=== PATIENT | female | born 1995 | race Caucasian/White ===

== ENCOUNTER 2018-01-24 02:17 | Emergency (ER) | payer OTHER, MEDICAID, SELFPAY ==
[2018-01-24 02:25] VITALS: BP 126/84; PULSE 81; RESP 16; TEMP 37; O2SAT 100; BMI 18.8
[2018-01-24 02:28] VITALS: BP 126/84; PULSE 81; RESP 16; TEMP 37; O2SAT 100; BMI 18.8
[2018-01-24] MEDS: PANTOPRAZOLE 40 MG VIAL IV (02:49)
[2018-01-24] MEDS: SODIUM CHLORIDE 0.9% 1,000 ML 1000 ML IV (02:49)
[2018-01-24] MEDS: ONDANSETRON 4 MG/2 ML INJ IV (02:49)
[2018-01-24] MEDS: KETOROLAC 60 MG/2 ML VIAL 30 MG IV (02:50)
[2018-01-24 02:54] LABS: Add Manual Diff / Slide Review NO; Basophils Percent Auto 0.3 % (0-2); Eosinophils Percent Auto 0.6 % (2-4); Hematocrit 36.3 % (36-46); Hemoglobin 12.5 g/dL (12.0-16.0); Lymphocytes Percent Auto 6.5 % (25-40); Mean Corpuscular HGB Conc 34.3 % (30-36); Mean Corpuscular Hemoglobin 29.9 PG (26-34); Mean Corpuscular Volume 87.3 fL (80-100); Neutrophils Absolute Auto 8300 /uL (3000-5900); Neutrophils Percent Auto 86.6 % (50-75); Platelet Count 238 X10^3/uL (150-400); Red Blood Cell Count 4.16 X10^6/uL (4.0-5.2); White Blood Cell Count 9.5 X10^3/uL (4.5-11.0)
[2018-01-24 02:58] LABS: Alanine Aminotransferase 41 IU/L (9-52); Albumin 4.6 g/dL (3.5-5.0); Albumin Globulin Ratio 1.6 (1.0-2.8); Alkaline Phosphatase 49 U/L (38-126); Aspartate Aminotransferase 69 IU/L (14-36); BUN Creatinine Ratio 11.7 (6-22); Bilirubin Total 0.4 mg/dL (0.2-1.3); Blood Urea Nitrogen 7 mg/dL (7-17); Calcium 9.4 mg/dL (8.4-10.2); Carbon Dioxide 28 mmol/L (22-32); Chloride 104 mmol/L (98-107); Estimated Glomerular Filt Rate > 60.0 mL/min (>60); Globulin 2.8 g/dL (1.7-4.1); Glucose 126 mg/dL (70-100); HEMOLYSIS < 15 (0-50); Lipase 83 U/L (23-300); Potassium 3.3 mmol/L (3.4-5.1); Sodium 144 mmol/L (137-145); Total Protein 7.4 g/dL (6.3-8.2)
--- NOTE | 2018-01-24 03:19 | ED_ITS ---
HPI - Abdominal Pain General Chief Complaint: Abdominal Pain Stated Complaint: STOMACH AND BACK PAIN WITH VOMITING Time Seen by Provider: 01/24/18 02:32 Source: patient Mode of arrival: ambulatory Limitations: no limitations History of Present Illness HPI narrative: Patient is a 22-year-old female who presents with vomiting and diarrhea. She said she had some loose stools today but did not think much of it. However today she started having severe epigastric pain dry heaving and vomiting which woke her from her sleep. She denies any fever or other sick contacts no recent travel. MD complaint: abdominal pain Onset (ago): hour(s) Quality: stabbing Radiation: epigastric Related Data Previous Rx's Medication Instructions Recorded ondansetron 4 mg PO Q6-8H PRN #10 tab 01/24/18 Allergies Allergy/AdvReac Type Severity Reaction Status Date / Time No Known Drug Allergies Allergy Verified 01/24/18 02:48 Review of Systems Review of Systems GENERAL: Denies chills, fatigue, malaise, fever, sweats, travel HEENT: Denies sinus pain, ear pain, sore throat, difficulty swallowing, neck pain RESPIRATORY: Denies dyspnea, cough, wheezing, hemoptysis, sputum. CARDIOVASCULAR: Denies chest pain, palpitations, orthopnea, edema GASTROINTESTINAL: See HPI : Denies dysuria, frequency, incontinence, hematuria, urinary retention, flank pain. MUSCULOSKELETAL: Denies weakness, joint pain, or bony pain SKIN: No rash, no erythema, no pruritus NEUROLOGIC: Denies weakness, dizziness, headache, numbness, change in speech, confusion PSYCHIATRIC: No concerning psychosocial issues. 12 point review of systems is negative except for those stated above and HPI PFSH Medical History Irregular menstrual cycle (Chronic ~2011) Esophagitis (Resolved ~2006) Hx of wisdom tooth extraction (Resolved 2011) Surgical History Hx of toe surgery (Resolved 2006) Family History Father Age: 56 Hypertension Kidney disease Social History Smoking Status: Never smoker alcohol intake: never substance use type: does not use Exam Initial Vital Signs Initial Vital Signs: Vital Signs Temperature 98.6 F 01/24/18 02:25 Pulse Rate 81 01/24/18 02:25 Respiratory Rate 16 01/24/18 02:25 Blood Pressure 126/84 H 01/24/18 02:25 Pulse Oximetry 100 01/24/18 02:25 GENERAL: Alert thin young female appears in pain HEENT: Head atraumatic,EOMI, pupils reactive, , dry mucous membranes CARDIOVASCULAR: Regular rate and rhythm without murmurs, rubs or gallops. RESPIRATORY: Breath sounds equal bilaterally, no wheezes rales or rhonchi. ABDOMEN: Soft, epigastric pain without guarding or rebound : No CVA tenderness EXTREMITIES: Normal range of motion, no clubbing or edema. Neurovascularly intact NEUROLOGICAL: Alert and oriented x4.Normal gait and speech. Cranial nerves II through XII grossly intact. SKIN: Warm, dry, no laceration, no petechiae, no rashes or lesions. Course Orders Ordered: ED Orders 01/24/18 02:35 Complete Blood Count AUTO DIFF Stat Comprehensive Metabolic Panel Stat Lipase Stat 01/24/18 03:05 Urine Culture Stat Urine Microscopic Stat Sodium Chloride (Normal Saline 0.9%) 1,000 mls @ 1,000 mls/hr IV CONT PAULA Last Admin: 01/24/18 02:49 Dose: 1,000 mls/hr Discontinued Medications Ketorolac Tromethamine (Toradol) 30 mg IV NOW ONE Stop: 01/24/18 02:40 Last Admin: 01/24/18 02:50 Dose: 30 mg Ondansetron HCl (Zofran) 4 mg IV NOW ONE Stop: 01/24/18 02:40 Last Admin: 01/24/18 02:49 Dose: 4 mg Ondansetron HCl (Zofran Odt Prepack) 1 bottle MISC SEEINSTR ONE Stop: 01/24/18 03:33 Pantoprazole Sodium (Protonix) 40 mg IV NOW ONE Stop: 01/24/18 02:40 Last Admin: 01/24/18 02:49 Dose: 40 mg Vital Signs - 8 hr 01/24/18 02:25 01/24/18 02:28 Temperature 98.6 F 98.6 F Pulse Rate 81 81 Respiratory Rate 16 16 Blood Pressure 126/84 H 126/84 H Pulse Oximetry 100 100 MDM - Abdominal Pain Lab Data Result diagrams: 01/24/18 02:35 01/24/18 02:35 Lab Results 01/24/18 01/24/18 01/24/18 Range/Units 02:35 02:35 03:05 WBC 9.5 (4.5-11.0) X10^3/uL RBC 4.16 (4.0-5.2) X10^6/uL Hgb 12.5 (12.0-16.0) g/dL Hct 36.3 (36-46) % MCV 87.3 (80-100) fL MCH 29.9 (26-34) PG MCHC 34.3 (30-36) % RDW 13.0 (11.6-14.8) % Plt Count 238 (150-400) X10^3/uL Neut % (Auto) 86.6 H (50-75) % Lymph % (Auto) 6.5 L (25-40) % [place] % (Auto) 6.0 (3-14) % Eos % (Auto) 0.6 L (2-4) % Baso % (Auto) 0.3 (0-2) % Neut # (Auto) 8300 H (5145-3102) /uL Sodium 144 (137-145) mmol/L Potassium 3.3 L (3.4-5.1) mmol/L Chloride 104 (98-107) mmol/L Carbon Dioxide 28 (22-32) mmol/L BUN 7 (7-17) mg/dL Creatinine 0.60 (0.52-1.04) mg/dL Estimated GFR > 60.0 (>60) mL/min BUN/Creatinine Ratio 11.7 (6-22) Glucose 126 H (70-100) mg/dL Calcium 9.4 (8.4-10.2) mg/dL Total Bilirubin 0.4 (0.2-1.3) mg/dL AST 69 H (14-36) IU/L ALT 41 (9-52) IU/L Alkaline Phosphatase 49 (38-126) U/L Total Protein 7.4 (6.3-8.2) g/dL Albumin 4.6 (3.5-5.0) g/dL Globulin 2.8 (1.7-4.1) g/dL Albumin/Globulin Ratio 1.6 (1.0-2.8) Lipase 83 (23-300) U/L Urine RBC 1-5/hpf (0-5/HPF) Urine WBC 0-1/hpf (0-5/HPF) Ur Squamous Epith Cells 0-1 /hpf Urine Bacteria Few (2-10) H (None) Urine Mucus 1+ H (Negative) Ur Culture Indicated? Specimen cultured Micro UA Comment Not Reportable Point of care testing: Point of Care Testing Test Results Negative Urine Dip Bedside Urine Glucose Negative Bedside Urine Bilirubin - Negative Bedside Urine Ketone - Negative Urine Specific [place] 1.030 Bedside Urine Occult Blood +/- Bedside Urine pH 6.0 Bedside Urine Protein - Negative Bedside Urine Urobilinogen - Negative Bedside Urine Nitrite - Negative Bedside Urine Leukocytes +/- 15 Esterase MDM Narrative Medical decision making narrative: Patient is feeling better after medications. She is tolerating oral fluid. No sign severe dehydration. Abdomen is soft. Indication on oral rehydration techniques. All questions have been addressed. Discharge Plan Departure Patient Disposition: Home, Self-Care Clinical Impression: Gastroenteritis Instructions: DI for Viral Gastroenteritis -- Adult Activity Restrictions/Additional Instructions: 1) You have been diagnosed with gastroenteritis 2) What to do: Drink frequent but small amounts of fluids. I recommend Gatorade or a Gatorade-like product, as it has small amounts of sugar and salts that improve fluid retention. 3) Take medications as directed -Zofran 1 tablet every 6-8 hours if needed for nausea or vomiting 4) Follow up with your primary care provider in 2-3 days 5) Return to ER if you should have any new or worsening symptoms such as, unable to hold down fluids despite use of anti-nausea medications and the small volume oral rehydration strategy. Prescriptions: New ondansetron 4 mg tablet,disintegrating 4 mg PO Q6-8H PRN (Reason: nausea and vomiting) Qty: 10 RF: 0 Referrals: Sophia Sawyer PA-C [Primary Care Provider] -
[2018-01-24 03:34] LABS: Bacteria Urine Few (2-10); Culture Indicated Urine Specimen Cultured; Mucus Urine 1+ (Negative); RBC Urine 1-5/HPF (0-5/HPF); Squamous Epithelial Cell Urine 0-1 /HPF; WBC Urine 0-1/HPF (0-5/HPF)
[2018-01-24] MEDS: ONDANSETRON 4 MG ODT PREPACK 1 BOTTLE MISC (03:38)
[2018-01-24 03:43] VITALS: BP 131/87; PULSE 78; RESP 16; O2SAT 100
--- NOTE | 2018-01-24 03:44 | PC.NURSE ---
IV dc, placed by jenae spencer.
== END 2018-01-24 03:45 | disposition home or self-care (01) ==
PROVIDERS: Emergency Provider Emergency Medicine; Family Provider Physician Assistant; PCP Physician Assistant
DX: K52.9 Noninfective gastroenteritis and colitis, unspecified (principal)
CPT/HCPCS: 80053; 81003; 81015; 81025; 83690; 85025; 87086; 96361; 96374; 96375; 99283; 99284; C9113; J1885; J2405

== ENCOUNTER → 2018-05-07 07:42 | Outpatient (CLI) | payer OTHER, SELFPAY ==
--- NOTE | 2018-05-07 | DI.US.S_ITS ---
PROCEDURE: US OB >= 14 WEEKS FETUS INDICATIONS: OUTSIDE/PRIOR DATING DATA: Last menstrual period (LMP): 01/20/18. LMP-based estimated date of delivery (RAFAEL): 10/27/18. First dating scan (date and location): 05/07/18, [facility]. Estimated date of delivery (RAFAEL) from first dating scan: 10/30/18. TECHNIQUE: Real-time scanning was performed of the fetus, with image documentation and biometric measurements. Endovaginal scanning: Not done COMPARISON: None. FINDINGS: General: A single live intrauterine gestation is present. Presentation: Vertex. Placenta: Placental position is posterior/low, without suki placenta previa. The inferior placental edge views seen 1.2 cm from the internal cervical os. Amniotic fluid index: Not specifically measured, yet within normal limits by visual inspection heart rate: 153 beats per minute. Maternal cervical canal: 3.3 cm long. Normal lower limit is 2.5 cm. biometrics: Biparietal diameter: 2.7 cm equals 14 weeks 6 days Head circumference: 9.7 cm equals 14 weeks 3 days Abdominal circumference: 9.2 cm equals 13 weeks 3 days Femur length: 1.5 cm equals 13 weeks 3 days Estimated gestational age from initial scan: not applicable. Composite gestational age from present scan: 14 weeks 6 days Estimated weight and percentile: Not calculated Measurement variability for biometric dating: +/- 7 days from 14 weeks to 15 weeks 6 days gestation, +/- 10 days from 16 weeks to 21 weeks 6 days gestation, +/- 2 weeks from 22 weeks to 27 weeks 6 days gestation, +/- 3 weeks for 28 weeks gestation or later. weight reference: 4500 g or EFW >90/95% is considered macrosomia or large for gestational age. EFW <10% is small for gestational age. EFW 5% or less is considered intra-uterine growth restriction. Anatomic survey: Too early for detailed anatomic screening, although no gross abnormality is identified. IMPRESSION: A single live intrauterine is seen. No significant discrepancy is found between the estimated gestational age based on these images and the estimated gestational age based upon the given date of the last menstrual period. Low-lying placenta, yet without suki placenta previa. Dictated by: Greg Philip M.D. on 05/07/2018 at 8:34 Approved by: Greg Philip M.D. on 05/07/2018 at 8:38
== END ==
PROVIDERS: PCP Family Medicine; Visit Provider Family Medicine
DX: Z34.92 Encounter for supervision of normal pregnancy, unspecified, second trimester (principal); Z3A.14 14 weeks gestation of pregnancy
CPT/HCPCS: 76811

== ENCOUNTER → 2018-07-15 14:56 | Outpatient (CLI) | payer OTHER, SELFPAY ==
--- NOTE | 2018-07-15 | DI.US.S_ITS ---
PROCEDURE: US OB >= 14 WEEKS FETUS INDICATIONS: ANATOMY SCAN OUTSIDE/PRIOR DATING DATA: Last menstrual period (LMP): 01/20/18. LMP-based estimated date of delivery (RAFAEL): 10/27/18. First dating scan (date and location): 05/07/18, [facility]. Estimated date of delivery (RAFAEL) from first dating scan: 10/30/18. TECHNIQUE: Real-time scanning was performed of the fetus, with image documentation and biometric measurements. Endovaginal scanning: No COMPARISON: [facility], , OB >= 14 WEEKS FETUS, 05/07/2018, 8:19. FINDINGS: General: A single living intrauterine gestation is present. Presentation: Vertex Placenta: Placental position is posterior, without previa. Amniotic fluid index: 10.4 cm, normal range is 5-24 cm. heart rate: 143 beats per minute. Maternal cervical canal: 3.2 cm long. Normal lower limit is 2.5 cm biometrics: Biparietal diameter: 23 weeks 4 days Head circumference: 23 weeks 5 days Abdominal circumference: 23 weeks 1 day Femur length: 22 weeks 6 days Estimated gestational age from initial scan: 24 weeks 5 days Composite gestational age from present scan: 23 weeks 3 days Estimated weight and percentile: 567 g; 3rd percentile Measurement variability for biometric dating: +/- 7 days from 14 weeks to 15 weeks 6 days gestation, +/- 10 days from 16 weeks to 21 weeks 6 days gestation, +/- 2 weeks from 22 weeks to 27 weeks 6 days gestation, +/- 3 weeks for 28 weeks gestation or later. weight reference: 4500 g or EFW >90/95% is considered macrosomia or large for gestational age. EFW <10% is small for gestational age. EFW 5% or less is considered intra-uterine growth restriction. Anatomic survey: Neuro: Ventricles are non-dilated at less than 10 mm. Cisterna magna is normal at 3-11 mm. Cerebellum is normal in size and morphology. Nuchal skin fold: Normal at less than 6 mm between 14-21 weeks gestational age. Face: Not well-seen. Spine: No evidence for spina bifida. Heart: Normal four-chamber heart and RVOT. LVOT not well-seen. Diaphragm: Diaphragm is intact. Stomach: Left-sided stomach is present. Kidneys: No hydronephrosis. Normal is less than 5 mm in 2nd trimester, less than 7 mm in 3rd trimester. Cord: 3-vessel cord has orthotopic insertion. Bladder: Normal in size. Extremities: All 4 extremities identified. IMPRESSION: 1. Single living IUP redemonstrated and interval growth is less than expected with estimated weight at the 3rd percentile. Recommend close clinical correlation to exclude early developing intrauterine growth restriction. 2. Left ventricular low outflow track as well as the facial features are not well seen. Followup recommended. Dictated by: Jas Bingham [facility] Interpreted: Patricia Baxter MD on 07/15/2018 at 16:42 Approved by: Patricia Baxter MD, PhD on 07/15/2018 at 17:51
== END ==
PROVIDERS: PCP Family Medicine; Visit Provider Family Medicine
DX: Z36.89 Encounter for other specified antenatal screening (principal); Z3A.23 23 weeks gestation of pregnancy
CPT/HCPCS: 76811

== ENCOUNTER → 2018-08-10 15:59 | Outpatient (REF) | payer OTHER, SELFPAY ==
[2018-08-10 16:12] LABS: Hematocrit 32.4 % (36-46); Hemoglobin 11.4 g/dL (12.0-16.0)
[2018-08-10 16:38] LABS: GTT (PREG) 1 Hour PP 50gm Dose 107 mg/dL (76-139)
== END ==
LOC: LAB 15:59
PROVIDERS: PCP Family Medicine; Visit Provider Family Medicine
DX: Z34.00 Encounter for supervision of normal first pregnancy, unspecified trimester (principal)
CPT/HCPCS: 82950; 85014; 85018

== ENCOUNTER → 2018-08-12 13:27 | Outpatient (CLI) | payer OTHER, MEDICAID, SELFPAY ==
--- NOTE | 2018-08-12 | DI.US.S_ITS ---
PROCEDURE: US OB FOLLOW UP INDICATIONS: FOLLOW UP OUTSIDE/PRIOR DATING DATA: Last menstrual period (LMP): 01/20/18. LMP-based estimated date of delivery (RAFAEL): 10/27/18. First dating scan (date and location): 05/07/18. Estimated date of delivery (RAFAEL) from first dating scan: 10/30/18. TECHNIQUE: Real-time scanning was performed of the fetus, with image documentation and biometric measurements. Endovaginal scanning: Not performed COMPARISON: None. FINDINGS: General: A single living intrauterine gestation is present. Presentation: Vertex. Placenta: Placental position is posterior/fundal, without previa. Lower placental edge 2 cm or less from internal cervical os qualifies as low lying placenta. Amniotic fluid index: 13.1 cm, normal range is 5-24 cm. heart rate: 122 beats per minute. Maternal cervical canal: Not visualized biometrics: Biparietal diameter: 7.1 cm, 20 weeks, 4 days Head circumference: 26.7 cm, 29 weeks one day Abdominal circumference: 23.7 cm, 20 weeks zero days Femur length: 4.6 cm, 25 weeks 3 days Estimated gestational age from initial scan: 28 weeks, 5 days Composite gestational age from present scan: 27 weeks, 6 days Estimated weight and percentile: 1045 g, 5th percentile Measurement variability for biometric dating: +/- 7 days from 14 weeks to 15 weeks 6 days gestation, +/- 10 days from 16 weeks to 21 weeks 6 days gestation, +/- 2 weeks from 22 weeks to 27 weeks 6 days gestation, +/- 3 weeks for 28 weeks gestation or later. weight reference: 4500 g or EFW >90/95% is considered macrosomia or large for gestational age. EFW <10% is small for gestational age. EFW 5% or less is considered intra-uterine growth restriction. Other: The nose, lips, 4 chamber heart, and ventricular outflow tracts have a normal appearance. IMPRESSION: 1. Single live intrauterine gestation with a composite gestational age of 27 weeks, 6 days which is concordant with the dates by initial scan. 2. Gestational weight in the 5th percentile. Developing microsomia cannot be excluded. Dictated by: Gaby Connelly M.D. on 08/12/2018 at 14:46 Approved by: Gaby Connelly M.D. on 08/12/2018 at 14:50
== END ==
PROVIDERS: PCP Family Medicine; Visit Provider Family Medicine
DX: Z34.92 Encounter for supervision of normal pregnancy, unspecified, second trimester (principal); Z3A.27 27 weeks gestation of pregnancy
CPT/HCPCS: 76816

== ENCOUNTER 2018-08-28 19:50 | Inpatient (IN) | payer OTHER, MEDICAID, SELFPAY ==
--- NOTE | 2018-08-28 20:26 | PM.OBPRVD ---
Events: Labor < 37 Weeks Delivery date: 08/28/18 Intrapartal events: Precipitous Labor < 3 hours Delivery monitor: external FHT Route of delivery: L&D Laceration Description: None Estimated blood loss (mL): 100 Anesthesia type: None Narrative: Patient arrived on Labor and delivery and was found to be completely dilated with spontaneous rupture membranes when she arrived. heart tones were reassuring. The patient delivered spontaneously over an intact perineum. The cord was clamped after 1 min and the baby transferred from the maternal abdomen to the warmer. the placenta delivered spontaneously, intact, with 3 vessels. There were no cervical, vaginal, or perineal tears. Mother is doing well. The infant is stable. Baby 1: Infant gender: Female Presentation: vertex position: Right Occiput Anterior Placenta delivery description: Spontaneous cord vessel description: 3 Vessels score (1 min): 7 score (5 min): 9
[2018-08-28 22:32] VITALS: BP 130/78
--- NOTE | 2018-08-28 23:01 | P.HPOB_ITS ---
OB HPI Date/Time Date of admission: 08/28/18 Date Patient Seen: 08/28/18 Time Patient Seen: 20:23 History of Present Condition Chief complaint: : 1 Estimated Date of Delivery: 10/31/18 Estimated Gestational Age (weeks): Thirty Narrative: Jaclyn Najera is a 23 year old female is 30 weeks gestational age who presents with is increasing abdominal pain. Patient called me a she was sent to the hospital. Apparently she was having contractions after intercourse at 3 in the morning. She is having maybe hourly contractions through the day no leaking fluid. Patient was increasing painful over the last hour prior to presentation. Patient came to the hospital. While she was taking a urine sample when her bag of water ruptured. 5 min later she delivered. Clear fluid. His no other significant changes. Doctor Foist was here for delivery. Mom denies any leaking fluid. Any pain. Any nausea or vomiting. No fevers or chills. Is denies drug or alcohol use. Does smoke. History of Present care: good care Dating criteria: LMP confirmed by 1st trimester US Ultrasounds: normal mid trimester US Abnormal ultrasound findings: The child was 2% and 5% was being followed for SGA Obstetrical complications: none Medical complications: none Preadmission Labs Blood type: A (+) positive -: Antibody screen: negative, Cystic fibrosis screen: negative, GBS status: negative, HBsAG: negative, HIV: negative, HSV 1: positive, HSV 2: negative and RPR/VDLR: negative -: Chlamydia screen: not detected and Gonorrhea screen: not detected -: Rubella: immune and Varicella: immune HCT: 32.2 HCAB: negative PAP: Normal Sequential screen: Normal Quad screen: Normal Prior (ies) History: None Evaluation Evaluation Comments: Mom presented and basically delivered as heart monitor was not followed long enough to get an adequate strep PFSH Medical History Irregular menstrual cycle (Chronic ~2011) Esophagitis (Resolved ~2006) Hx of wisdom tooth extraction (Resolved 2011) Surgical History Hx of toe surgery (Resolved 2006) Family History Father Age: 56 Hypertension Kidney disease Social History Smoking Status: Current every day smoker alcohol intake: never substance use type: does not use Social History Smoking Status: Current every day smoker alcohol intake: never substance use type: does not use Meds Home Medications Medication Instructions Recorded Confirmed Type No Known Home Medications 08/28/18 08/28/18 History Allergies Allergy/AdvReac Type Severity Reaction Status Date / Time No Known Drug Allergies Allergy Verified 01/24/18 02:48 Review of Systems Review of Systems All systems reviewed & are unremarkable except as noted in HPI and below Exam Vital Signs (past 8 hours): - 08/28/18 22:32 Blood Pressure 130/78 Narrative Exam Narrative: Alert female no acute distress HEENT exam is unremarkable neck supple without adenopathy lungs are clear heart regular rate and rhythm abdomen is soft uterus is firm extremities without cyanosis clubbing edema. Objective Labs Labs: Assessment and plan. Thirty week gestational age delivered. Mom when doing extremely well. No other changes. Would like to go to [facility] to follow her baby. We will go through usual and then discharge. Usual education discussed with patient. She understands. Follow-up is with me in 2 weeks
[2018-08-28 23:25] VITALS: BP 115/71; PULSE 68; RESP 14; TEMP 37
[2018-08-28 23:56] LABS: Add Manual Diff / Slide Review NO; Basophils Absolute Auto 0 /uL (0-100); Basophils Percent Auto 0.2 % (0-2); Eosinophils Absolute Auto 0 /uL (0-450); Hemoglobin 11.3 g/dL (12.0-16.0); Lymphocytes Absolute Auto 800 /uL (1100-4500); Lymphocytes Percent Auto 3.8 % (25-40); Mean Corpuscular HGB Conc 34.3 % (30-36); Mean Corpuscular Hemoglobin 29.6 PG (26-34); Mean Corpuscular Volume 86.2 fL (80-100); Monocytes Absolute Auto 900 /uL (0-900); Monocytes Percent Auto 4.2 % (3-14); Neutrophils Absolute Auto 19000 /uL (1500-7000); Neutrophils Percent Auto 91.8 % (50-75); Platelet Count 253 X10^3/uL (150-400); Red Blood Cell Count 3.83 X10^6/uL (4.0-5.2); Red Cell Distribution Width 12.9 % (11.6-14.8); White Blood Cell Count 20.7 X10^3/uL (4.5-11.0)
== END 2018-08-29 01:30 | disposition home or self-care (01) | DRG 807 ==
PROVIDERS: Admitting Provider Family Medicine; PCP Family Medicine; Visit Provider Family Medicine
DX: O60.14X0 Preterm labor third trimester with preterm delivery third trimester, not applicable or unspecified (principal); Z37.0 Single live birth; Z3A.30 30 weeks gestation of pregnancy; O62.3 Precipitate labor; O99.334 Smoking (tobacco) complicating childbirth
CPT/HCPCS: 36415; 59050; 59409; 84112; 85025; G0378; G0379

== ENCOUNTER → 2022-01-07 18:48 | Outpatient (CLI) | payer OTHER, MEDICAID, SELFPAY | PROVIDERS: PCP Family Medicine; Visit Provider Nurse Practitioner Family | DX: R30.0 Dysuria (principal) | CPT/HCPCS: 81002; 87077; 87086; 87186 ==

== ENCOUNTER → 2023-12-29 10:16 | Outpatient (CLI) | payer OTHER, MEDICAID, SELFPAY ==
--- NOTE | 2023-12-29 10:19 | DI.RAD.S_ITS ---
PROCEDURE: XR FOOT RT MIN 3V INDICATIONS: Plantar fascial fibromatosis TECHNIQUE: 3 views of the foot were acquired. COMPARISON: None. FINDINGS: Bones: No fractures or dislocations. No suspicious bony lesions. Soft tissues: No tibiotalar joint effusion. Achilles tendon appears normal. IMPRESSION: No significant osseous abnormality. Dictated by: Ross Darden M.D. on 12/29/2023 at 13:45 Approved by: Ross Darden M.D. on 12/29/2023 at 13:49
== END ==
LOC: RAD 10:18
PROVIDERS: PCP Family Medicine; Referring Provider Physician Assistant; Visit Provider Physician Assistant
DX: M72.2 Plantar fascial fibromatosis (principal)
CPT/HCPCS: 73630

== ENCOUNTER 2024-05-16 11:15 | Inpatient (IN) | payer OTHER, MEDICAID, SELFPAY ==
[2024-05-16] VITALS (21 sets, daily range): BP systolic 120–147; BP diastolic 84–101; PULSE 62–109; RESP 16–18; TEMP 36.2–37.3; O2SAT 94–100; BMI 18.8
--- NOTE | 2024-05-16 11:35 | ED_ITS ---
HPI - Nausea/Vomiting/Diarrhea <Vidya Delacruz PA-C - Last Filed: 05/16/24 18:41> General Chief complaint: Nausea/Vomiting/Diarrhea Stated complaint: vomiting, nausea, stomach cramping Time Seen by Provider: 05/16/24 11:21 Source: patient and family Mode of arrival: Ambulatory History of Present Illness HPI Narrative: This is a 29-year-old patient who presents with concern for about 10 episodes of vomiting this morning with inability to keep food or fluids down and 6/10 upper abdominal pain. Patient states she was feeling unwell yesterday with severe headache and photosensitivity and today her headache is gone but she has been nauseous with upper abdominal pain. She states she had her last bowel movement on which is pretty typical for her to go 3 or so days between bowel movements. She describes her abdominal pain as a constant ache that feels like someone is squeezing she says nothing seems to make it worse or better. Her primary concern today is her abdominal pain and nausea and vomiting. She does state that she does not typically get headaches like she had yesterday she says she felt like it was a sinus headache as it was pressure behind her eyes. She has been dealing with some congestion and she thinks possibly a cough over the past week though these symptoms have been quite mild. She has not had any fevers although states that last night she felt warmer than usual. She notes that lately when she pees she does feel like she has not completely emptied her bladder although she has not having any pain with urination and has not noted frequency or urgency. Her states that she seems like she has been having more health issues for the past 3 months and has been feeling unwell a lot. They advised that she does smoke marijuana daily usually in the evenings. She does not smoke cigarettes or use edibles and denies any other recreational drug use except she does drink alcohol-about 2 Jordan's hard lemonades daily in the evenings she and her state that this is slightly less than she used to drink a month or more ago she drank about 3 of these a day and sometimes they drank ?more heavily? previously. She has not been able to keep any food or fluids down today. She also did not eat anything yesterday as she was feeling unwell. On Friday she states she had a yogurt cup only. She says in general she has not been eating much for awhile as she does not have much appetite. She says that she has been under a lot of extra stress recently, that she has seeing a counselor which she is finding somewhat helpful. She declines meeting with social work today. Patient states she has regular periods for the most part they are not completely regular but around every 28 days. Her last was 2 weeks ago, she says she is sexually active and is not on control. She denies fevers, chills, headache, neck pain, flank pain, dysuria, diarrhea, constipation, vision change, chest pain, dizziness, lightheadedness or any other symptoms. Related Data Previous Rx's Medication Instructions Recorded acetaminophen 325 mg tablet 650 mg (2 x 325 mg) PO Q6H 30 days 05/24/24 #240 tabs enoxaparin 40 mg/0.4 mL 40 mg (0.4 mL) SUBCUT DAILY 90 05/24/24 subcutaneous syringe (Lovenox) days #36 mL ibuprofen 400 mg tablet 400 mg PO Q4H 5 days #30 tabs 05/24/24 methocarbamol 500 mg tablet 500 mg PO QID PRN Muscle Spasm 14 05/24/24 days #56 tabs Allergies Allergy/AdvReac Type Severity Reaction Status Date / Time No Known Drug Allergies Allergy Verified 05/16/24 11:26 Review of Systems <Vidya Delacruz PA-C - Last Filed: 05/16/24 18:41> Review of Systems Narrative: See HPI Patient History <Vidya Delacrzu PA-C - Last Filed: 05/16/24 18:41> Medical History Irregular menstrual cycle (~2011) Esophagitis (~2006) Surgical History Hx of toe surgery (2006) Hx of wisdom tooth extraction (2011) Family History Father Age: 62 Hypertension Kidney disease Social History household members: spouse and children Smoking Status: Current every day smoker alcohol intake: current substance use type: does not use Smoking Status: Current every day smoker alcohol intake frequency: 0-2 drinks per day Substance Use Type: marijuana Exam <Vidya Delacruz PA-C - Last Filed: 05/16/24 18:41> Narrative Exam Narrative: GENERAL: [29] year old patient appears stated age. Very slim patient, in moderate distress acute on chronically ill-appearing. HEAD: Atraumatic. Normocephalic. EYES: Pupils equal round and reactive. Extraocular motions intact. No scleral icterus. No injection or drainage. ENT: Nose without bleeding, purulent drainage. Throat without erythema, tonsillar hypertrophy or exudate. Airway patent. NECK: Trachea midline. Non tender CARDIOVASCULAR: Regular rate and rhythm without murmurs, gallops, or rubs. RESPIRATORY: Clear to auscultation. Breath sounds equal bilaterally. No wheezes, rales, or rhonchi. GASTROINTESTINAL: Abdomen soft, there is upper abdominal tenderness in the right and left upper quadrants with no significant increase in pain with palpation, nondistended; negative McBurney's point tenderness, negative Rovsing, negative Nesbitt's sign; no CVA tenderness. EXTREMITIES: Moving all extremities without difficulty BACK: No flank tenderness. NEURO: AOx3. SKIN: No rash or erythema of visible areas Initial Vital Signs Initial Vital Signs: Vital Signs Pulse Rate 83 05/16/24 11:22 Respiratory Rate 16 05/16/24 11:22 Blood Pressure 140/91 H 05/16/24 11:22 Pulse Oximetry 99 05/16/24 11:22 <Cosmo Olmstead DO - Last Filed: 05/26/24 17:55> Initial Vital Signs Initial Vital Signs: Vital Signs Pulse Rate 83 05/16/24 11:22 Respiratory Rate 16 05/16/24 11:22 Blood Pressure 140/91 H 05/16/24 11:22 Pulse Oximetry 99 05/16/24 11:22 Course <Vidya Delacruz PA-C - Last Filed: 05/16/24 18:41> Course Course Narrative: Labs came back showing elevated sodium to 161 as well as elevated lipase 1300. CT scan abdomen pelvis is ordered and NS bolus is held. Anticipate admission for pancreatitis given inability to tolerate fluids p.o. and critical sodium level. 1220 Updated the patient and her regarding concern for pancreatitis the high sodium levels and likely admission today as well as plan for CT. 1229 Did also discuss this patient with ED attending physician Dr. Olmstead and initiate D5 in water at 70ml/hr IV. 1245 Decision to Admit Date: 05/16/24 Decision to Admit time: 12:20 Orders Ordered: Discontinued Medications Acetaminophen (Acetaminophen 325 Mg Tablet) 650 mg PO Q6H [facility] Last Admin: 05/24/24 13:26 Dose: 650 mg Documented By: Admin: 05/24/24 06:15 Dose: 650 mg Documented By: Admin: 05/24/24 01:39 Dose: 650 mg Documented By: Admin: 05/23/24 21:06 Dose: 650 mg Documented By: Admin: 05/23/24 14:52 Dose: Not Given Documented By: SAMANTHA Apixaban (Apixaban 5 Mg Tablet) 5 mg PO BID [facility] Bisacodyl (Bisacodyl 10 Mg Supp) 10 mg AR DAILY PRN PRN Reason: Constipation Bupivacaine HCl/Epinephrine Bitart (Bupivacaine 0.5% W/ Epi (Pf) 30 Ml Vial) 30 ml INJ NOW ONE Stop: 05/23/24 12:23 Last Admin: 05/23/24 12:23 Dose: 30 ml Documented By: PH Bupivacaine HCl/Epinephrine Bitart (Bupivacaine 0.5% W/ Epi (Pf) 10 Ml Vial) 10 ml INJ NOW ONE Stop: 05/23/24 12:25 Last Admin: 05/23/24 12:25 Dose: 10 ml Documented By: PH Diphenhydramine HCl (Diphenhydramine 50 Mg/Ml Vial) 25 mg IV Q6HR PRN PRN Reason: Itching Docusate Sodium (Docusate 100 Mg Capsule) 100 mg PO BID PRN PRN Reason: Constipation Enoxaparin Sodium (Enoxaparin 40 Mg/0.4 Ml Syringe) 40 mg SUBCUT DAILY [facility] Last Admin: 05/23/24 09:02 Dose: Not Given Documented By: Admin: 05/22/24 08:34 Dose: Not Given Documented By: Admin: 05/21/24 09:43 Dose: Not Given Documented By: Admin: 05/20/24 10:13 Dose: Not Given Documented By: Admin: 05/19/24 08:06 Dose: 40 mg Documented By: Admin: 05/18/24 09:06 Dose: Not Given Documented By: Admin: 05/17/24 08:17 Dose: 40 mg Documented By: SANDRA Enoxaparin Sodium (Enoxaparin 40 Mg/0.4 Ml Syringe) 40 mg SUBCUT DAILY [facility] Last Admin: 05/24/24 09:09 Dose: Not Given Documented By: JESSENIA Famotidine (Famotidine 20 Mg/2 Ml Vial) 20 mg IV NOW [facility] Last Admin: 05/16/24 11:44 Dose: 20 mg Documented By: AUTUMN Fentanyl (Fentanyl 100 Mcg/2 Ml Inj) 0 mcg IV Q5M PRN PRN Reason: Pain, Moderate (4-6) Hydromorphone HCl (Hydromorphone 0.5 Mg Inj) 0.2 mg IV NOW ONE Stop: 05/16/24 12:27 Last Admin: 05/16/24 13:04 Dose: 0.2 mg Documented By: AUTUMN Hydromorphone HCl (Hydromorphone 0.5 Mg Inj) 0.2 mg IV Q1HR PRN PRN Reason: Pain, Moderate (4-6) Last Admin: 05/16/24 16:53 Dose: 0.2 mg Documented By: Admin: 05/16/24 15:48 Dose: 0.2 mg Documented By: AUTUMN Hydromorphone HCl (Hydromorphone 0.5 Mg Inj) 0.5 mg IV Q2H PRN PRN Reason: Pain, Moderate (4-6) Hydromorphone HCl (Hydromorphone 1 Mg Inj) 1 mg IV Q2H PRN PRN Reason: Pain, Severe (7-10) Last Admin: 05/19/24 06:32 Dose: 1 mg Documented By: Admin: 05/19/24 02:50 Dose: 1 mg Documented By: Admin: 05/18/24 23:31 Dose: 1 mg Documented By: Admin: 05/18/24 20:49 Dose: 1 mg Documented By: [place] Admin: 05/18/24 16:51 Dose: 1 mg Documented By: Admin: 05/18/24 14:43 Dose: 1 mg Documented By: Admin: 05/18/24 11:19 Dose: 1 mg Documented By: Admin: 05/18/24 08:18 Dose: 1 mg Documented By: Admin: 05/18/24 06:13 Dose: 1 mg Documented By: Admin: 05/18/24 04:23 Dose: 1 mg Documented By: Admin: 05/18/24 02:15 Dose: 1 mg Documented By: Admin: 05/17/24 23:18 Dose: 1 mg Documented By: Admin: 05/17/24 19:56 Dose: 1 mg Documented By: Admin: 05/17/24 16:12 Dose: 1 mg Documented By: Admin: 05/17/24 14:35 Dose: 1 mg Documented By: Admin: 05/17/24 11:54 Dose: 1 mg Documented By: Admin: 05/17/24 08:17 Dose: 1 mg Documented By: Admin: 05/17/24 06:38 Dose: 1 mg Documented By: Admin: 05/17/24 04:28 Dose: 1 mg Documented By: Admin: 05/17/24 02:41 Dose: 1 mg Documented By: Admin: 05/17/24 00:35 Dose: 1 mg Documented By: Admin: 05/16/24 21:06 Dose: 1 mg Documented By: Admin: 05/16/24 18:31 Dose: 1 mg Documented By: NEELIMA Hydromorphone HCl (Hydromorphone 0.5 Mg Inj) 0.2 mg IV Q1HR PRN PRN Reason: Pain, Moderate (4-6) Last Admin: 05/19/24 17:10 Dose: 0.2 mg Documented By: Admin: 05/19/24 15:19 Dose: 0.2 mg Documented By: Admin: 05/19/24 12:27 Dose: 0.2 mg Documented By: SHANNAN Hydromorphone HCl (Hydromorphone 0.5 Mg Inj) 0.5 mg IV Q2H PRN PRN Reason: Pain, Severe (7-10) Last Admin: 05/19/24 20:59 Dose: 0.5 mg Documented By: SIERRA Hydromorphone HCl (Hydromorphone 1 Mg Inj) 1 mg IV Q2H PRN PRN Reason: Pain, Moderate (4-6) Last Admin: 05/20/24 03:40 Dose: 1 mg Documented By: Admin: 05/20/24 00:43 Dose: 1 mg Documented By: RUSS Hydromorphone HCl (Hydromorphone 2 Mg Tablet) 2 mg PO Q6HR PRN PRN Reason: Pain, Severe (7-10) Last Admin: 05/23/24 03:25 Dose: 2 mg Documented By: Admin: 05/22/24 21:30 Dose: 2 mg Documented By: Admin: 05/22/24 02:32 Dose: 2 mg Documented By: Admin: 05/21/24 04:43 Dose: 2 mg Documented By: LEI Hydromorphone HCl (Hydromorphone 2 Mg Tablet) 1 mg PO Q3H PRN PRN Reason: Pain, Moderate (4-6) Last Admin: 05/22/24 08:32 Dose: 1 mg Documented By: Admin: 05/21/24 21:34 Dose: 1 mg Documented By: Hydromorphone HCl (Hydromorphone 1 Mg Inj) 0 mg IV Q5MIN PRN PRN Reason: Pain, Moderate (4-6) Hydroxyzine HCl (Hydroxyzine 50 Mg/Ml Inj) 25 mg IM NOW PRN PRN Reason: Pain, Mild (1-3) Sodium Chloride (Normal Saline 0.9%) 1,000 mls @ 1,000 mls/hr IV BOLUS ONE Stop: 05/16/24 12:32 Last Infusion: 05/16/24 12:15 Dose: Infused Documented By: Admin: 05/16/24 11:44 Dose: 1,000 mls/hr Documented By: AUTUMN Dextrose (Dextrose 5% Water) 1,000 mls @ 70 mls/hr IV CONT PAULA Last Infusion: 05/16/24 20:19 Dose: 0 mls/hr Documented By: Infusion: 05/16/24 17:52 Dose: 70 mls/hr Documented By: Infusion: 05/16/24 17:40 Dose: 0 mls/hr Documented By: Admin: 05/16/24 13:10 Dose: 70 mls/hr Documented By: AUTUMN Sodium Chloride (Normal Saline 0.9%) 1,000 mls @ 125 mls/hr IV CONT PAULA Last Admin: 05/19/24 02:51 Dose: 150 mls/hr Documented By: Infusion: 05/19/24 01:40 Dose: Infused Documented By: Admin: 05/18/24 18:59 Dose: 150 mls/hr Documented By: Infusion: 05/18/24 17:56 Dose: Infused Documented By: Admin: 05/18/24 11:15 Dose: 150 mls/hr Documented By: Infusion: 05/18/24 10:32 Dose: Infused Documented By: Admin: 05/18/24 03:51 Dose: 150 mls/hr Documented By: Infusion: 05/18/24 03:51 Dose: Infused Documented By: Admin: 05/17/24 21:20 Dose: 150 mls/hr Documented By: Infusion: 05/17/24 21:18 Dose: Infused Documented By: Infusion: 05/17/24 16:12 Dose: 150 mls/hr Documented By: Admin: 05/17/24 14:38 Dose: 150 mls/hr Documented By: Infusion: 05/17/24 14:38 Dose: Infused Documented By: Admin: 05/17/24 06:21 Dose: 100 mls/hr Documented By: Infusion: 05/17/24 06:21 Dose: Infused Documented By: Admin: 05/16/24 20:15 Dose: 75 mls/hr Documented By: ELENA Ceftriaxone Sodium 2,000 mg/ (Sodium Chloride) 100 mls @ 200 mls/hr IV Q24H [facility] Last Admin: 05/19/24 08:06 Dose: 200 mls/hr Documented By: Infusion: 05/18/24 09:40 Dose: Infused Documented By: Admin: 05/18/24 09:06 Dose: 200 mls/hr Documented By: Infusion: 05/17/24 09:10 Dose: Infused Documented By: Admin: 05/17/24 08:38 Dose: 200 mls/hr Documented By: SANDRA POTASSIUM CHLORIDE IN WATER (Potassium Cl 10 Meq/100 Ml Michaela) 10 meq in 100 mls @ 100 mls/hr IV Q1H [facility] Stop: 05/17/24 11:44 Last Admin: 05/17/24 13:17 Dose: 100 mls/hr Documented By: Infusion: 05/17/24 13:04 Dose: Infused Documented By: Admin: 05/17/24 12:04 Dose: 100 mls/hr Documented By: SANDRA Ceftriaxone Sodium 2,000 mg/ (Sodium Chloride) 100 mls @ 200 mls/hr IV Q24H [facility] Last Admin: 05/21/24 12:15 Dose: 200 mls/hr Documented By: Infusion: 05/20/24 15:58 Dose: Infused Documented By: Admin: 05/20/24 14:17 Dose: 200 mls/hr Documented By: Infusion: 05/19/24 15:18 Dose: Infused Documented By: Admin: 05/19/24 12:27 Dose: 200 mls/hr Documented By: SHANNAN Sodium Chloride (Normal Saline 0.9%) 1,000 mls @ 125 mls/hr IV CONT PAULA Last Infusion: 05/23/24 12:17 Dose: Infused Documented By: Admin: 05/23/24 07:21 Dose: 125 mls/hr Documented By: Infusion: 05/23/24 06:51 Dose: Infused Documented By: Admin: 05/22/24 22:51 Dose: 125 mls/hr Documented By: Infusion: 05/22/24 22:51 Dose: Infused Documented By: Admin: 05/22/24 14:53 Dose: 125 mls/hr Documented By: Infusion: 05/22/24 10:50 Dose: Infused Documented By: Admin: 05/22/24 02:50 Dose: 125 mls/hr Documented By: Infusion: 05/22/24 02:12 Dose: Infused Documented By: Admin: 05/21/24 18:12 Dose: 125 mls/hr Documented By: Infusion: 05/21/24 17:44 Dose: Infused Documented By: Admin: 05/21/24 09:44 Dose: 125 mls/hr Documented By: Infusion: 05/20/24 15:58 Dose: Infused Documented By: Admin: 05/19/24 21:35 Dose: 125 mls/hr Documented By: SIERRA Sodium Chloride (Normal Saline 0.9%) 1,000 mls @ 125 mls/hr IV CONT PAULA POTASSIUM CHLORIDE IN WATER (Potassium Cl 10 Meq/100 Ml Michaela) 10 meq in 100 mls @ 100 mls/hr IV Q1H [facility] Stop: 05/21/24 15:14 Last Admin: 05/21/24 15:38 Dose: 100 mls/hr Documented By: Infusion: 05/21/24 15:37 Dose: Infused Documented By: Admin: 05/21/24 14:37 Dose: 100 mls/hr Documented By: Infusion: 05/21/24 14:23 Dose: Infused Documented By: Admin: 05/21/24 13:23 Dose: 100 mls/hr Documented By: Infusion: 05/21/24 13:14 Dose: Infused Documented By: Admin: 05/21/24 12:14 Dose: 100 mls/hr Documented By: Infusion: 05/21/24 12:01 Dose: Infused Documented By: Admin: 05/21/24 11:01 Dose: 100 mls/hr Documented By: Infusion: 05/21/24 10:43 Dose: Infused Documented By: Admin: 05/21/24 09:43 Dose: 100 mls/hr Documented By: MAKEDA POTASSIUM CHLORIDE IN WATER (Potassium Cl 10 Meq/100 Ml Michaela) 10 meq in 100 mls @ 100 mls/hr IV Q1H [facility] Stop: 05/22/24 10:14 Last Admin: 05/22/24 09:52 Dose: 100 mls/hr Documented By: Infusion: 05/22/24 09:35 Dose: Infused Documented By: Admin: 05/22/24 08:35 Dose: 100 mls/hr Documented By: SAMANTHA Cefotetan Disodium 2 gm/ (Sodium Chloride) 100 mls @ 200 mls/hr IV NOW ONE Stop: 05/23/24 11:38 Last Admin: 05/23/24 14:54 Dose: Not Given Documented By: SAMANTHA Lactated Ringer's (Lactated Ringers) 1,000 mls @ 42 mls/hr IV CONT PAULA Last Admin: 05/23/24 12:16 Dose: 42 mls/hr Documented By: OJ Acetaminophen (Ofirmev) 1,000 mg in 100 mls @ 400 mls/hr IV NOW ONE Stop: 05/23/24 12:39 Last Infusion: 05/23/24 11:59 Dose: Infused Documented By: Admin: 05/23/24 11:57 Dose: 400 mls/hr Documented By: OJ Cefazolin Sodium/Dextrose (Ancef) 100 mls @ 200 mls/hr IV NOW ONE Stop: 05/23/24 12:56 Last Infusion: 05/23/24 12:01 Dose: Infused Documented By: Admin: 05/23/24 11:53 Dose: 200 mls/hr Documented By: OJ Ibuprofen (Ibuprofen 400 Mg Tablet) 400 mg PO Q4H [facility] Last Admin: 05/24/24 13:45 Dose: 400 mg Documented By: Admin: 05/24/24 09:12 Dose: 400 mg Documented By: Admin: 05/24/24 06:15 Dose: 400 mg Documented By: Admin: 05/24/24 01:39 Dose: 400 mg Documented By: Admin: 05/23/24 21:06 Dose: 400 mg Documented By: Admin: 05/23/24 17:36 Dose: 400 mg Documented By: Admin: 05/23/24 14:52 Dose: Not Given Documented By: SAMANTHA Iopamidol (Iopamidol 30 Ml Vial) 30 ml INJ NOW ONE Stop: 05/23/24 12:22 Last Admin: 05/23/24 12:22 Dose: 10 ml Documented By: NINOSKA Lidocaine (Lidocaine 5% Patch) 1 each TOP DAILY [facility] Last Admin: 05/24/24 09:10 Dose: 1 each Documented By: Admin: 05/23/24 21:05 Dose: 1 each Documented By: EVELIA Lidocaine (Remove Lidocaine Patch) 1 each TOP BEDTIME [facility] Lorazepam (Lorazepam 0.5 Mg Tablet) 0.5 mg PO Q4HR PRN PRN Reason: Anxiety Last Admin: 05/23/24 03:25 Dose: 0.5 mg Documented By: Admin: 05/22/24 21:30 Dose: 0.5 mg Documented By: Admin: 05/22/24 08:33 Dose: 0.5 mg Documented By: Admin: 05/22/24 02:32 Dose: 0.5 mg Documented By: Admin: 05/21/24 21:33 Dose: 0.5 mg Documented By: Meperidine HCl (Meperidine 50 Mg/Ml Inj) 12.5 mg IV PACUNOW PRN PRN Reason: Mild pain or shivering Methocarbamol (Methocarbamol 500 Mg Tablet) 500 mg PO QID PRN PRN Reason: Muscle Spasm Metoclopramide HCl (Metoclopramide 10 Mg/2 Ml Inj) 5 mg IV NOW ONE Stop: 05/16/24 12:38 Last Admin: 05/16/24 13:05 Dose: 5 mg Documented By: AUTUMN Metoclopramide HCl (Metoclopramide 10 Mg/2 Ml Inj) 5 mg IV NOW ONE Stop: 05/16/24 16:56 Last Admin: 05/16/24 16:59 Dose: 5 mg Documented By: AUTUMN Metoclopramide HCl (Metoclopramide 10 Mg/2 Ml Inj) 5 mg IV Q6HR PRN PRN Reason: Nausea And Vomiting Last Admin: 05/19/24 06:33 Dose: 5 mg Documented By: Admin: 05/18/24 17:18 Dose: 5 mg Documented By: Admin: 05/18/24 11:15 Dose: 5 mg Documented By: Admin: 05/18/24 05:27 Dose: 5 mg Documented By: Admin: 05/17/24 23:18 Dose: 5 mg Documented By: Admin: 05/17/24 17:39 Dose: 5 mg Documented By: Admin: 05/17/24 11:54 Dose: 5 mg Documented By: Admin: 05/17/24 05:10 Dose: 5 mg Documented By: ELENA Metoclopramide HCl (Metoclopramide 10 Mg/2 Ml Inj) 5 mg IV Q6HR PRN PRN Reason: Nausea And Vomiting Morphine Sulfate (Morphine 4 Mg/Ml Inj) 3 mg IV Q2HR [facility] Naloxone HCl (Naloxone 0.4 Mg/Ml Vial) 0.2 mg IV Q2MIN PRN PRN Reason: Opiate Reversal Naloxone HCl (Naloxone 0.4 Mg/Ml Vial) 0.2 mg IV Q2MIN PRN PRN Reason: Opiate Reversal Ondansetron HCl (Ondansetron 4 Mg/2 Ml Inj) 4 mg IV NOW ONE Stop: 05/16/24 11:34 Last Admin: 05/16/24 11:44 Dose: 4 mg Documented By: AUTUMN Ondansetron HCl (Ondansetron 4 Mg/2 Ml Inj) 6 mg IV Q6HR [facility] Last Admin: 05/17/24 04:27 Dose: 6 mg Documented By: Admin: 05/16/24 23:42 Dose: 6 mg Documented By: Admin: 05/16/24 18:31 Dose: 6 mg Documented By: NEELIMA Ondansetron HCl (Ondansetron 4 Mg/2 Ml Inj) 6 mg IV Q6HR PRN PRN Reason: Nausea And Vomiting Last Admin: 05/19/24 08:16 Dose: 6 mg Documented By: Admin: 05/19/24 02:51 Dose: 6 mg Documented By: Admin: 05/18/24 14:43 Dose: 6 mg Documented By: Admin: 05/18/24 08:17 Dose: 6 mg Documented By: Admin: 05/18/24 02:15 Dose: 6 mg Documented By: Admin: 05/17/24 20:37 Dose: 6 mg Documented By: Admin: 05/17/24 14:35 Dose: 6 mg Documented By: Admin: 05/17/24 08:39 Dose: 6 mg Documented By: SANDRA Ondansetron HCl (Ondansetron 4 Mg Odt) 4 mg SL Q4HR PRN PRN Reason: Nausea Last Admin: 05/21/24 04:43 Dose: 4 mg Documented By: Admin: 05/20/24 20:46 Dose: 4 mg Documented By: (2) Ondansetron HCl (Ondansetron 4 Mg/2 Ml Inj) 4 mg IV Q6HR PRN PRN Reason: Nausea And Vomiting Last Admin: 05/19/24 17:10 Dose: 4 mg Documented By: Admin: 05/19/24 12:29 Dose: 4 mg Documented By: SHANNAN Ondansetron HCl (Ondansetron 4 Mg/2 Ml Inj) 4 mg IV Q4HR PRN PRN Reason: Nausea And Vomiting Ondansetron HCl (Ondansetron 4 Mg/2 Ml Inj) 4 mg IV NOW PRN PRN Reason: Nausea And Vomiting Ondansetron HCl (Ondansetron 4 Mg Odt) 4 mg PO Q4HR PRN PRN Reason: Nausea And Vomiting Oxycodone HCl (Oxycodone Ir 5 Mg Tablet) 5 mg PO PACUNOW PRN PRN Reason: Mild or moderate pain Oxycodone HCl (Oxycodone Ir 5 Mg Tablet) 5 mg PO Q3H PRN PRN Reason: Pain, Moderate (4-6) Oxycodone HCl (Oxycodone Ir 10 Mg Tablet) 10 mg PO Q3H PRN PRN Reason: Pain, Severe (7-10) Oxycodone/Acetaminophen (Oxycodone/Acetaminophen 5/325 Tablet) 1 tab PO Q4HR PRN PRN Reason: Pain, Moderate (4-6) Last Admin: 05/19/24 09:15 Dose: 1 tab Documented By: TRINIDAD Pantoprazole Sodium (Pantoprazole 40 Mg Vial) 40 mg IV NOW ONE Stop: 05/16/24 17:51 Last Admin: 05/16/24 18:31 Dose: 40 mg Documented By: NEELIMA Pantoprazole Sodium (Pantoprazole 40 Mg Vial) 40 mg IV DAILY [facility] Last Admin: 05/19/24 08:06 Dose: 40 mg Documented By: Admin: 05/18/24 09:05 Dose: 40 mg Documented By: Admin: 05/17/24 08:17 Dose: 40 mg Documented By: SANDRA Pantoprazole Sodium (Pantoprazole 40 Mg Vial) 40 mg IV BID [facility] Last Admin: 05/24/24 09:10 Dose: 40 mg Documented By: Admin: 05/23/24 21:05 Dose: 40 mg Documented By: Admin: 05/23/24 09:03 Dose: 40 mg Documented By: Admin: 05/22/24 21:30 Dose: 40 mg Documented By: Admin: 05/22/24 08:36 Dose: 40 mg Documented By: Admin: 05/21/24 21:33 Dose: 40 mg Documented By: Admin: 05/21/24 09:43 Dose: 40 mg Documented By: MAKEDA Polyethylene Glycol (Polyethylene Glycol 3350 17 Gm Powd.Pack) 17 gm PO DAILY PRN PRN Reason: constipation Last Admin: 05/21/24 06:50 Dose: 17 gm Documented By: LEI Potassium Chloride (Potassium Chloride 20 Meq Tab) 40 meq PO Q6H [facility] Stop: 05/19/24 15:31 Last Admin: 05/19/24 15:21 Dose: Not Given Documented By: Admin: 05/19/24 10:23 Dose: 40 meq Documented By: SHANNAN Potassium Chloride (Potassium Chloride 20 Meq Tab) 20 meq PO BIDWM [facility] Potassium Chloride (Potassium Chloride 20 Meq Tab) 40 meq PO BIDWM [facility] Last Admin: 05/21/24 09:40 Dose: Not Given Documented By: Admin: 05/20/24 18:00 Dose: Not Given Documented By: LDV Scopolamine (Scopolamine 1 Patch) 1 patch TOP NOW ONE Stop: 05/23/24 10:00 Last Admin: 05/23/24 10:53 Dose: 1 patch Documented By: SHIVA Sennosides (Sennosides 8.6 Mg Tablet) 17.2 mg PO BID PRN PRN Reason: constipation Last Admin: 05/21/24 06:50 Dose: 17.2 mg Documented By: LEI Sertraline HCl (Sertraline 50 Mg Tablet) 50 mg PO BEDTIME [facility] Last Admin: 05/23/24 21:06 Dose: 50 mg Documented By: Admin: 05/22/24 21:30 Dose: 50 mg Documented By: Admin: 05/21/24 21:33 Dose: 50 mg Documented By: Admin: 05/20/24 20:48 Dose: Not Given Documented By: MS(2) Trimethoprim/Sulfamethoxazole (Trimeth/Sulfa 160/800 (Ds) Tablet) 1 tab PO BID [facility] Last Admin: 05/19/24 21:35 Dose: Not Given Documented By: Admin: 05/19/24 11:00 Dose: Not Given Documented By: CJW Consultations Consultation #1: Spoke with Dr. Emery admitting hospitalist for patient's physician group who accepts the patient for inpatient admission. [id number] Vital Signs Vital signs: Vital Signs - 8 hr 05/16/24 11:22 05/16/24 11:22 05/16/24 11:26 Temperature 97.1 F L Pulse Rate 83 83 Respiratory Rate 16 17 Blood Pressure 140/91 H 140/91 H Pulse Oximetry 99 99 Oxygen Delivery Method Room Air 05/16/24 11:30 05/16/24 11:35 05/16/24 11:35 Temperature Pulse Rate 83 64 Respiratory Rate 16 Blood Pressure 130/86 Pulse Oximetry 100 100 Oxygen Delivery Method 05/16/24 12:00 05/16/24 12:01 05/16/24 12:01 Temperature Pulse Rate 98 H 109 H Respiratory Rate 18 Blood Pressure 147/96 H Pulse Oximetry 100 100 Oxygen Delivery Method 05/16/24 12:30 05/16/24 12:30 05/16/24 13:00 Temperature Pulse Rate 73 Respiratory Rate 18 Blood Pressure 132/92 H 130/93 H Pulse Oximetry 98 Oxygen Delivery Method 05/16/24 13:00 05/16/24 13:30 05/16/24 13:31 Temperature Pulse Rate 71 74 Respiratory Rate 18 18 Blood Pressure 129/90 Pulse Oximetry 97 94 Oxygen Delivery Method 05/16/24 13:31 05/16/24 14:00 05/16/24 14:00 Temperature Pulse Rate 73 64 Respiratory Rate 18 Blood Pressure 135/93 H Pulse Oximetry 99 99 Oxygen Delivery Method 05/16/24 14:30 05/16/24 14:30 05/16/24 15:00 Temperature Pulse Rate 71 Respiratory Rate Blood Pressure 136/86 140/96 H Pulse Oximetry 99 Oxygen Delivery Method 05/16/24 15:00 05/16/24 15:30 05/16/24 15:30 Temperature Pulse Rate 70 74 Respiratory Rate Blood Pressure 129/86 Pulse Oximetry 97 99 Oxygen Delivery Method <Cosmo Olmstead, DO - Last Filed: 05/26/24 17:55> Orders Ordered: Discontinued Medications Acetaminophen (Acetaminophen 325 Mg Tablet) 650 mg PO Q6H [facility] Last Admin: 05/24/24 13:26 Dose: 650 mg Documented By: Admin: 05/24/24 06:15 Dose: 650 mg Documented By: Admin: 05/24/24 01:39 Dose: 650 mg Documented By: Admin: 05/23/24 21:06 Dose: 650 mg Documented By: Admin: 05/23/24 14:52 Dose: Not Given Documented By: SAMANTHA Apixaban (Apixaban 5 Mg Tablet) 5 mg PO BID PAULA Bisacodyl (Bisacodyl 10 Mg Supp) 10 mg AR DAILY PRN PRN Reason: Constipation Bupivacaine HCl/Epinephrine Bitart (Bupivacaine 0.5% W/ Epi (Pf) 30 Ml Vial) 30 ml INJ NOW ONE Stop: 05/23/24 12:23 Last Admin: 05/23/24 12:23 Dose: 30 ml Documented By: PH Bupivacaine HCl/Epinephrine Bitart (Bupivacaine 0.5% W/ Epi (Pf) 10 Ml Vial) 10 ml INJ NOW ONE Stop: 05/23/24 12:25 Last Admin: 05/23/24 12:25 Dose: 10 ml Documented By: PH Diphenhydramine HCl (Diphenhydramine 50 Mg/Ml Vial) 25 mg IV Q6HR PRN PRN Reason: Itching Docusate Sodium (Docusate 100 Mg Capsule) 100 mg PO BID PRN PRN Reason: Constipation Enoxaparin Sodium (Enoxaparin 40 Mg/0.4 Ml Syringe) 40 mg SUBCUT DAILY [facility] Last Admin: 05/23/24 09:02 Dose: Not Given Documented By: Admin: 05/22/24 08:34 Dose: Not Given Documented By: Admin: 05/21/24 09:43 Dose: Not Given Documented By: Admin: 05/20/24 10:13 Dose: Not Given Documented By: Admin: 05/19/24 08:06 Dose: 40 mg Documented By: Admin: 05/18/24 09:06 Dose: Not Given Documented By: Admin: 05/17/24 08:17 Dose: 40 mg Documented By: SANDRA Enoxaparin Sodium (Enoxaparin 40 Mg/0.4 Ml Syringe) 40 mg SUBCUT DAILY [facility] Last Admin: 05/24/24 09:09 Dose: Not Given Documented By: JESSENIA Famotidine (Famotidine 20 Mg/2 Ml Vial) 20 mg IV NOW [facility] Last Admin: 05/16/24 11:44 Dose: 20 mg Documented By: AUTUMN Fentanyl (Fentanyl 100 Mcg/2 Ml Inj) 0 mcg IV Q5M PRN PRN Reason: Pain, Moderate (4-6) Hydromorphone HCl (Hydromorphone 0.5 Mg Inj) 0.2 mg IV NOW ONE Stop: 05/16/24 12:27 Last Admin: 05/16/24 13:04 Dose: 0.2 mg Documented By: AUTUMN Hydromorphone HCl (Hydromorphone 0.5 Mg Inj) 0.2 mg IV Q1HR PRN PRN Reason: Pain, Moderate (4-6) Last Admin: 05/16/24 16:53 Dose: 0.2 mg Documented By: Admin: 05/16/24 15:48 Dose: 0.2 mg Documented By: AUTUMN Hydromorphone HCl (Hydromorphone 0.5 Mg Inj) 0.5 mg IV Q2H PRN PRN Reason: Pain, Moderate (4-6) Hydromorphone HCl (Hydromorphone 1 Mg Inj) 1 mg IV Q2H PRN PRN Reason: Pain, Severe (7-10) Last Admin: 05/19/24 06:32 Dose: 1 mg Documented By: Admin: 05/19/24 02:50 Dose: 1 mg Documented By: Admin: 05/18/24 23:31 Dose: 1 mg Documented By: Admin: 05/18/24 20:49 Dose: 1 mg Documented By: Admin: 05/18/24 16:51 Dose: 1 mg Documented By: Admin: 05/18/24 14:43 Dose: 1 mg Documented By: Admin: 05/18/24 11:19 Dose: 1 mg Documented By: Admin: 05/18/24 08:18 Dose: 1 mg Documented By: Admin: 05/18/24 06:13 Dose: 1 mg Documented By: Admin: 05/18/24 04:23 Dose: 1 mg Documented By: Admin: 05/18/24 02:15 Dose: 1 mg Documented By: Admin: 05/17/24 23:18 Dose: 1 mg Documented By: Admin: 05/17/24 19:56 Dose: 1 mg Documented By: Admin: 05/17/24 16:12 Dose: 1 mg Documented By: Admin: 05/17/24 14:35 Dose: 1 mg Documented By: Admin: 05/17/24 11:54 Dose: 1 mg Documented By: Admin: 05/17/24 08:17 Dose: 1 mg Documented By: Admin: 05/17/24 06:38 Dose: 1 mg Documented By: Admin: 05/17/24 04:28 Dose: 1 mg Documented By: Admin: 05/17/24 02:41 Dose: 1 mg Documented By: Admin: 05/17/24 00:35 Dose: 1 mg Documented By: Admin: 05/16/24 21:06 Dose: 1 mg Documented By: Admin: 05/16/24 18:31 Dose: 1 mg Documented By: TLS Hydromorphone HCl (Hydromorphone 0.5 Mg Inj) 0.2 mg IV Q1HR PRN PRN Reason: Pain, Moderate (4-6) Last Admin: 05/19/24 17:10 Dose: 0.2 mg Documented By: Admin: 05/19/24 15:19 Dose: 0.2 mg Documented By: Admin: 05/19/24 12:27 Dose: 0.2 mg Documented By: SHANNAN Hydromorphone HCl (Hydromorphone 0.5 Mg Inj) 0.5 mg IV Q2H PRN PRN Reason: Pain, Severe (7-10) Last Admin: 05/19/24 20:59 Dose: 0.5 mg Documented By: SIERRA Hydromorphone HCl (Hydromorphone 1 Mg Inj) 1 mg IV Q2H PRN PRN Reason: Pain, Moderate (4-6) Last Admin: 05/20/24 03:40 Dose: 1 mg Documented By: Admin: 05/20/24 00:43 Dose: 1 mg Documented By: RUSS Hydromorphone HCl (Hydromorphone 2 Mg Tablet) 2 mg PO Q6HR PRN PRN Reason: Pain, Severe (7-10) Last Admin: 05/23/24 03:25 Dose: 2 mg Documented By: Admin: 05/22/24 21:30 Dose: 2 mg Documented By: Admin: 05/22/24 02:32 Dose: 2 mg Documented By: Admin: 05/21/24 04:43 Dose: 2 mg Documented By: LEI Hydromorphone HCl (Hydromorphone 2 Mg Tablet) 1 mg PO Q3H PRN PRN Reason: Pain, Moderate (4-6) Last Admin: 05/22/24 08:32 Dose: 1 mg Documented By: Admin: 05/21/24 21:34 Dose: 1 mg Documented By: Hydromorphone HCl (Hydromorphone 1 Mg Inj) 0 mg IV Q5MIN PRN PRN Reason: Pain, Moderate (4-6) Hydroxyzine HCl (Hydroxyzine 50 Mg/Ml Inj) 25 mg IM NOW PRN PRN Reason: Pain, Mild (1-3) Sodium Chloride (Normal Saline 0.9%) 1,000 mls @ 1,000 mls/hr IV BOLUS ONE Stop: 05/16/24 12:32 Last Infusion: 05/16/24 12:15 Dose: Infused Documented By: Admin: 05/16/24 11:44 Dose: 1,000 mls/hr Documented By: AUTUMN Dextrose (Dextrose 5% Water) 1,000 mls @ 70 mls/hr IV CONT PAULA Last Infusion: 05/16/24 20:19 Dose: 0 mls/hr Documented By: Infusion: 05/16/24 17:52 Dose: 70 mls/hr Documented By: Infusion: 05/16/24 17:40 Dose: 0 mls/hr Documented By: Admin: 05/16/24 13:10 Dose: 70 mls/hr Documented By: AUTUMN Sodium Chloride (Normal Saline 0.9%) 1,000 mls @ 125 mls/hr IV CONT PAULA Last Admin: 05/19/24 02:51 Dose: 150 mls/hr Documented By: Infusion: 05/19/24 01:40 Dose: Infused Documented By: Admin: 05/18/24 18:59 Dose: 150 mls/hr Documented By: Infusion: 05/18/24 17:56 Dose: Infused Documented By: Admin: 05/18/24 11:15 Dose: 150 mls/hr Documented By: Infusion: 05/18/24 10:32 Dose: Infused Documented By: Admin: 05/18/24 03:51 Dose: 150 mls/hr Documented By: Infusion: 05/18/24 03:51 Dose: Infused Documented By: Admin: 05/17/24 21:20 Dose: 150 mls/hr Documented By: Infusion: 05/17/24 21:18 Dose: Infused Documented By: Infusion: 05/17/24 16:12 Dose: 150 mls/hr Documented By: Admin: 05/17/24 14:38 Dose: 150 mls/hr Documented By: Infusion: 05/17/24 14:38 Dose: Infused Documented By: Admin: 05/17/24 06:21 Dose: 100 mls/hr Documented By: Infusion: 05/17/24 06:21 Dose: Infused Documented By: Admin: 05/16/24 20:15 Dose: 75 mls/hr Documented By: MM Ceftriaxone Sodium 2,000 mg/ (Sodium Chloride) 100 mls @ 200 mls/hr IV Q24H [facility] Last Admin: 05/19/24 08:06 Dose: 200 mls/hr Documented By: Infusion: 05/18/24 09:40 Dose: Infused Documented By: Admin: 05/18/24 09:06 Dose: 200 mls/hr Documented By: Infusion: 05/17/24 09:10 Dose: Infused Documented By: Admin: 05/17/24 08:38 Dose: 200 mls/hr Documented By: SANDRA POTASSIUM CHLORIDE IN WATER (Potassium Cl 10 Meq/100 Ml Michaela) 10 meq in 100 mls @ 100 mls/hr IV Q1H PAULA Stop: 05/17/24 11:44 Last Admin: 05/17/24 13:17 Dose: 100 mls/hr Documented By: Infusion: 05/17/24 13:04 Dose: Infused Documented By: Admin: 05/17/24 12:04 Dose: 100 mls/hr Documented By: SANDRA Ceftriaxone Sodium 2,000 mg/ (Sodium Chloride) 100 mls @ 200 mls/hr IV Q24H [facility] Last Admin: 05/21/24 12:15 Dose: 200 mls/hr Documented By: Infusion: 05/20/24 15:58 Dose: Infused Documented By: Admin: 05/20/24 14:17 Dose: 200 mls/hr Documented By: Infusion: 05/19/24 15:18 Dose: Infused Documented By: Admin: 05/19/24 12:27 Dose: 200 mls/hr Documented By: SHANNAN Sodium Chloride (Normal Saline 0.9%) 1,000 mls @ 125 mls/hr IV CONT PAULA Last Infusion: 05/23/24 12:17 Dose: Infused Documented By: Admin: 05/23/24 07:21 Dose: 125 mls/hr Documented By: Infusion: 05/23/24 06:51 Dose: Infused Documented By: Admin: 05/22/24 22:51 Dose: 125 mls/hr Documented By: Infusion: 05/22/24 22:51 Dose: Infused Documented By: Admin: 05/22/24 14:53 Dose: 125 mls/hr Documented By: Infusion: 05/22/24 10:50 Dose: Infused Documented By: Admin: 05/22/24 02:50 Dose: 125 mls/hr Documented By: Infusion: 05/22/24 02:12 Dose: Infused Documented By: Admin: 05/21/24 18:12 Dose: 125 mls/hr Documented By: Infusion: 05/21/24 17:44 Dose: Infused Documented By: Admin: 05/21/24 09:44 Dose: 125 mls/hr Documented By: Infusion: 05/20/24 15:58 Dose: Infused Documented By: Admin: 05/19/24 21:35 Dose: 125 mls/hr Documented By: SIERRA Sodium Chloride (Normal Saline 0.9%) 1,000 mls @ 125 mls/hr IV CONT PAULA POTASSIUM CHLORIDE IN WATER (Potassium Cl 10 Meq/100 Ml Michaela) 10 meq in 100 mls @ 100 mls/hr IV Q1H [facility] Stop: 05/21/24 15:14 Last Admin: 05/21/24 15:38 Dose: 100 mls/hr Documented By: Infusion: 05/21/24 15:37 Dose: Infused Documented By: Admin: 05/21/24 14:37 Dose: 100 mls/hr Documented By: Infusion: 05/21/24 14:23 Dose: Infused Documented By: Admin: 05/21/24 13:23 Dose: 100 mls/hr Documented By: Infusion: 05/21/24 13:14 Dose: Infused Documented By: Admin: 05/21/24 12:14 Dose: 100 mls/hr Documented By: Infusion: 05/21/24 12:01 Dose: Infused Documented By: Admin: 05/21/24 11:01 Dose: 100 mls/hr Documented By: Infusion: 05/21/24 10:43 Dose: Infused Documented By: Admin: 05/21/24 09:43 Dose: 100 mls/hr Documented By: MAKEDA POTASSIUM CHLORIDE IN WATER (Potassium Cl 10 Meq/100 Ml Michaela) 10 meq in 100 mls @ 100 mls/hr IV Q1H PAULA Stop: 05/22/24 10:14 Last Admin: 05/22/24 09:52 Dose: 100 mls/hr Documented By: Infusion: 05/22/24 09:35 Dose: Infused Documented By: Admin: 05/22/24 08:35 Dose: 100 mls/hr Documented By: SAMANTHA Cefotetan Disodium 2 gm/ (Sodium Chloride) 100 mls @ 200 mls/hr IV NOW ONE Stop: 05/23/24 11:38 Last Admin: 05/23/24 14:54 Dose: Not Given Documented By: SAMANTHA Lactated Ringer's (Lactated Ringers) 1,000 mls @ 42 mls/hr IV CONT PAULA Last Admin: 05/23/24 12:16 Dose: 42 mls/hr Documented By: OJ Acetaminophen (Ofirmev) 1,000 mg in 100 mls @ 400 mls/hr IV NOW ONE Stop: 05/23/24 12:39 Last Infusion: 05/23/24 11:59 Dose: Infused Documented By: Admin: 05/23/24 11:57 Dose: 400 mls/hr Documented By: OJ Cefazolin Sodium/Dextrose (Ancef) 100 mls @ 200 mls/hr IV NOW ONE Stop: 05/23/24 12:56 Last Infusion: 05/23/24 12:01 Dose: Infused Documented By: Admin: 05/23/24 11:53 Dose: 200 mls/hr Documented By: OJ Ibuprofen (Ibuprofen 400 Mg Tablet) 400 mg PO Q4H PAULA Last Admin: 05/24/24 13:45 Dose: 400 mg Documented By: Admin: 05/24/24 09:12 Dose: 400 mg Documented By: Admin: 05/24/24 06:15 Dose: 400 mg Documented By: Admin: 05/24/24 01:39 Dose: 400 mg Documented By: Admin: 05/23/24 21:06 Dose: 400 mg Documented By: Admin: 05/23/24 17:36 Dose: 400 mg Documented By: Admin: 05/23/24 14:52 Dose: Not Given Documented By: SAMANTHA Iopamidol (Iopamidol 30 Ml Vial) 30 ml INJ NOW ONE Stop: 05/23/24 12:22 Last Admin: 05/23/24 12:22 Dose: 10 ml Documented By: NINOSKA Lidocaine (Lidocaine 5% Patch) 1 each TOP DAILY [facility]ULA Last Admin: 05/24/24 09:10 Dose: 1 each Documented By: Admin: 05/23/24 21:05 Dose: 1 each Documented By: EVELIA Lidocaine (Remove Lidocaine Patch) 1 each TOP BEDTIME PAULA Lorazepam (Lorazepam 0.5 Mg Tablet) 0.5 mg PO Q4HR PRN PRN Reason: Anxiety Last Admin: 05/23/24 03:25 Dose: 0.5 mg Documented By: Admin: 05/22/24 21:30 Dose: 0.5 mg Documented By: Admin: 05/22/24 08:33 Dose: 0.5 mg Documented By: Admin: 05/22/24 02:32 Dose: 0.5 mg Documented By: Admin: 05/21/24 21:33 Dose: 0.5 mg Documented By: Meperidine HCl (Meperidine 50 Mg/Ml Inj) 12.5 mg IV PACUNOW PRN PRN Reason: Mild pain or shivering Methocarbamol (Methocarbamol 500 Mg Tablet) 500 mg PO QID PRN PRN Reason: Muscle Spasm Metoclopramide HCl (Metoclopramide 10 Mg/2 Ml Inj) 5 mg IV NOW ONE Stop: 05/16/24 12:38 Last Admin: 05/16/24 13:05 Dose: 5 mg Documented By: AUTUMN Metoclopramide HCl (Metoclopramide 10 Mg/2 Ml Inj) 5 mg IV NOW ONE Stop: 05/16/24 16:56 Last Admin: 05/16/24 16:59 Dose: 5 mg Documented By: AUTUMN Metoclopramide HCl (Metoclopramide 10 Mg/2 Ml Inj) 5 mg IV Q6HR PRN PRN Reason: Nausea And Vomiting Last Admin: 05/19/24 06:33 Dose: 5 mg Documented By: Admin: 05/18/24 17:18 Dose: 5 mg Documented By: Admin: 05/18/24 11:15 Dose: 5 mg Documented By: Admin: 05/18/24 05:27 Dose: 5 mg Documented By: Admin: 05/17/24 23:18 Dose: 5 mg Documented By: Admin: 05/17/24 17:39 Dose: 5 mg Documented By: Admin: 05/17/24 11:54 Dose: 5 mg Documented By: Admin: 05/17/24 05:10 Dose: 5 mg Documented By: ELENA Metoclopramide HCl (Metoclopramide 10 Mg/2 Ml Inj) 5 mg IV Q6HR PRN PRN Reason: Nausea And Vomiting Morphine Sulfate (Morphine 4 Mg/Ml Inj) 3 mg IV Q2HR PAULA Naloxone HCl (Naloxone 0.4 Mg/Ml Vial) 0.2 mg IV Q2MIN PRN PRN Reason: Opiate Reversal Naloxone HCl (Naloxone 0.4 Mg/Ml Vial) 0.2 mg IV Q2MIN PRN PRN Reason: Opiate Reversal Ondansetron HCl (Ondansetron 4 Mg/2 Ml Inj) 4 mg IV NOW ONE Stop: 05/16/24 11:34 Last Admin: 05/16/24 11:44 Dose: 4 mg Documented By: AUTUMN Ondansetron HCl (Ondansetron 4 Mg/2 Ml Inj) 6 mg IV Q6HR PAULA Last Admin: 05/17/24 04:27 Dose: 6 mg Documented By: Admin: 05/16/24 23:42 Dose: 6 mg Documented By: Admin: 05/16/24 18:31 Dose: 6 mg Documented By: NEELIMA Ondansetron HCl (Ondansetron 4 Mg/2 Ml Inj) 6 mg IV Q6HR PRN PRN Reason: Nausea And Vomiting Last Admin: 05/19/24 08:16 Dose: 6 mg Documented By: Admin: 05/19/24 02:51 Dose: 6 mg Documented By: Admin: 05/18/24 14:43 Dose: 6 mg Documented By: Admin: 05/18/24 08:17 Dose: 6 mg Documented By: Admin: 05/18/24 02:15 Dose: 6 mg Documented By: Admin: 05/17/24 20:37 Dose: 6 mg Documented By: Admin: 05/17/24 14:35 Dose: 6 mg Documented By: Admin: 05/17/24 08:39 Dose: 6 mg Documented By: SANDRA Ondansetron HCl (Ondansetron 4 Mg Odt) 4 mg SL Q4HR PRN PRN Reason: Nausea Last Admin: 05/21/24 04:43 Dose: 4 mg Documented By: Admin: 05/20/24 20:46 Dose: 4 mg Documented By: (2) Ondansetron HCl (Ondansetron 4 Mg/2 Ml Inj) 4 mg IV Q6HR PRN PRN Reason: Nausea And Vomiting Last Admin: 05/19/24 17:10 Dose: 4 mg Documented By: Admin: 05/19/24 12:29 Dose: 4 mg Documented By: SHANNAN Ondansetron HCl (Ondansetron 4 Mg/2 Ml Inj) 4 mg IV Q4HR PRN PRN Reason: Nausea And Vomiting Ondansetron HCl (Ondansetron 4 Mg/2 Ml Inj) 4 mg IV NOW PRN PRN Reason: Nausea And Vomiting Ondansetron HCl (Ondansetron 4 Mg Odt) 4 mg PO Q4HR PRN PRN Reason: Nausea And Vomiting Oxycodone HCl (Oxycodone Ir 5 Mg Tablet) 5 mg PO PACUNOW PRN PRN Reason: Mild or moderate pain Oxycodone HCl (Oxycodone Ir 5 Mg Tablet) 5 mg PO Q3H PRN PRN Reason: Pain, Moderate (4-6) Oxycodone HCl (Oxycodone Ir 10 Mg Tablet) 10 mg PO Q3H PRN PRN Reason: Pain, Severe (7-10) Oxycodone/Acetaminophen (Oxycodone/Acetaminophen 5/325 Tablet) 1 tab PO Q4HR PRN PRN Reason: Pain, Moderate (4-6) Last Admin: 05/19/24 09:15 Dose: 1 tab Documented By: TRINIDAD Pantoprazole Sodium (Pantoprazole 40 Mg Vial) 40 mg IV NOW ONE Stop: 05/16/24 17:51 Last Admin: 05/16/24 18:31 Dose: 40 mg Documented By: NEELIMA Pantoprazole Sodium (Pantoprazole 40 Mg Vial) 40 mg IV DAILY [facility] Last Admin: 05/19/24 08:06 Dose: 40 mg Documented By: Admin: 05/18/24 09:05 Dose: 40 mg Documented By: Admin: 05/17/24 08:17 Dose: 40 mg Documented By: SANDRA Pantoprazole Sodium (Pantoprazole 40 Mg Vial) 40 mg IV BID [facility] Last Admin: 05/24/24 09:10 Dose: 40 mg Documented By: Admin: 05/23/24 21:05 Dose: 40 mg Documented By: Admin: 05/23/24 09:03 Dose: 40 mg Documented By: Admin: 05/22/24 21:30 Dose: 40 mg Documented By: Admin: 05/22/24 08:36 Dose: 40 mg Documented By: Admin: 05/21/24 21:33 Dose: 40 mg Documented By: Admin: 05/21/24 09:43 Dose: 40 mg Documented By: MAKEDA Polyethylene Glycol (Polyethylene Glycol 3350 17 Gm Powd.Pack) 17 gm PO DAILY PRN PRN Reason: constipation Last Admin: 05/21/24 06:50 Dose: 17 gm Documented By: LEI Potassium Chloride (Potassium Chloride 20 Meq Tab) 40 meq PO Q6H [facility] Stop: 05/19/24 15:31 Last Admin: 05/19/24 15:21 Dose: Not Given Documented By: Admin: 05/19/24 10:23 Dose: 40 meq Documented By: SHANNAN Potassium Chloride (Potassium Chloride 20 Meq Tab) 20 meq PO BIDWM [facility] Potassium Chloride (Potassium Chloride 20 Meq Tab) 40 meq PO BIDWM [facility] Last Admin: 05/21/24 09:40 Dose: Not Given Documented By: Admin: 05/20/24 18:00 Dose: Not Given Documented By: LDV Scopolamine (Scopolamine 1 Patch) 1 patch TOP NOW ONE Stop: 05/23/24 10:00 Last Admin: 05/23/24 10:53 Dose: 1 patch Documented By: SHIVA Sennosides (Sennosides 8.6 Mg Tablet) 17.2 mg PO BID PRN PRN Reason: constipation Last Admin: 05/21/24 06:50 Dose: 17.2 mg Documented By: LEI Sertraline HCl (Sertraline 50 Mg Tablet) 50 mg PO BEDTIME [facility] Last Admin: 05/23/24 21:06 Dose: 50 mg Documented By: Admin: 05/22/24 21:30 Dose: 50 mg Documented By: Admin: 05/21/24 21:33 Dose: 50 mg Documented By: Admin: 05/20/24 20:48 Dose: Not Given Documented By: MS(2) Trimethoprim/Sulfamethoxazole (Trimeth/Sulfa 160/800 (Ds) Tablet) 1 tab PO BID [facility] Last Admin: 05/19/24 21:35 Dose: Not Given Documented By: Admin: 05/19/24 11:00 Dose: Not Given Documented By: SHANNAN Vital Signs Vital signs: Vital Signs - 8 hr 05/16/24 11:22 05/16/24 11:22 05/16/24 11:26 Temperature 97.1 F L Pulse Rate 83 83 Respiratory Rate 16 17 Blood Pressure 140/91 H 140/91 H Pulse Oximetry 99 99 Oxygen Delivery Method Room Air 05/16/24 11:30 05/16/24 11:35 05/16/24 11:35 Temperature Pulse Rate 83 64 Respiratory Rate 16 Blood Pressure 130/86 Pulse Oximetry 100 100 Oxygen Delivery Method 05/16/24 12:00 05/16/24 12:01 05/16/24 12:01 Temperature Pulse Rate 98 H 109 H Respiratory Rate 18 Blood Pressure 147/96 H Pulse Oximetry 100 100 Oxygen Delivery Method 05/16/24 12:30 05/16/24 12:30 05/16/24 13:00 Temperature Pulse Rate 73 Respiratory Rate 18 Blood Pressure 132/92 H 130/93 H Pulse Oximetry 98 Oxygen Delivery Method 05/16/24 13:00 05/16/24 13:30 05/16/24 13:31 Temperature Pulse Rate 71 74 Respiratory Rate 18 18 Blood Pressure 129/90 Pulse Oximetry 97 94 Oxygen Delivery Method 05/16/24 13:31 05/16/24 14:00 05/16/24 14:00 Temperature Pulse Rate 73 64 Respiratory Rate 18 Blood Pressure 135/93 H Pulse Oximetry 99 99 Oxygen Delivery Method 05/16/24 14:30 05/16/24 14:30 05/16/24 15:00 Temperature Pulse Rate 71 Respiratory Rate Blood Pressure 136/86 140/96 H Pulse Oximetry 99 Oxygen Delivery Method 05/16/24 15:00 05/16/24 15:30 05/16/24 15:30 Temperature Pulse Rate 70 74 Respiratory Rate Blood Pressure 129/86 Pulse Oximetry 97 99 Oxygen Delivery Method MDM - Nausea/Vomiting/Diarrhea <Vidya Delacruz PA-C - Last Filed: 05/16/24 18:41> Differential Diagnosis Differential diagnosis: Likely dehydration and other (Pancreatitis with peripancreatic phlegmon, hypernatremia) Medical Records Attestation: I reviewed the patient's medical records. Lab Data Attestation: I reviewed the patient's lab results. 05/24/24 05:10 05/24/24 05:10 Labs: Lab Results 05/16/24 05/16/24 Range/Units 11:30 11:51 WBC 17.7 H (4.5-11.0) X10^3/uL RBC 4.26 (4.0-5.2) X10^6/uL Hgb 15.4 (12.0-16.0) g/dL Hct 45.1 (36-46) % MCV 105.9 H (80-100) fL MCH 36.2 H (26-34) PG MCHC 34.2 (30-36) % RDW 17.2 H (11.6-14.8) % Plt Count 394 (150-400) X10^3/uL Neut % (Auto) 93.9 H (50-75) % Lymph % (Auto) 2.7 L (25-40) % [place] % (Auto) 3.0 (3-14) % Eos % (Auto) 0.0 L (2-4) % Baso % (Auto) 0.4 (0-2) % Neut # (Auto) 73869 H (7860-7251) /uL Lymph # (Auto) 500 L (5733-6215) /uL [place] # (Auto) 500 (0-900) /uL Eos # (Auto) 0 (0-450) /uL Baso # (Auto) 100 (0-100) /uL Sodium 161 H* (137-145) mmol/L Potassium 3.7 (3.4-5.1) mmol/L Chloride 102 (98-107) mmol/L Carbon Dioxide 29 (22-32) mmol/L BUN 6 L (7-17) mg/dL Creatinine 0.40 L (0.52-1.04) mg/dL Estimated GFR > 60 (>60) mL/min BUN/Creatinine Ratio 15.0 (6-22) Glucose 149 H (70-100) mg/dL Calcium 9.4 (8.4-10.2) mg/dL Total Bilirubin 1.3 (0.2-1.3) mg/dL AST 82 H (14-36) IU/L ALT 76 H (<35) IU/L Alkaline Phosphatase 99 (38-126) U/L Total Protein 7.3 (6.3-8.2) g/dL Albumin 4.2 (3.5-5.0) g/dL Globulin 3.1 (1.7-4.1) g/dL Albumin/Globulin Ratio 1.4 (1.0-2.8) Lipase 1380 H (23-300) U/L HCG, Quant < 2.39 mIU/mL SARS-CoV-2 (PCR) Negative (Negative) Influenza A (RT-PCR) Flu a negative (NEGATIVE) Influenza B (RT-PCR) Flu b negative (NEGATIVE) RSV (PCR) Negative (Negative) Imaging Data CT scan - abdomen/pelvis: My Impression: Agree with Radiology interpretation Radiologist's Impression: [address] [address] [address] Scan Report Signed Patient: Jaclyn Urbina MR#: [id number] : 1995 Acct:[id number] Age/Sex: 29 / F Date of Service: 05/16/24 Loc: ED Accession Number: [id number] Procedure: CT abdomen pelvis w con Ordering Provider: Vidya Delacruz PA-C PROCEDURE: CT ABDOMEN PELVIS W CON INDICATIONS: elevated lipase, abd pain N/V TECHNIQUE: After the administration of intravenous contrast, axial sections acquired from the lung bases to the pubic symphysis. Coronal and sagittal reformats were performed. For radiation dose reduction, the following was used: automated exposure control, adjustment of mA and/or kV according to patient size. COMPARISON: None. FINDINGS: Lower thorax: The lung bases are clear. Heart size normal. No hiatal hernia. Liver: The liver is diffusely decreased in attenuation without focal mass lesion. Additional focal fatty infiltration noted adjacent to the falciform ligament as well Biliary system: No calcified cholelithiasis or pericholecystic inflammation. No intra or extrahepatic bile duct dilatation. Pancreas: Pancreatic edema and hypoattenuation noted in the body and tail the pancreas with surrounding peripancreatic edema and fluid. No evidence of organized pseudocyst. Spleen: Normal in size and density. Adrenals: Normal morphology and density. Reproductive system: Unremarkable as visualized. Urinary system: Normal renal size and attenuation. Right renal scarring No renal calculi, hydronephrosis, or solid mass present. Urinary bladder unremarkable. Gastrointestinal system: The bowel is unremarkable without evidence of bowel obstruction or inflammation. The stomach appears unremarkable. Appendix: No findings to suggest acute appendicitis. Peritoneal spaces: No mesenteric or retroperitoneal adenopathy. No free air. No free fluid. Vasculature: The IVC, aorta and iliac vasculature are unremarkable. Abdominal wall: Abdominal wall intact without evidence of ventral or inguinal hernias. Musculoskeletal: Normal bone mineralization. No acute fractures. IMPRESSION: Acute pancreatitis with peripancreatic phlegmon and fluid. No evidence of organized abscess or pseudocyst. Hepatic fatty infiltration Approved by: Jone Steinberg M.D. on 05/16/2024 at 13:34 MDM Narrative Medical decision making narrative: This is an ill-appearing 29-year-old woman presenting with concern for 10 episodes of vomiting this morning with 6/10 upper abdominal pain beginning this morning also with headache and generalized malaise yesterday. Reduced p.o. (food) intake chronically and daily alcohol use of 2 drinks per day chronically. Exam was notable for upper abdominal tenderness. Patient did have additional episodes of vomiting while in the emergency department that was poorly relieved with Zofran, she received Reglan as well as hydromorphone for pain with moderate improvement of symptoms. Labs showed her to be hemoconcentrated, dehydrated as well as hypernatremic to 161. In addition her lipase was elevated over 1300 consistent with pancreatitis. Negative . In consultation with attending physician Dr. Olmstead CT abdomen pelvis with contrast ordered for further evaluation of her pancreas, also initiated D5 in water to begin treatment of her hypernatremia. Hospitalist team consult requested and ultimately the patient was accepted for inpatient admission by Dr. Emery. UA pending at time of transfer to hospitalist. <Cosmo Olmstead, DO - Last Filed: 05/26/24 17:55> Lab Data Labs: Lab Results 05/16/24 05/16/24 Range/Units 11:30 11:51 WBC 17.7 H (4.5-11.0) X10^3/uL RBC 4.26 (4.0-5.2) X10^6/uL Hgb 15.4 (12.0-16.0) g/dL Hct 45.1 (36-46) % MCV 105.9 H (80-100) fL MCH 36.2 H (26-34) PG MCHC 34.2 (30-36) % RDW 17.2 H (11.6-14.8) % Plt Count 394 (150-400) X10^3/uL Neut % (Auto) 93.9 H (50-75) % Lymph % (Auto) 2.7 L (25-40) % [place] % (Auto) 3.0 (3-14) % Eos % (Auto) 0.0 L (2-4) % Baso % (Auto) 0.4 (0-2) % Neut # (Auto) 77675 H (7697-5104) /uL Lymph # (Auto) 500 L (5901-1826) /uL [place] # (Auto) 500 (0-900) /uL Eos # (Auto) 0 (0-450) /uL Baso # (Auto) 100 (0-100) /uL Sodium 161 H* (137-145) mmol/L Potassium 3.7 (3.4-5.1) mmol/L Chloride 102 (98-107) mmol/L Carbon Dioxide 29 (22-32) mmol/L BUN 6 L (7-17) mg/dL Creatinine 0.40 L (0.52-1.04) mg/dL Estimated GFR > 60 (>60) mL/min BUN/Creatinine Ratio 15.0 (6-22) Glucose 149 H (70-100) mg/dL Calcium 9.4 (8.4-10.2) mg/dL Total Bilirubin 1.3 (0.2-1.3) mg/dL AST 82 H (14-36) IU/L ALT 76 H (<35) IU/L Alkaline Phosphatase 99 (38-126) U/L Total Protein 7.3 (6.3-8.2) g/dL Albumin 4.2 (3.5-5.0) g/dL Globulin 3.1 (1.7-4.1) g/dL Albumin/Globulin Ratio 1.4 (1.0-2.8) Lipase 1380 H (23-300) U/L HCG, Quant < 2.39 mIU/mL SARS-CoV-2 (PCR) Negative (Negative) Influenza A (RT-PCR) Flu a negative (NEGATIVE) Influenza B (RT-PCR) Flu b negative (NEGATIVE) RSV (PCR) Negative (Negative) Discharge Plan Departure Patient Disposition: Admitted As Inpatient Clinical Impression: Hypernatremia Pancreatitis Qualifiers: Chronicity: acute Pancreatitis type: unspecified pancreatitis type Acute pancreatitis complication: unspecified Qualified Code(s): K85.90 - Acute pancreatitis without necrosis or infection, unspecified Admit Date/Time: 05/16/24 15:58 Admit Provider: Lisandro Emery ED Sign-out <Cosmo Olmstead DO - Last Filed: 05/26/24 17:55> Cosign ED Attending Cosignature Attestation: Dr Olmstead Co-Sign Statement: I was available for consultation during this patient's emergency department visit. This chart is signed by myself for administrative purposes only. I did not have direct contact with this patient during this visit. They were seen independently by the APC.
[2024-05-16 11:41] LABS: Add Manual Diff / Slide Review NO; Basophils Absolute Auto 100 /uL (0-100); Basophils Percent Auto 0.4 % (0-2); Eosinophils Absolute Auto 0 /uL (0-450); Hematocrit 45.1 % (36-46); Hemoglobin 15.4 g/dL (12.0-16.0); Lymphocytes Absolute Auto 500 /uL (1100-4500); Lymphocytes Percent Auto 2.7 % (25-40); Mean Corpuscular HGB Conc 34.2 % (30-36); Mean Corpuscular Hemoglobin 36.2 PG (26-34); Mean Corpuscular Volume 105.9 fL (80-100); Monocytes Absolute Auto 500 /uL (0-900); Neutrophils Absolute Auto 16600 /uL (1500-7000); Neutrophils Percent Auto 93.9 % (50-75); Platelet Count 394 X10^3/uL (150-400); Red Blood Cell Count 4.26 X10^6/uL (4.0-5.2); Red Cell Distribution Width 17.2 % (11.6-14.8); White Blood Cell Count 17.7 X10^3/uL (4.5-11.0)
[2024-05-16] MEDS: ONDANSETRON 4 MG/2 ML INJ IV (11:44)
[2024-05-16] MEDS: FAMOTIDINE 20 MG/2 ML VIAL IV (11:44)
[2024-05-16] MEDS: SODIUM CHLORIDE 0.9% 1,000 ML 1000 ML IV (11:44)
[2024-05-16 12:00] LABS: Alanine Aminotransferase 76 IU/L (<35); Albumin 4.2 g/dL (3.5-5.0); Albumin Globulin Ratio 1.4 (1.0-2.8); Alkaline Phosphatase 99 U/L (38-126); Aspartate Aminotransferase 82 IU/L (14-36); Bilirubin Total 1.3 mg/dL (0.2-1.3); Blood Urea Nitrogen 6 mg/dL (7-17); Calcium 9.4 mg/dL (8.4-10.2); Carbon Dioxide 29 mmol/L (22-32); Chloride 102 mmol/L (98-107); Estimated Glomerular Filt Rate > 60 mL/min (>60); Globulin 3.1 g/dL (1.7-4.1); Glucose 149 mg/dL (70-100); Lipase 1380 U/L (23-300); Potassium 3.7 mmol/L (3.4-5.1); Total Protein 7.3 g/dL (6.3-8.2)
[2024-05-16 12:08] LABS: HEMOLYSIS 72 (0-50)
[2024-05-16 12:10] LABS: Sodium 161 mmol/L (137-145)
--- NOTE | 2024-05-16 12:16 | DI.CT.S_ITS ---
PROCEDURE: CT ABDOMEN PELVIS W CON INDICATIONS: elevated lipase, abd pain N/V TECHNIQUE: After the administration of intravenous contrast, axial sections acquired from the lung bases to the pubic symphysis. Coronal and sagittal reformats were performed. For radiation dose reduction, the following was used: automated exposure control, adjustment of mA and/or kV according to patient size. COMPARISON: None. FINDINGS: Lower thorax: The lung bases are clear. Heart size normal. No hiatal hernia. Liver: The liver is diffusely decreased in attenuation without focal mass lesion. Additional focal fatty infiltration noted adjacent to the falciform ligament as well Biliary system: No calcified cholelithiasis or pericholecystic inflammation. No intra or extrahepatic bile duct dilatation. Pancreas: Pancreatic edema and hypoattenuation noted in the body and tail the pancreas with surrounding peripancreatic edema and fluid. No evidence of organized pseudocyst. Spleen: Normal in size and density. Adrenals: Normal morphology and density. Reproductive system: Unremarkable as visualized. Urinary system: Normal renal size and attenuation. Right renal scarring No renal calculi, hydronephrosis, or solid mass present. Urinary bladder unremarkable. Gastrointestinal system: The bowel is unremarkable without evidence of bowel obstruction or inflammation. The stomach appears unremarkable. Appendix: No findings to suggest acute appendicitis. Peritoneal spaces: No mesenteric or retroperitoneal adenopathy. No free air. No free fluid. Vasculature: The IVC, aorta and iliac vasculature are unremarkable. Abdominal wall: Abdominal wall intact without evidence of ventral or inguinal hernias. Musculoskeletal: Normal bone mineralization. No acute fractures. IMPRESSION: Acute pancreatitis with peripancreatic phlegmon and fluid. No evidence of organized abscess or pseudocyst. Hepatic fatty infiltration Approved by: Jone Steinberg M.D. on 05/16/2024 at 13:34
[2024-05-16 12:33] LABS: Influenza A - CEPHEID Flu A NEGATIVE (NEGATIVE); Influenza B - CEPHEID Flu B NEGATIVE (NEGATIVE); Respiratory Syncytial Virus Negative (Negative)
[2024-05-16 12:45] LABS: HCG Quantitative /Beta subunit < 2.39 mIU/mL
[2024-05-16 12:55] LABS: COVID-19 CEPHEID 4-PLEX PCR Negative (Negative)
[2024-05-16] MEDS: HYDROMORPHONE 0.5 MG INJ 0.2 MG IV ×3 (13:04→16:53)
[2024-05-16] MEDS: METOCLOPRAMIDE 10 MG/2 ML INJ 5 MG IV ×2 (13:05→16:59)
[2024-05-16] MEDS: DEXTROSE 5% WATER 1,000 ML 70 ML IV (13:10)
[2024-05-16 16:56] LABS: BUN Creatinine Ratio 16.7 (6-22); Blood Urea Nitrogen 6 mg/dL (7-17); Carbon Dioxide 28 mmol/L (22-32); Chloride 101 mmol/L (98-107); Estimated Glomerular Filt Rate > 60 mL/min (>60); Glucose 164 mg/dL (70-100); HEMOLYSIS < 15 (0-50); Potassium 3.7 mmol/L (3.4-5.1); Sodium 135 mmol/L (137-145)
--- NOTE | 2024-05-16 18:13 | PC.NURSE ---
Pt arrived from ED in a wheelchair at 1745, able to transfer CGA to bed. A&Ox4, VSS on RA, c/o 6/10 pain to abdomen, moderate nausea, CMS+, bowel sounds hypoactive. Able to ambulate CGA to bathroom to void. Urine sample collected. Pt and family oriented to room and call light. Bed in low position, call light within reach.
[2024-05-16 18:30] LABS: Appearance Urine UA CLEAR; Bilirubin Urine UA 1+ (NEGATIVE); Color Urine UA YELLOW; Glucose Urine UA NEGATIVE (Negative); Ketones Urine UA 1+ (NEGATIVE); Leukocyte Esterase Urine UA NEGATIVE (NEGATIVE); Nitrite Urine UA POSITIVE (Negative); Occult Blood Urine UA NEGATIVE (Negative); Protein Urine UA TRACE (Negative)
[2024-05-16] MEDS: PANTOPRAZOLE 40 MG VIAL IV (18:31)
[2024-05-16] MEDS: ONDANSETRON 4 MG/2 ML INJ 6 MG IV ×2 (18:31→23:42)
[2024-05-16] MEDS: HYDROMORPHONE 1 MG INJ IV ×2 (18:31→21:06)
[2024-05-16 18:37] LABS: Bacteria Urine Moderate (10-30); RBC Urine None Seen (0-5/HPF); Squamous Epithelial Cell Urine None Seen (0-5/HPF); Urine Volume 10mL (spun); WBC Urine 5-10/HPF (0-5/HPF)
[2024-05-16 18:39] LABS: Culture Indicated Urine Specimen Cultured; Ictotest Urine Negative (Negative)
--- NOTE | 2024-05-16 19:52 | P.HP_ITS ---
History of Present Illness History of Present Illness Date Patient Seen: 05/16/24 Time Patient Seen: 19:52 Chief complaint: vomiting, nausea, stomach cramping Narrative: 29-year-old female who normally sees Dr. Meng Brady admitted with severe nausea vomiting and abdominal pain. Symptoms have been present for 24 hours or so. Patient initially started with more kind of upper respiratory symptoms that she had a sinus infection for about a week with headache some photophobia maybe some queasiness in her stomach. Than the morning of admission develop much more significant abdominal pain in the epigastric area. Maybe goes around to her back. Significant vomiting through the course of the morning was unable to keep anything down. Came to the ER where with pain meds and parental antiemetics her symptoms are much improved No prior experience with symptoms like this ER evaluation demonstrated evidence of pancreatitis with a significantly elevated lipase and findings on CT imaging as well consistent with pancreatitis. Electrolytes were abnormal with a sodium initially of 161 but normal creatinine and glucose of 149. Slight bump in her LFTs as well which has been seen previously Patient does admit to alcohol intake least 2 drinks daily perhaps more in the past. Has had nothing to drink for the last 48 hours she says. Past medical history otherwise fairly benign. On no prescription medication. Recently being evaluated for possible carpal tunnel syndrome and was taking ibuprofen 400 mg to 1 3 times a day but that is not had any that for over a week [facility] Medical History Irregular menstrual cycle (~2011) Esophagitis (~2006) Surgical History Hx of toe surgery (2006) Hx of wisdom tooth extraction (2011) Family History Father Age: 62 Hypertension Kidney disease Social History household members: spouse Smoking Status: Current every day smoker alcohol intake: current substance use type: does not use Meds Home Medications and Allergies Home Medications Medication Instructions Recorded Confirmed Type No Known Home Medications 05/16/24 05/16/24 History Allergies Allergy/AdvReac Type Severity Reaction Status Date / Time No Known Drug Allergies Allergy Verified 05/16/24 11:26 Review of Systems Review of Systems ROS: Yes All systems reviewed with the patient and are negative except as otherwise documented Exam Vital Signs (past 8 hours): - 05/16/24 12:00 05/16/24 12:01 05/16/24 12:01 Temperature Pulse Rate 98 H 109 H Respiratory Rate 18 Blood Pressure 147/96 H Pulse Oximetry 100 100 Oxygen Delivery Method Oxygen Flow Rate 05/16/24 12:30 05/16/24 12:30 05/16/24 13:00 Temperature Pulse Rate 73 Respiratory Rate 18 Blood Pressure 132/92 H 130/93 H Pulse Oximetry 98 Oxygen Delivery Method Oxygen Flow Rate 05/16/24 13:00 05/16/24 13:30 05/16/24 13:31 Temperature Pulse Rate 71 74 Respiratory Rate 18 18 Blood Pressure 129/90 Pulse Oximetry 97 94 Oxygen Delivery Method Oxygen Flow Rate 05/16/24 13:31 05/16/24 14:00 05/16/24 14:00 Temperature Pulse Rate 73 64 Respiratory Rate 18 Blood Pressure 135/93 H Pulse Oximetry 99 99 Oxygen Delivery Method Oxygen Flow Rate 05/16/24 14:30 05/16/24 14:30 05/16/24 15:00 Temperature Pulse Rate 71 Respiratory Rate Blood Pressure 136/86 140/96 H Pulse Oximetry 99 Oxygen Delivery Method Oxygen Flow Rate 05/16/24 15:00 05/16/24 15:30 05/16/24 15:30 Temperature Pulse Rate 70 74 Respiratory Rate Blood Pressure 129/86 Pulse Oximetry 97 99 Oxygen Delivery Method Oxygen Flow Rate 05/16/24 16:00 05/16/24 16:02 05/16/24 16:02 Temperature Pulse Rate 68 69 Respiratory Rate 18 16 Blood Pressure 123/86 Pulse Oximetry 97 98 Oxygen Delivery Method Oxygen Flow Rate 05/16/24 16:30 05/16/24 16:30 05/16/24 17:00 Temperature Pulse Rate 63 65 Respiratory Rate 18 Blood Pressure 120/84 Pulse Oximetry 98 99 Oxygen Delivery Method Oxygen Flow Rate 05/16/24 17:01 05/16/24 17:45 05/16/24 18:20 Temperature 98.1 F Pulse Rate 62 Respiratory Rate 18 16 Blood Pressure 136/85 132/101 H Pulse Oximetry 99 Oxygen Delivery Method Room Air Oxygen Flow Rate 0 Oxygen Delivery Method Room Air Oxygen Flow Rate 0 Narrative Exam Narrative: Young female in no obvious distress lying in hospital bed HEENT-unremarkable, normocephalic atraumatic Neck-no lymphadenopathy no bruits Lungs-clear anteriorly and posteriorly no wheezes no crackles good breath sounds Heart-regular rate and rhythm, no murmur, rub, or gallop. normal S1-S2 Abdomen-positive bowel tones, soft, nontender, nondistended, no hepatosplenomegaly, no masses palpable Neuro-normal to screening exam, gait not tested Extremities-no cyanosis clubbing or edema Objective Labs 05/16/24 11:30 05/16/24 16:40 Labs: Laboratory Results - last 24 hr 05/16/24 05/16/24 05/16/24 11:30 11:51 16:40 WBC 17.7 H RBC 4.26 Hgb 15.4 Hct 45.1 MCV 105.9 H MCH 36.2 H MCHC 34.2 RDW 17.2 H Plt Count 394 Neut % (Auto) 93.9 H Lymph % (Auto) 2.7 L [place] % (Auto) 3.0 Eos % (Auto) 0.0 L Baso % (Auto) 0.4 Neut # (Auto) 44413 H Lymph # (Auto) 500 L [place] # (Auto) 500 Eos # (Auto) 0 Baso # (Auto) 100 Sodium 161 H* 135 L D Potassium 3.7 3.7 Chloride 102 101 Carbon Dioxide 29 28 BUN 6 L 6 L Creatinine 0.40 L 0.36 L Estimated GFR > 60 > 60 BUN/Creatinine Ratio 15.0 16.7 Glucose 149 H 164 H Calcium 9.4 9.0 Total Bilirubin 1.3 AST 82 H ALT 76 H Alkaline Phosphatase 99 Total Protein 7.3 Albumin 4.2 Globulin 3.1 Albumin/Globulin Ratio 1.4 Lipase 1380 H HCG, Quant < 2.39 Urine Color Urine Appearance Urine pH Ur Specific [place] Urine Protein Urine Glucose (UA) Urine Ketones Urine Occult Blood Urine Nitrate Urine Bilirubin Ur Bilirubin Confirm Urine Urobilinogen Ur Leukocyte Esterase Urine RBC Urine WBC Ur Squamous Epith Cells Urine Bacteria Ur Culture Indicated? Vol Urine Centrifuged SARS-CoV-2 (PCR) Negative Influenza A (RT-PCR) Flu a negative Influenza B (RT-PCR) Flu b negative RSV (PCR) Negative 05/16/24 18:00 WBC RBC Hgb Hct MCV MCH MCHC RDW Plt Count Neut % (Auto) Lymph % (Auto) [place] % (Auto) Eos % (Auto) Baso % (Auto) Neut # (Auto) Lymph # (Auto) [place] # (Auto) Eos # (Auto) Baso # (Auto) Sodium Potassium Chloride Carbon Dioxide BUN Creatinine Estimated GFR BUN/Creatinine Ratio Glucose Calcium Total Bilirubin AST ALT Alkaline Phosphatase Total Protein Albumin Globulin Albumin/Globulin Ratio Lipase HCG, Quant Urine Color Yellow Urine Appearance Clear Urine pH 7.0 Ur Specific [place] 1.010 Urine Protein Trace H Urine Glucose (UA) Negative Urine Ketones 1+ H Urine Occult Blood Negative Urine Nitrate Positive H Urine Bilirubin 1+ H Ur Bilirubin Confirm Negative Urine Urobilinogen 1.0 Ur Leukocyte Esterase Negative Urine RBC None seen Urine WBC 5-10/hpf H Ur Squamous Epith Cells None seen Urine Bacteria Moderate (10-30) H Ur Culture Indicated? Specimen cultured Vol Urine Centrifuged 10ml (spun) SARS-CoV-2 (PCR) Influenza A (RT-PCR) Influenza B (RT-PCR) RSV (PCR) Assessment & Plan Assessment & Plan narrative: 1. Pancreatitis-patient is on no medications to induce this. Therefore most likely culprit would be alcohol. She will need to avoid this in the future in my opinion. For now she needs to be kept NPO with parental pain meds and of course antiemetics. Plan to repeat labs tomorrow to follow-up on her lipase etcetera. Re-feed when numbers and clinical status are improved 2. Hypernatremia-likely secondary to GI losses. Patient actually rapidly corrected with the institution of D5W in the ER. This was unfortunately much more rapid than I would have desired. Patient was placed on an appropriate rate of infusion of the D5W, and repeat BMP was performed at 4 hours, unfortunately demonstrating that her sodium had dropped to 135. I wonder about the accuracy of the initial sodium therefore. For now, I will stop the D5W, and repeat her BMP. Will plan to place her on normal saline at this time, and recheck numbers tomorrow. May need to adjust her IV fluids and or rate of infusion depending on results of her BMP. Fortunately she has no neurologic symptoms whatsoever at this time. 3. Alcohol use disorder-if indeed alcohol as the culprit behind her pancreatitis, it seems likely she has some element of alcohol use disorder. There were findings on CT suggestive chronic liver disease as well as on her blood work. This can be addressed as an outpatient by her PCP 4. VTE prophylaxis-Lovenox appropriate and ordered 5. Code status-full code Time-Based Coding :: [TOTAL MINUTES] spent with patient and on the chart (including review of chart, obtaining history, exam, reviewing outside data, placing orders, documenting exam and treatment plan, and counseling patient) on [DATE]. Quality VTE Deep Vein Thrombosis/Pulmonary Embolism Present on Admission: No IH PROFEE Charge Codes Initial inpatient/observation care: 49997
[2024-05-16] MEDS: SODIUM CHLORIDE 0.9% 1,000 ML 75 ML IV (20:15)
[2024-05-16 20:36] LABS: BUN Creatinine Ratio 15.8 (6-22); Blood Urea Nitrogen 6 mg/dL (7-17); Calcium 9.1 mg/dL (8.4-10.2); Carbon Dioxide 29 mmol/L (22-32); Chloride 101 mmol/L (98-107); Estimated Glomerular Filt Rate > 60 mL/min (>60); Glucose 146 mg/dL (70-100); HEMOLYSIS < 15 (0-50); Potassium 3.8 mmol/L (3.4-5.1); Sodium 134 mmol/L (137-145)
[2024-05-17] MEDS: HYDROMORPHONE 1 MG INJ IV ×10 (00:35→23:18)
[2024-05-17 02:00] VITALS: BP 139/99; PULSE 72; RESP 20; TEMP 36.1; O2SAT 100
--- NOTE | 2024-05-17 02:55 | PC.NURSE ---
Addendum entered by Prachi Nesbitt R.N. 05/17/24 05:02: New orders from MD Galvez @ 0500: Reglan 5mg IV Q6 PRN. Addendum entered by Prachi Nesbitt R.N. 05/17/24 04:42: Attempted 2nd call to [address] answering service @0344 to read MD conference planning manager, no callback. Original Note: NOC: Pt experiencing worsening N/V despite administration of scheduled Zofran. Provided alcohol swabs, cool cloths to forehead, and a fan but no improvement. Called [address] answering service to reach MD conference planning manager, waiting for callback.
[2024-05-17] MEDS: ONDANSETRON 4 MG/2 ML INJ 6 MG IV ×4 (04:27→20:37)
[2024-05-17 05:03] LABS: Add Manual Diff / Slide Review NO; Basophils Absolute Auto 100 /uL (0-100); Basophils Percent Auto 0.3 % (0-2); Eosinophils Absolute Auto 0 /uL (0-450); Hematocrit 43.5 % (36-46); Hemoglobin 14.7 g/dL (12.0-16.0); Lymphocytes Absolute Auto 800 /uL (1100-4500); Lymphocytes Percent Auto 3.2 % (25-40); Mean Corpuscular HGB Conc 33.8 % (30-36); Mean Corpuscular Hemoglobin 36.1 PG (26-34); Mean Corpuscular Volume 106.6 fL (80-100); Monocytes Absolute Auto 1100 /uL (0-900); Monocytes Percent Auto 4.3 % (3-14); Neutrophils Absolute Auto 24200 /uL (1500-7000); Neutrophils Percent Auto 92.2 % (50-75); Platelet Count 368 X10^3/uL (150-400); Red Blood Cell Count 4.08 X10^6/uL (4.0-5.2); Red Cell Distribution Width 17.3 % (11.6-14.8); White Blood Cell Count 26.3 X10^3/uL (4.5-11.0)
[2024-05-17] MEDS: METOCLOPRAMIDE 10 MG/2 ML INJ 5 MG IV ×4 (05:10→23:18)
[2024-05-17 05:15] LABS: BUN Creatinine Ratio 19.4 (6-22); Blood Urea Nitrogen 7 mg/dL (7-17); Calcium 9.2 mg/dL (8.4-10.2); Carbon Dioxide 23 mmol/L (22-32); Chloride 103 mmol/L (98-107); Estimated Glomerular Filt Rate > 60 mL/min (>60); Glucose 138 mg/dL (70-100); HEMOLYSIS 20 (0-50); Potassium 3.5 mmol/L (3.4-5.1); Sodium 139 mmol/L (137-145)
[2024-05-17] MEDS: SODIUM CHLORIDE 0.9% 1,000 ML 100 ML IV (06:21)
[2024-05-17 06:29] LABS: Lipase 3048 U/L (23-300)
[2024-05-17 07:00] VITALS: O2SAT 95
[2024-05-17 08:00] VITALS: BP 125/90; PULSE 74; RESP 16; TEMP 35.7; O2SAT 95
[2024-05-17] MEDS: PANTOPRAZOLE 40 MG VIAL IV (08:17)
[2024-05-17] MEDS: ENOXAPARIN 40 MG/0.4 ML SYRINGE SUBCUT (08:17)
--- NOTE | 2024-05-17 08:24 | PC.NURSE ---
Addendum entered by Micki Garcia R.N. 05/17/24 19:40: 1930 Report given to nightshift RN. Plan of care discussed. 1800 MD Brady and RN with verbal communication at the bedside. MD aware of lipase lab. MD provided patient care update and notified that patient throughout day complaining of pain, nausea and vomiting and provided medication. Original Note: 1730 Report received from nightshift RN. Patient AAO x's 3. Able to FORBES. PIV noted to left AC infusing NS at 100 mL. Call light within reach and bed in lowest position. 0824 MD Brady at the bedside, updating patient on plan of care. Patient given Zofran, pain medication and Protonix at this time. Patient on continuos fluids.
--- NOTE | 2024-05-17 08:30 | PM.PN.1 ---
Subjective Subjective Date Patient Seen: 05/17/24 Time Patient Seen: 08:31 Interval history: Patient seen in follow-up of pancreatitis and hyponatremia. Was up all night vomiting. Medicine helps but assumes it starts to wear off she is having increasing vomiting. With no other changes. No fevers no chills vital signs otherwise stable no new pain. Exam Vital Signs (past 8 hours): - 05/17/24 02:00 Temperature 97 F L Pulse Rate 72 Respiratory Rate 20 Blood Pressure 139/99 H Pulse Oximetry 100 Oxygen Flow Rate 0 Oxygen Delivery Method Room Air Oxygen Flow Rate 0 Narrative Exam Narrative: Alert fatigued female in no acute distress Lungs are clear heart is regular rate and rhythm abdomen is soft positive bowel sounds no significant tenderness Objective Labs 05/17/24 04:44 05/17/24 04:44 Labs: Laboratory Results - last 24 hr 05/16/24 05/16/24 05/16/24 11:30 11:51 16:40 WBC 17.7 H RBC 4.26 Hgb 15.4 Hct 45.1 MCV 105.9 H MCH 36.2 H MCHC 34.2 RDW 17.2 H Plt Count 394 Neut % (Auto) 93.9 H Lymph % (Auto) 2.7 L [place] % (Auto) 3.0 Eos % (Auto) 0.0 L Baso % (Auto) 0.4 Neut # (Auto) 74867 H Lymph # (Auto) 500 L [place] # (Auto) 500 Eos # (Auto) 0 Baso # (Auto) 100 Sodium 161 H* 135 L D Potassium 3.7 3.7 Chloride 102 101 Carbon Dioxide 29 28 BUN 6 L 6 L Creatinine 0.40 L 0.36 L Estimated GFR > 60 > 60 BUN/Creatinine Ratio 15.0 16.7 Glucose 149 H 164 H Calcium 9.4 9.0 Total Bilirubin 1.3 AST 82 H ALT 76 H Alkaline Phosphatase 99 Total Protein 7.3 Albumin 4.2 Globulin 3.1 Albumin/Globulin Ratio 1.4 Lipase 1380 H HCG, Quant < 2.39 Urine Color Urine Appearance Urine pH Ur Specific [place] Urine Protein Urine Glucose (UA) Urine Ketones Urine Occult Blood Urine Nitrate Urine Bilirubin Ur Bilirubin Confirm Urine Urobilinogen Ur Leukocyte Esterase Urine RBC Urine WBC Ur Squamous Epith Cells Urine Bacteria Ur Culture Indicated? Vol Urine Centrifuged SARS-CoV-2 (PCR) Negative Influenza A (RT-PCR) Flu a negative Influenza B (RT-PCR) Flu b negative RSV (PCR) Negative 05/16/24 05/16/24 05/17/24 18:00 20:17 04:44 WBC 26.3 H RBC 4.08 Hgb 14.7 Hct 43.5 MCV 106.6 H MCH 36.1 H MCHC 33.8 RDW 17.3 H Plt Count 368 Neut % (Auto) 92.2 H Lymph % (Auto) 3.2 L [place] % (Auto) 4.3 Eos % (Auto) 0.0 L Baso % (Auto) 0.3 Neut # (Auto) 01153 H Lymph # (Auto) 800 L [place] # (Auto) 1100 H Eos # (Auto) 0 Baso # (Auto) 100 Sodium 134 L 139 Potassium 3.8 3.5 Chloride 101 103 Carbon Dioxide 29 23 BUN 6 L 7 Creatinine 0.38 L 0.36 L Estimated GFR > 60 > 60 BUN/Creatinine Ratio 15.8 19.4 Glucose 146 H 138 H Calcium 9.1 9.2 Total Bilirubin AST ALT Alkaline Phosphatase Total Protein Albumin Globulin Albumin/Globulin Ratio Lipase 3048 H D HCG, Quant Urine Color Yellow Urine Appearance Clear Urine pH 7.0 Ur Specific [place] 1.010 Urine Protein Trace H Urine Glucose (UA) Negative Urine Ketones 1+ H Urine Occult Blood Negative Urine Nitrate Positive H Urine Bilirubin 1+ H Ur Bilirubin Confirm Negative Urine Urobilinogen 1.0 Ur Leukocyte Esterase Negative Urine RBC None seen Urine WBC 5-10/hpf H Ur Squamous Epith Cells None seen Urine Bacteria Moderate (10-30) H Ur Culture Indicated? Specimen cultured Vol Urine Centrifuged 10ml (spun) SARS-CoV-2 (PCR) Influenza A (RT-PCR) Influenza B (RT-PCR) RSV (PCR) [facility] Medical History Irregular menstrual cycle (~2011) Esophagitis (~2006) Surgical History Hx of toe surgery (2006) Hx of wisdom tooth extraction (2011) Family History Father Age: 62 Hypertension Kidney disease Social History household members: spouse Smoking Status: Current every day smoker alcohol intake: current substance use type: does not use Assessment & Plan Assessment & Plan narrative: Pancreatitis. Worsening. CT scan showed no evidence of obstruction. Or other change. Most likely alcohol induced. Will continue IV hydration and support. Pain control. NPO and continue to follow. Rechecked later this afternoon. Elevated white count. Probably secondary to pancreatitis. No previous evidence of mass or abscess. Will follow. Does have probable UTI which I do not think is probably systemic but will cover at this point with IV Rocephin and re-evaluate. Dehydration. Will increase fluid 250 cc an hour re-evaluate a.m.. Nausea and vomiting. On Reglan and Zofran. Will continue. Alcohol use disorder. No evidence of withdrawal at this point will continue to follow. DVT prophylaxis on Lovenox. Code status full. Disposition. Patient worse and will need to be followed closely. Certainly not doing that well at this time. We need to follow and will continue this. No other changes. Expect 3-4 days at best. Time-Based Coding :: [TOTAL MINUTES] spent with patient and on the chart (including review of chart, obtaining history, exam, reviewing outside data, placing orders, documenting exam and treatment plan, and counseling patient) on [DATE]. Quality VTE Deep Vein Thrombosis/Pulmonary Embolism Present on Admission: No
[2024-05-17] MEDS: cefTRIAXone 2,000 MG in SODIUM CHLORIDE 0.9% 100 ML 200 MG IV (08:38)
--- NOTE | 2024-05-17 11:18 | CM.DANOTE ---
Initial DCP Assessment Note Pt is a 29 yo female, resident of [place], presents with N/V, abd pain, admitted for management of pancreatitis, chart indicates this is likely alcohol induced. PCP: Meng Brady Payer: Benjamín/RICKI Reviewed chart, pt discussed in multidisciplinary rounds this morning. Patient with persistent vomiting overnight. Patient NPO. Patient is expected to remain admitted at least through 05/19 for continued medical management. Patient lives independently with her spouse and young kiddo. Patient reportedly drinks 3 or more drinks daily, reported heavier drinking in the past. No signs sx of alcohol withdrawal at this time. No barriers identified at this time to patient's safe discharge home w/family to assist; close outpatient f/u recommended. CM team will plan to follow clinical course closely in case any DC needs or concerns arise. GERARDO Spencer Discharge Planning/Care Management CM Discharge Assessment Start: 05/17/24 11:02 Freq: Status: Active Protocol: Document 05/17/24 11:03 PAYAM (Rec: 05/17/24 11:18 PAYAM [id number]) Discharge Planning Assessment Assigned Wood Caulker GERARDO Ribera DPOA/Assigned Designee Name Moi Tesha Contact Information [phone] Advance Directives? No History Provided By Patient,Significant Other, Medical Record Prior Living Arrangements House Household Members spouse,children Type of transporation used prior to Drives own vehicle admit Independent with ADL's Yes Is patient alert and oriented? Yes Barriers to Discharge No Discharge Plan Home Transportation Arrangement Family Referrals Initiated None needed
[2024-05-17] MEDS: POTASSIUM CHLORIDE IN WATER 10 MEQ/100 ML PIGGYBACK 100 MEQ IV ×2 (12:04→13:17)
--- NOTE | 2024-05-17 13:46 | DIET.CONS ---
Dietary Consultation Note Admission Date: 05/16/2024 15:58 Assessment: 29 y F admitted for pancreatitis. RD screened for low MNA. Met w/ pt at bedside who reports last 2-3 months a decrease/lack of appetite and decrease in PO intakes d/t stress. Has had 2 small snacks daily compared to usual meals and snacks, reporting meal size was 50% or less of what she normally does. Per ED note - pt drinks 2 alcoholic drinks per day and previously has done 3. Did not eat anything since Friday, where she had yogurt cup. Nutrition focused physical exam performed with no significant results. Pt laying down- limited exam - assessed templed, buccal and orbital fat pads, and interosseous. Ht: 170.18 cm Wt: 54.431 kg BMI: 18.8 UBW: 56.8-59.1 kg (125-130 lb) per pt (-11-14.5% weight loss within 3 months, severe) Last BM: 05/15/24 (05/16/24 17:59) MNA: 7 Lee Score: 21 Diet: 05/16/24 11:33 NPO Diet Diet Modifications: NPO Type: NPO except for Ice Chips Labs: RBC 4.08 X10^6/uL (4.0-5.2) 05/17/24 04:44 Hgb 14.7 g/dL (12.0-16.0) 05/17/24 04:44 Hct 43.5 % (36-46) 05/17/24 04:44 Creatinine 0.36 mg/dL (0.52-1.04) L 05/17/24 04:44 Nutrition Diagnosis: Severe acute protein calorie malnutrition related to lack of appetite as evidenced by 11% weight loss within 3 months (severe), 50% or less estimated energy intakes for 2-3 months per diet recall, excessive alcohol intake (2-3 drinks/day) Altered GI function r/t compromised exocrine function of related GI organs aeb pancreatitis Interventions: 1. Pt on day 2 NPO for pancreatitis, will continue to follow to monitor for diet advancement as medically ready. EER: [id number] kcals (25-30 kcals per BMI) 65-75 g protein (1.25 g per PCM) Electronically Signed by: Lita Delvalle 05/17/24 13:[address] [id number]
[2024-05-17 14:00] VITALS: BP 136/100; PULSE 65; RESP 20; TEMP 36.2; O2SAT 98
[2024-05-17] MEDS: SODIUM CHLORIDE 0.9% 1,000 ML 150 ML IV ×2 (14:38→21:20)
[2024-05-17 16:05] LABS: Lipase 2686 U/L (23-300)
[2024-05-17 19:00] VITALS: O2SAT 100
[2024-05-17 21:00] VITALS: BP 121/85; PULSE 73; RESP 18; TEMP 36.6; O2SAT 100
[2024-05-18] MEDS: ONDANSETRON 4 MG/2 ML INJ 6 MG IV ×3 (02:15→14:43)
[2024-05-18] MEDS: HYDROMORPHONE 1 MG INJ IV ×9 (02:15→23:31)
[2024-05-18] MEDS: SODIUM CHLORIDE 0.9% 1,000 ML 150 ML IV ×3 (03:51→18:59)
[2024-05-18] MEDS: METOCLOPRAMIDE 10 MG/2 ML INJ 5 MG IV ×3 (05:27→17:18)
[2024-05-18 06:00] VITALS: BP 130/66; PULSE 66; RESP 18; TEMP 36.7; O2SAT 96
[2024-05-18 06:15] LABS: Add Manual Diff / Slide Review NO; Basophils Absolute Auto 200 /uL (0-100); Basophils Percent Auto 1.2 % (0-2); Eosinophils Absolute Auto 0 /uL (0-450); Hematocrit 37.9 % (36-46); Hemoglobin 12.5 g/dL (12.0-16.0); Lymphocytes Absolute Auto 600 /uL (1100-4500); Lymphocytes Percent Auto 3.5 % (25-40); Mean Corpuscular HGB Conc 33.1 % (30-36); Mean Corpuscular Hemoglobin 36.2 PG (26-34); Mean Corpuscular Volume 109.4 fL (80-100); Monocytes Absolute Auto 700 /uL (0-900); Neutrophils Absolute Auto 16400 /uL (1500-7000); Neutrophils Percent Auto 91.3 % (50-75); Platelet Count 243 X10^3/uL (150-400); Red Blood Cell Count 3.46 X10^6/uL (4.0-5.2); Red Cell Distribution Width 17.3 % (11.6-14.8); White Blood Cell Count 17.9 X10^3/uL (4.5-11.0)
[2024-05-18 06:30] LABS: Alanine Aminotransferase 33 IU/L (<35); Albumin 3.1 g/dL (3.5-5.0); Albumin Globulin Ratio 1.2 (1.0-2.8); Alkaline Phosphatase 64 U/L (38-126); Aspartate Aminotransferase 32 IU/L (14-36); BUN Creatinine Ratio 21.6 (6-22); Blood Urea Nitrogen 8 mg/dL (7-17); Calcium 8.6 mg/dL (8.4-10.2); Carbon Dioxide 27 mmol/L (22-32); Chloride 107 mmol/L (98-107); Estimated Glomerular Filt Rate > 60 mL/min (>60); Globulin 2.6 g/dL (1.7-4.1); Glucose 95 mg/dL (70-100); HEMOLYSIS < 15 (0-50); Potassium 3.7 mmol/L (3.4-5.1); Sodium 140 mmol/L (137-145); Total Protein 5.7 g/dL (6.3-8.2)
[2024-05-18 06:40] LABS: Lipase 2359 U/L (23-300)
[2024-05-18 08:00] VITALS: PULSE 91; RESP 18; TEMP 36.6; O2SAT 100
[2024-05-18 08:30] VITALS: O2SAT 100
--- NOTE | 2024-05-18 08:38 | P.PN_ITS ---
Subjective Subjective Date Patient Seen: 05/18/24 Time Patient Seen: 08:39 Interval history: Patient seen in follow-up of pancreatitis elevated white count dehydration nausea. Had an okay night. Was taking p.o. but woke up this morning is vomiting as we speak. Pain is about the same. Still using Dilaudid every 2 hours. Otherwise no change. Exam Vital Signs (past 8 hours): - 05/18/24 06:00 05/18/24 08:30 Temperature 98.0 F Pulse Rate 66 Respiratory Rate 18 Blood Pressure 130/66 Pulse Oximetry 96 100 Oxygen Delivery Method Room Air Oxygen Flow Rate 0 0 Oxygen Delivery Method Room Air Oxygen Flow Rate 0 Narrative Exam Narrative: Alert female vomiting in no acute distress Lungs are clear heart is regular rate and rhythm abdomen is soft positive bowel sounds with mild epigastric tenderness Objective Labs 05/18/24 05:29 05/18/24 05:29 Labs: Laboratory Results - last 24 hr 05/17/24 05/18/24 15:37 05:29 WBC 17.9 H RBC 3.46 L Hgb 12.5 Hct 37.9 MCV 109.4 H MCH 36.2 H MCHC 33.1 RDW 17.3 H Plt Count 243 Neut % (Auto) 91.3 H Lymph % (Auto) 3.5 L [place] % (Auto) 4.0 Eos % (Auto) 0.0 L Baso % (Auto) 1.2 Neut # (Auto) 04722 H Lymph # (Auto) 600 L [place] # (Auto) 700 Eos # (Auto) 0 Baso # (Auto) 200 H Sodium 140 Potassium 3.7 Chloride 107 Carbon Dioxide 27 BUN 8 Creatinine 0.37 L Estimated GFR > 60 BUN/Creatinine Ratio 21.6 Glucose 95 Calcium 8.6 Total Bilirubin 1.0 AST 32 ALT 33 Alkaline Phosphatase 64 Total Protein 5.7 L Albumin 3.1 L Globulin 2.6 Albumin/Globulin Ratio 1.2 Lipase 2686 H 2359 H PFSH Medical History Irregular menstrual cycle (~2011) Esophagitis (~2006) Surgical History Hx of toe surgery (2006) Hx of wisdom tooth extraction (2011) Family History Father Age: 62 Hypertension Kidney disease Social History household members: spouse and children Smoking Status: Current every day smoker alcohol intake: current substance use type: does not use Assessment & Plan Assessment & Plan narrative: Pancreatitis. Mildly improved. CT scan shows no evidence of obstruction. White count seems to be trending down. Symptoms are slightly improved. Will continue same care. Hopefully tomorrow she is starting to improve. Will follow from there. Elevated white count secondary to probable pancreatitis. No evidence of abscess or other changes. Certainly symptoms do not dictate that. No fever. Will continue to follow recheck white count in a.m.. Dehydration. Mild. Will decrease fluid and follow from there. Alcohol use disorder hard to know no evidence of withdrawal will follow DVT prophylaxis on Lovenox Code status full. Disposition. Do not anticipate discharge until or Friday hopefully Time-Based Coding :: [TOTAL MINUTES] spent with patient and on the chart (including review of chart, obtaining history, exam, reviewing outside data, placing orders, documenting exam and treatment plan, and counseling patient) on [DATE]. Quality VTE Deep Vein Thrombosis/Pulmonary Embolism Present on Admission: No
[2024-05-18] MEDS: PANTOPRAZOLE 40 MG VIAL IV (09:05)
[2024-05-18] MEDS: cefTRIAXone 2,000 MG in SODIUM CHLORIDE 0.9% 100 ML 200 MG IV (09:06)
[2024-05-18 14:00] VITALS: BP 128/74; PULSE 84; RESP 16; TEMP 37.2; O2SAT 97
--- NOTE | 2024-05-18 14:53 | CM.DPNOTE ---
DCP note SAVINGS COUNSELOR reviewed EMR. Per chart review, lots of pain/N/V overnight. Per Jose Antonio note, pt likely here vs Friday. SAVINGS COUNSELOR met with pt in room and introduced self and role. Resting in bed. Confirms drinks 2/3 alcoholic beverages per night for the past year. Pt claims stress around access to housing has been a trigger for her drinking. the house she's renting with her partner and child has been sold and they need to be out of the house in June, have no been able to find other appropriate housing. Reports she makes too much for a lot of the housing assistance programs. Reports since having her daughter she burned a lot of family bridges and does not have too many social supports. Pt began to cry and dry heave, reports thinking about and talking about her stressors causes her to feel even more nauseated. SAVINGS COUNSELOR updated RN. Entered room to provide care. SAVINGS COUNSELOR gave pt copies of housing resources, community action, TANF, emergency financial assistance, food palacio, and ETOH resources. Pt agreeable to meeting with this SAVINGS COUNSELOR again tomorrow, hopefully can chat more when she's not actively vomiting. No barriers identified at this time to patient's safe discharge home w/family to assist; close outpatient f/u recommended. CM team will plan to follow clinical course closely in case any DC needs or concerns arise. GERARDO Isbell
[2024-05-18 19:00] VITALS: O2SAT 100
[2024-05-18 20:00] VITALS: BP 130/74; PULSE 88; RESP 19; TEMP 36.4; O2SAT 99
[2024-05-19 02:50] VITALS: BP 143/102; PULSE 100; RESP 16; TEMP 36.7
[2024-05-19] MEDS: HYDROMORPHONE 1 MG INJ IV ×2 (02:50→06:32)
[2024-05-19] MEDS: ONDANSETRON 4 MG/2 ML INJ 6 MG IV ×2 (02:51→08:16)
[2024-05-19] MEDS: SODIUM CHLORIDE 0.9% 1,000 ML 150 ML IV (02:51)
[2024-05-19 05:56] LABS: Add Manual Diff / Slide Review NO; Basophils Absolute Auto 200 /uL (0-100); Basophils Percent Auto 1.1 % (0-2); Eosinophils Absolute Auto 0 /uL (0-450); Eosinophils Percent Auto 0.2 % (2-4); Hematocrit 35.4 % (36-46); Hemoglobin 11.7 g/dL (12.0-16.0); Lymphocytes Absolute Auto 700 /uL (1100-4500); Lymphocytes Percent Auto 4.4 % (25-40); Mean Corpuscular HGB Conc 33.1 % (30-36); Mean Corpuscular Hemoglobin 36.4 PG (26-34); Mean Corpuscular Volume 109.9 fL (80-100); Monocytes Absolute Auto 800 /uL (0-900); Monocytes Percent Auto 5.1 % (3-14); Neutrophils Absolute Auto 14200 /uL (1500-7000); Neutrophils Percent Auto 89.2 % (50-75); Platelet Count 251 X10^3/uL (150-400); Red Blood Cell Count 3.22 X10^6/uL (4.0-5.2); Red Cell Distribution Width 17.4 % (11.6-14.8); White Blood Cell Count 15.9 X10^3/uL (4.5-11.0)
[2024-05-19 06:21] LABS: Alanine Aminotransferase 29 IU/L (<35); Albumin Globulin Ratio 1.1 (1.0-2.8); Alkaline Phosphatase 70 U/L (38-126); Aspartate Aminotransferase 33 IU/L (14-36); BUN Creatinine Ratio 20.5 (6-22); Bilirubin Total 0.9 mg/dL (0.2-1.3); Blood Urea Nitrogen 8 mg/dL (7-17); Calcium 8.5 mg/dL (8.4-10.2); Carbon Dioxide 25 mmol/L (22-32); Chloride 107 mmol/L (98-107); Estimated Glomerular Filt Rate > 60 mL/min (>60); Globulin 2.7 g/dL (1.7-4.1); Glucose 70 mg/dL (70-100); HEMOLYSIS 18 (0-50); Lipase 776 U/L (23-300); Potassium 3.2 mmol/L (3.4-5.1); Sodium 137 mmol/L (137-145); Total Protein 5.7 g/dL (6.3-8.2)
[2024-05-19] MEDS: METOCLOPRAMIDE 10 MG/2 ML INJ 5 MG IV (06:33)
[2024-05-19] MEDS: cefTRIAXone 2,000 MG in SODIUM CHLORIDE 0.9% 100 ML 200 MG IV ×2 (08:06→12:27)
[2024-05-19] MEDS: PANTOPRAZOLE 40 MG VIAL IV (08:06)
[2024-05-19] MEDS: ENOXAPARIN 40 MG/0.4 ML SYRINGE SUBCUT (08:06)
[2024-05-19 08:50] VITALS: BP 137/87; PULSE 92; RESP 15; TEMP 36.5; O2SAT 97
--- NOTE | 2024-05-19 09:00 | PM.PN.1 ---
Subjective Subjective Date Patient Seen: 05/19/24 Time Patient Seen: 09:01 Interval history: Patient seen in follow-up of pancreatitis nausea vomiting dehydration. Essentially had no vomiting but still nauseating. Some spit-up. But no other change pain is improved but still present. All sub sternal epigastric with some radiation to the left. No other significant change or problem. No fevers no chills. Feeling like she might be hungry. Did tolerate clear liquids yesterday. Exam Vital Signs (past 8 hours): - 05/19/24 02:50 05/19/24 08:50 Temperature 98.1 F 97.7 F Pulse Rate 100 H 92 H Respiratory Rate 16 15 Blood Pressure 143/102 H 137/87 Pulse Oximetry 97 Oxygen Flow Rate 0 Oxygen Delivery Method Room Air Oxygen Flow Rate 0 Narrative Exam Narrative: Alert female much less fatigued in appearance today. Lungs are clear heart is regular rate and rhythm abdomen is positive bowel sounds soft mild epigastric tenderness. No rebound guarding no masses Objective Labs 05/19/24 05:14 05/19/24 05:14 Labs: Laboratory Results - last 24 hr 05/19/24 05:14 WBC 15.9 H RBC 3.22 L Hgb 11.7 L Hct 35.4 L MCV 109.9 H MCH 36.4 H MCHC 33.1 RDW 17.4 H Plt Count 251 Neut % (Auto) 89.2 H Lymph % (Auto) 4.4 L [place] % (Auto) 5.1 Eos % (Auto) 0.2 L Baso % (Auto) 1.1 Neut # (Auto) 83498 H Lymph # (Auto) 700 L [place] # (Auto) 800 Eos # (Auto) 0 Baso # (Auto) 200 H Sodium 137 Potassium 3.2 L Chloride 107 Carbon Dioxide 25 BUN 8 Creatinine 0.39 L Estimated GFR > 60 BUN/Creatinine Ratio 20.5 Glucose 70 Calcium 8.5 Total Bilirubin 0.9 AST 33 ALT 29 Alkaline Phosphatase 70 Total Protein 5.7 L Albumin 3.0 L Globulin 2.7 Albumin/Globulin Ratio 1.1 Lipase 776 H D PFSH Medical History Irregular menstrual cycle (~2011) Esophagitis (~2006) Surgical History Hx of toe surgery (2007) Hx of wisdom tooth extraction (2012) Family History Father Age: 62 Hypertension Kidney disease Social History household members: spouse and children Smoking Status: Current every day smoker alcohol intake: current substance use type: does not use Assessment & Plan Assessment & Plan narrative: Pancreatitis. Improved. Significant decrease in lipase. Seems better. Exam still with some tenderness. Will try to feed today. And see how she does. Switch to oral pain medicine. And follow from there. Elevated white count. Etiology is somewhat unclear. Does have UTI possible pyelonephritis positive culture. Will switch from Rocephin to Bactrim and see if we remained stable white count slowly been coming down. Certainly any worsening will repeat CT scan. UTI. E coli. Pansensitive. Will switch to Bactrim. Discontinue Rocephin. Dehydration. Improved. Tolerating p.o. better. Will see how she tolerates oral today. Nausea and vomiting. Probably secondary to pancreatitis. Improved. Will advance diet and go to oral Zofran. Will see how she does today. Alcohol use disorder. Will discuss again she has just not built to drink. We discussed this previously will rediscuss tomorrow. Hopefully she will be able to stay away. Unsure how much this is a problem at this time. Will figure it out over the next several months. Code status full. DVT prophylaxis on Lovenox. Disposition. Will see how the day goes. Unclear about how this may proceed. We discussed this. Patient is very nervous about going to orals will have to see how the day goes. But hopefully she will be able to tolerate it. If so will go home tomorrow on outpatient medications. Discussed with her and her . Follow-up a.m.. Greater than 50 minutes discussing with patient nursing orders dictation Time-Based Coding :: [TOTAL MINUTES] spent with patient and on the chart (including review of chart, obtaining history, exam, reviewing outside data, placing orders, documenting exam and treatment plan, and counseling patient) on [DATE]. Quality VTE Deep Vein Thrombosis/Pulmonary Embolism Present on Admission: No
[2024-05-19] MEDS: OXYCODONE/ACETAMINOPHEN 5/325 TABLET 1 TAB PO (09:15)
--- NOTE | 2024-05-19 09:34 | CM.DPNOTE ---
Addendum entered by GERARDO Isbell 05/19/24 11:28: Per RN, pt did not tolerate PO meds this morning. Switching back to IV. actively N/V during attempting COMMAND POST SUPERINTENDENT intervention. Will attempt again later this afternoon SL Original Note: DCP Note COMMAND POST SUPERINTENDENT reviewed EMR. Per PN, pt being switched to PO meds. tolerated clear diet better yesterday. Plans to dc either tomorrow vs Friday. COMMAND POST SUPERINTENDENT spoke with provider, shared theory of pt using alcohol to cope with anxiety/stressers of daily living. Provider plans to discuss anxiety/anti anxiety medication with pt tomorrow. P: No barriers identified at this time to patient's safe discharge home w/family to assist; close outpatient f/u recommended. CM team will plan to follow clinical course closely in case any DC needs or concerns arise. GERARDO Isbell
[2024-05-19] MEDS: POTASSIUM CHLORIDE 20 MEQ TAB 40 MEQ PO (10:23)
--- NOTE | 2024-05-19 10:36 | DIET.PN1 ---
Dietary Progress Note Assessment: F/u with pt at bedside. Pt was tolerating clears. Diet advanced to regular per MD. Pt ordered lower fat, small lunch (soup, juice yogurt) w/ unit host. Per SALESPERSON SURGICAL APPLIANCES in rounds- provided resources for housing assistance as this may be a source of stress for pt and MD to discuss possible anxiety medication for pt tomorrow. Pt dx with severe acute malnutrition at consult d/t lack of appetite that pt associates with significant stress past 2-3 months. Will continue to monitor diet progression. F/u 1-2 days. Ht: 170.18 cm Wt: 52.2 kg BMI: 18.8 Last BM: 05/15/24 (05/16/24 17:59) MNA: 7 Lee Score: 21 Diet: 05/19/24 Lunch General (Regular) Diet Diet Modifications: advance as tolerated Food Texture: Level 7 - Regular Liquid Consistency: Level 0 - Thin Labs: RBC 3.22 X10^6/uL (4.0-5.2) L 05/19/24 05:14 Hgb 11.7 g/dL (12.0-16.0) L 05/19/24 05:14 Hct 35.4 % (36-46) L 05/19/24 05:14 Creatinine 0.39 mg/dL (0.52-1.04) L 05/19/24 05:14 Electronically Signed by: Lita Delvalle 05/19/24 10:36 Clinical Dietitian [address] [address]
[2024-05-19 12:00] VITALS: BP 109/76; PULSE 76; RESP 14; TEMP 36.8; O2SAT 99
[2024-05-19] MEDS: HYDROMORPHONE 0.5 MG INJ 0.2 MG IV ×3 (12:27→17:10)
[2024-05-19] MEDS: ONDANSETRON 4 MG/2 ML INJ IV ×2 (12:29→17:10)
[2024-05-19 18:00] VITALS: BP 124/85; PULSE 86; RESP 15; TEMP 36.9; O2SAT 99
[2024-05-19 19:00] VITALS: O2SAT 99
[2024-05-19 20:00] VITALS: BP 128/83; PULSE 83; RESP 12; TEMP 37.3; O2SAT 99
[2024-05-19] MEDS: HYDROMORPHONE 0.5 MG INJ IV (20:59)
[2024-05-19] MEDS: SODIUM CHLORIDE 0.9% 1,000 ML 125 ML IV (21:35)
[2024-05-20] MEDS: HYDROMORPHONE 1 MG INJ IV ×2 (00:43→03:40)
[2024-05-20 02:00] VITALS: BP 126/85; PULSE 76; RESP 16; TEMP 36.8; O2SAT 95
[2024-05-20 05:29] LABS: Add Manual Diff / Slide Review NO; Basophils Absolute Auto 0 /uL (0-100); Basophils Percent Auto 0.2 % (0-2); Eosinophils Absolute Auto 100 /uL (0-450); Hematocrit 30.5 % (36-46); Hemoglobin 10.4 g/dL (12.0-16.0); Lymphocytes Absolute Auto 1000 /uL (1100-4500); Lymphocytes Percent Auto 10.6 % (25-40); Mean Corpuscular HGB Conc 34.2 % (30-36); Mean Corpuscular Hemoglobin 37.3 PG (26-34); Mean Corpuscular Volume 109.3 fL (80-100); Monocytes Absolute Auto 600 /uL (0-900); Monocytes Percent Auto 6.4 % (3-14); Neutrophils Absolute Auto 8000 /uL (1500-7000); Neutrophils Percent Auto 81.8 % (50-75); Platelet Count 213 X10^3/uL (150-400); Red Blood Cell Count 2.79 X10^6/uL (4.0-5.2); Red Cell Distribution Width 16.8 % (11.6-14.8); White Blood Cell Count 9.7 X10^3/uL (4.5-11.0)
[2024-05-20 05:44] LABS: Alanine Aminotransferase 26 IU/L (<35); Albumin 2.6 g/dL (3.5-5.0); Alkaline Phosphatase 91 U/L (38-126); Aspartate Aminotransferase 35 IU/L (14-36); BUN Creatinine Ratio 16.2 (6-22); Bilirubin Total 0.7 mg/dL (0.2-1.3); Blood Urea Nitrogen 6 mg/dL (7-17); Calcium 8.2 mg/dL (8.4-10.2); Carbon Dioxide 24 mmol/L (22-32); Chloride 106 mmol/L (98-107); Estimated Glomerular Filt Rate > 60 mL/min (>60); Globulin 2.5 g/dL (1.7-4.1); Glucose 96 mg/dL (70-100); HEMOLYSIS < 15 (0-50); Lipase 456 U/L (23-300); Potassium 3.1 mmol/L (3.4-5.1); Sodium 135 mmol/L (137-145); Total Protein 5.1 g/dL (6.3-8.2)
[2024-05-20 08:00] VITALS: BP 119/85; PULSE 61; RESP 16; TEMP 37.1; O2SAT 93
[2024-05-20 08:35] LABS: HEMOLYSIS 19 (0-50); Iron 37 ug/dL (37-170)
--- NOTE | 2024-05-20 08:37 | PM.PN.1 ---
Subjective Subjective Date Patient Seen: 05/20/24 Time Patient Seen: 08:37 Interval history: Patient seen in follow-up today. Pancreatitis, vomiting, anxiety, UTI. Had difficulty with all her pills yesterday. Otherwise no change or issues. Feeling a little better. Exam Vital Signs (past 8 hours): - 05/20/24 02:00 05/20/24 08:00 Temperature 98.2 F 98.7 F Pulse Rate 76 61 Respiratory Rate 16 16 Blood Pressure 126/85 119/85 Pulse Oximetry 95 93 Oxygen Flow Rate 0 0 Oxygen Delivery Method Room Air Oxygen Flow Rate 0 Narrative Exam Narrative: Alert female more alert. No acute distress Lungs are clear heart is regular rate and rhythm abdomen is soft positive slight tenderness. Objective Labs 05/20/24 05:10 05/20/24 05:10 Labs: Laboratory Results - last 24 hr 05/20/24 05:10 WBC 9.7 RBC 2.79 L Hgb 10.4 L Hct 30.5 L MCV 109.3 H MCH 37.3 H MCHC 34.2 RDW 16.8 H Plt Count 213 Neut % (Auto) 81.8 H Lymph % (Auto) 10.6 L [place] % (Auto) 6.4 Eos % (Auto) 1.0 L Baso % (Auto) 0.2 Neut # (Auto) 8000 H Lymph # (Auto) 1000 L [place] # (Auto) 600 Eos # (Auto) 100 Baso # (Auto) 0 Sodium 135 L Potassium 3.1 L Chloride 106 Carbon Dioxide 24 BUN 6 L Creatinine 0.37 L Estimated GFR > 60 BUN/Creatinine Ratio 16.2 Glucose 96 Calcium 8.2 L Iron 37 Total Bilirubin 0.7 AST 35 ALT 26 Alkaline Phosphatase 91 Total Protein 5.1 L Albumin 2.6 L Globulin 2.5 Albumin/Globulin Ratio 1.0 Lipase 456 H [facility] Medical History Irregular menstrual cycle (~2011) Esophagitis (~2006) Surgical History Hx of toe surgery (2006) Hx of wisdom tooth extraction (2011) Family History Father Age: 62 Hypertension Kidney disease Social History household members: spouse and children Smoking Status: Current every day smoker alcohol intake: current substance use type: does not use Assessment & Plan Assessment & Plan narrative: Pancreatitis. Improved. Feeling better. Still has not been able to keep everything down consistently. Will make some adjustments in her treatment and hopefully tomorrow she will be able to go home. Switch pain meds smaller pill Dilaudid. Do not think she will need a lot. Seems to be doing better. Abdominal pain slightly improved will switch to oral pantoprazole and continue as outpatient for at least 4-6 weeks. Elevated white count. Normalized. Probably secondary to UTI. Possible pyelonephritis but unclear no fever. Will continue to follow. But normalized. UTI. Patient struggling to take pills. Will continue Rocephin should be actually treated. Will repeat morning as outpatient. Dehydration. Improved. Will discontinue IV. Nausea and vomiting. Improved. Will follow. Alcohol use disorder. Patient feels she can quit. Clearly we need to treat her depression. Probably mostly social issues with housing. But will see how it goes. Support given. Depression. Will start Zoloft. No other changes. Follow up as outpatient. DVT prophylaxis on Lovenox. Disposition. Everything seems to be trending normal. If tolerates everything today can go home tomorrow. 50 minutes spent with the patient nursing dictation orders Time-Based Coding :: [TOTAL MINUTES] spent with patient and on the chart (including review of chart, obtaining history, exam, reviewing outside data, placing orders, documenting exam and treatment plan, and counseling patient) on [DATE]. Quality VTE Deep Vein Thrombosis/Pulmonary Embolism Present on Admission: No
[2024-05-20 08:45] LABS: Percent Iron Saturation 22 % (15-50); Total Iron Binding Capacity 167 ug/dL (265-497); Transferrin 125 mg/dL (206-381)
[2024-05-20 14:00] VITALS: BP 131/90; PULSE 67; RESP 16; TEMP 37.2; O2SAT 100
[2024-05-20] MEDS: cefTRIAXone 2,000 MG in SODIUM CHLORIDE 0.9% 100 ML 200 MG IV (14:17)
--- NOTE | 2024-05-20 15:51 | CM.DPNOTE ---
DCP Note BUSINESS TRAINER reviewed EMR. Per chart review, pt starting on Zoloft today. Per RN report, doing much better with n/v. BUSINESS TRAINER had very lengthy conversation with pt in room. discussed housing resources, per pt, they make just above the income threshold to qualify for a lot of the housing assistance options in the area. comm action, housing authority, etc. Lengthy MH/EMILIE conversation. Pt appears open to cessation of alcohol use but reports struggling with her partner's drinking in the house as well. Lengthy discussion about MH options, boundary setting, impacts of trauma, and various MH counseling options. Pt appreciative. P: anticipate dc home tomorrow with OP f/u recommended. CM team will continue to follow closely GERARDO Isbell
[2024-05-20 20:00] VITALS: BP 140/93; PULSE 73; RESP 24; TEMP 37; O2SAT 97; O2SAT 99
[2024-05-20] MEDS: ONDANSETRON 4 MG ODT SL (20:46)
[2024-05-21] VITALS (7 sets, daily range): BP systolic 122–128; BP diastolic 53–96; PULSE 69–78; RESP 16–24; TEMP 36.6–37.1; O2SAT 96–100
[2024-05-21] MEDS: HYDROMORPHONE 2 MG TABLET PO (04:43)
[2024-05-21] MEDS: ONDANSETRON 4 MG ODT SL (04:43)
[2024-05-21 05:49] LABS: Add Manual Diff / Slide Review NO; Basophils Absolute Auto 0 /uL (0-100); Basophils Percent Auto 0.2 % (0-2); Eosinophils Absolute Auto 100 /uL (0-450); Eosinophils Percent Auto 1.5 % (2-4); Hematocrit 34.2 % (36-46); Hemoglobin 11.6 g/dL (12.0-16.0); Lymphocytes Absolute Auto 900 /uL (1100-4500); Lymphocytes Percent Auto 12.8 % (25-40); Mean Corpuscular HGB Conc 33.9 % (30-36); Mean Corpuscular Hemoglobin 36.7 PG (26-34); Mean Corpuscular Volume 108.1 fL (80-100); Monocytes Absolute Auto 500 /uL (0-900); Monocytes Percent Auto 7.2 % (3-14); Neutrophils Absolute Auto 5300 /uL (1500-7000); Neutrophils Percent Auto 78.3 % (50-75); Platelet Count 234 X10^3/uL (150-400); Red Blood Cell Count 3.16 X10^6/uL (4.0-5.2); Red Cell Distribution Width 16.8 % (11.6-14.8); White Blood Cell Count 6.8 X10^3/uL (4.5-11.0)
[2024-05-21 05:56] LABS: Lipase 1035 U/L (23-300)
[2024-05-21 05:59] LABS: Alanine Aminotransferase 56 IU/L (<35); Albumin 2.8 g/dL (3.5-5.0); Alkaline Phosphatase 127 U/L (38-126); Aspartate Aminotransferase 101 IU/L (14-36); BUN Creatinine Ratio 9.1 (6-22); Bilirubin Total 0.7 mg/dL (0.2-1.3); Blood Urea Nitrogen 3 mg/dL (7-17); Calcium 8.5 mg/dL (8.4-10.2); Carbon Dioxide 25 mmol/L (22-32); Chloride 105 mmol/L (98-107); Estimated Glomerular Filt Rate > 60 mL/min (>60); Globulin 2.7 g/dL (1.7-4.1); Glucose 95 mg/dL (70-100); HEMOLYSIS < 15 (0-50); Sodium 136 mmol/L (137-145); Total Protein 5.5 g/dL (6.3-8.2)
[2024-05-21] MEDS: SENNOSIDES 8.6 MG TABLET 17.2 MG PO (06:50)
[2024-05-21] MEDS: polyethylene glycoL 3350 17 GM POWD.PACK PO (06:50)
[2024-05-21] MEDS: PANTOPRAZOLE 40 MG VIAL IV ×2 (09:43→21:33)
[2024-05-21] MEDS: POTASSIUM CHLORIDE IN WATER 10 MEQ/100 ML PIGGYBACK 100 MEQ IV ×6 (09:43→15:38)
[2024-05-21] MEDS: SODIUM CHLORIDE 0.9% 1,000 ML 125 ML IV ×2 (09:44→18:12)
--- NOTE | 2024-05-21 10:10 | DIET.PN1 ---
Dietary Progress Note Assessment: Pt's diet switched back to clears today. Lipase rising again. Started back on fluids. Nutrition Diagnosis: 1. Severe acute protein calorie malnutrition related to lack of appetite as evidenced by 11% weight loss within 3 months (severe), 50% or less estimated energy intakes for 2-3 months per diet recall (severe), pt experiencing social/environmental stressors that results in daily nausea, excessive alcohol intake (2-3 drinks/day) 2. Altered GI function r/t compromised exocrine function of related GI organs aeb pancreatitis Interventions: 1. Diet advancement per MD, as tolerated 2. Ensure clears at meals EER: [id number] kcals (25-30 kcals per BMI) 65-75 g protein (1.25 g per PCM) Will f/u on Friday. Ht: 170.18 cm Wt: 58.6 kg BMI: 18.8 UBW: 56.8-59.1 kg (125-130 lb) per pt (-11-14.5% weight loss within 3 months, severe) Last BM: 05/15/24 (05/16/24 17:59) MNA: 7 Lee Score: 23 Diet: 05/20/24 Lunch General (Regular) Diet Diet Modifications: Food Texture: Level 7 - Regular Liquid Consistency: Level 0 - Thin 05/21/24 Lunch Clear Liquid Diet Diet Modifications: Labs: RBC 3.16 X10^6/uL (4.0-5.2) L 05/21/24 05:25 Hgb 11.6 g/dL (12.0-16.0) L 05/21/24 05:25 Hct 34.2 % (36-46) L 05/21/24 05:25 Creatinine 0.33 mg/dL (0.52-1.04) L 05/21/24 05:25 Iron 37 ug/dL (37-170) 05/20/24 05:10 % Saturation 22 % (15-50) 05/20/24 05:10 Electronically Signed by: Lita Delvalle 05/21/24 10:10 Clinical Dietitian [address] [address]
--- NOTE | 2024-05-21 10:19 | P.PN_ITS ---
<Statement entered by Maury Kc MD - 05/21/24 15:27> Please see my full consultation report. Subjective Subjective Interval history: Had a flare of nausea without emesis last night, attributes this to anxiety related to an acute issue of IV dysfunction, as well as the chronic stressor of being away from her young daughter. Nausea continues unchanged, it is mild at this point but she only had half a jello cup last night for dinner from nausea. Abdomen is overall unchanged, no acute pain and had some improvement in cramping/distension post flatulence following miralax/senna this AM. Hasn't had a bowel movement since 05/16 but notes she's been on many different diet regimens since then and she has chronic constipation at baseline. Denies lower urinary tract sx, no abnormalities with urinary function. Continues to express motivation to decrease alcohol use as outpatient. Exam Vital Signs (past 8 hours): - 05/21/24 04:15 05/21/24 05:11 05/21/24 08:00 Temperature 98.0 F 98 F Pulse Rate 70 69 Respiratory Rate 24 18 Blood Pressure 127/93 H 128/96 H Pulse Oximetry 100 98 Oxygen Delivery Method Room Air Oxygen Flow Rate 0 0 05/21/24 08:55 Temperature Pulse Rate Respiratory Rate Blood Pressure Pulse Oximetry 100 Oxygen Delivery Method Room Air Oxygen Flow Rate Oxygen Delivery Method Room Air Oxygen Flow Rate 0 Narrative Exam Narrative: benign abdominal exam Const Other: sitting in hospital bed, no acute distress. looks mildly fatigued HENWA Other: moist mucous membranes Cardio Other: regular rate and rhythm, slightly bradycardic. no murmurs GI Other: abdomen mildly distended. tender with deep palpation in RUQ/RLQ,LLQ, nontender LUQ. negative hannon's sign Other: no suprapubic tenderness Skin Other: no tenting Neuro Other: AOx3 Psych Other: speech and movement are normal. sad affect and borderline tearful with topic of daughter. fidgets with her necklace, anxious facial expression intermittently. positive and future-oriented attitude regarding hospitalization and outpatient care. no lability. intact insight and judgment. Objective Labs 05/21/24 05:25 05/21/24 05:25 Labs: Laboratory Results - last 24 hr 05/21/24 05:25 WBC 6.8 RBC 3.16 L Hgb 11.6 L Hct 34.2 L MCV 108.1 H MCH 36.7 H MCHC 33.9 RDW 16.8 H Plt Count 234 Neut % (Auto) 78.3 H Lymph % (Auto) 12.8 L [place] % (Auto) 7.2 Eos % (Auto) 1.5 L Baso % (Auto) 0.2 Neut # (Auto) 5300 Lymph # (Auto) 900 L [place] # (Auto) 500 Eos # (Auto) 100 Baso # (Auto) 0 Sodium 136 L Potassium 3.0 L Chloride 105 Carbon Dioxide 25 BUN 3 L Creatinine 0.33 L Estimated GFR > 60 BUN/Creatinine Ratio 9.1 Glucose 95 Calcium 8.5 Total Bilirubin 0.7 AST 101 H ALT 56 H Alkaline Phosphatase 127 H Total Protein 5.5 L Albumin 2.8 L Globulin 2.7 Albumin/Globulin Ratio 1.0 Lipase 1035 H D PFSH Medical History Irregular menstrual cycle (~2011) Esophagitis (~2006) Surgical History Hx of toe surgery (2006) Hx of wisdom tooth extraction (2011) Family History Father Age: 62 Hypertension Kidney disease Social History household members: spouse and children Smoking Status: Current every day smoker alcohol intake: current substance use type: does not use Assessment & Plan Assessment & Plan narrative: Jaclyn Parkinson is a 29 year old female patient who is HOD#6 for acute pancreatitis with overall improved abdominal pain and N/V, continued poor PO intake secondary to nausea, with acute increase in lipase and LFTs overnight. Pancreatitis - abdominal exam continues to be benign, only discomfort on dilaudid. overnight increase in labs including lipase significant increase from 400s to 1000 (has been downtrending over past few days), AST/ALT 101/56 and alk phos 127. Starting IV protonix, fluids, and potassium. Clear liquids diet. N/V - continues to have mild nausea at baseline without emesis, related anorexia yesterday. nausea flares with emotional stressors, consider hydroxyzine Leukocytosis - downtrending. continue to monitor UTI - Day 3 of rocephin, course completed. not having any urinary sx Dehydration - IV fluids started Time-Based Coding :: [TOTAL MINUTES] spent with patient and on the chart (including review of chart, obtaining history, exam, reviewing outside data, placing orders, documenting exam and treatment plan, and counseling patient) on [DATE]. Quality VTE Deep Vein Thrombosis/Pulmonary Embolism Present on Admission: No
[2024-05-21] MEDS: cefTRIAXone 2,000 MG in SODIUM CHLORIDE 0.9% 100 ML 200 MG IV (12:15)
[2024-05-21 12:54] LABS: Triglycerides 110 mg/dL (35-150)
--- NOTE | 2024-05-21 13:32 | PM.HP.1 ---
History of Present Illness History of Present Illness Chief complaint: vomiting, nausea, stomach cramping PFSH Medical History Irregular menstrual cycle (~2011) Esophagitis (~2006) Surgical History Hx of toe surgery (2006) Hx of wisdom tooth extraction (2011) Family History Father Age: 62 Hypertension Kidney disease Social History household members: spouse and children Smoking Status: Current every day smoker alcohol intake: current substance use type: does not use Meds Home Medications and Allergies Home Medications Medication Instructions Recorded Confirmed Type No Known Home Medications 05/16/24 05/16/24 History Allergies Allergy/AdvReac Type Severity Reaction Status Date / Time No Known Drug Allergies Allergy Verified 05/16/24 11:26 Exam Vital Signs (past 8 hours): - 05/21/24 08:00 05/21/24 08:55 05/21/24 10:00 Temperature 98 F Pulse Rate 69 Respiratory Rate 18 Blood Pressure 128/96 H Pulse Oximetry 98 100 Oxygen Delivery Method Room Air Room Air Oxygen Flow Rate 0 Oxygen Delivery Method Room Air Oxygen Flow Rate 0 Objective Labs 05/21/24 05:25 05/21/24 05:25 Labs: Laboratory Results - last 24 hr 05/21/24 05:25 WBC 6.8 RBC 3.16 L Hgb 11.6 L Hct 34.2 L MCV 108.1 H MCH 36.7 H MCHC 33.9 RDW 16.8 H Plt Count 234 Neut % (Auto) 78.3 H Lymph % (Auto) 12.8 L [place] % (Auto) 7.2 Eos % (Auto) 1.5 L Baso % (Auto) 0.2 Neut # (Auto) 5300 Lymph # (Auto) 900 L [place] # (Auto) 500 Eos # (Auto) 100 Baso # (Auto) 0 Sodium 136 L Potassium 3.0 L Chloride 105 Carbon Dioxide 25 BUN 3 L Creatinine 0.33 L Estimated GFR > 60 BUN/Creatinine Ratio 9.1 Glucose 95 Calcium 8.5 Total Bilirubin 0.7 AST 101 H ALT 56 H Alkaline Phosphatase 127 H Total Protein 5.5 L Albumin 2.8 L Globulin 2.7 Albumin/Globulin Ratio 1.0 Triglycerides 110 Lipase 1035 H D Assessment & Plan Time-Based Coding :: [TOTAL MINUTES] spent with patient and on the chart (including review of chart, obtaining history, exam, reviewing outside data, placing orders, documenting exam and treatment plan, and counseling patient) on [DATE]. Quality VTE Deep Vein Thrombosis/Pulmonary Embolism Present on Admission: No
--- NOTE | 2024-05-21 13:49 | DI.US.S_ITS ---
PROCEDURE: US ABDOMEN LIMITED INDICATIONS: pancreat TECHNIQUE: Real-time focused scanning was performed of the abdomen, with image documentation. COMPARISON: [facility], CT, CT ABDOMEN PELVIS W CON, 05/16/2024, 13:23. FINDINGS: Liver demonstrates steatosis. Gallbladder demonstrates mobile echogenic foci. Wall thickness is normal measuring 2.1 mm. Common bile duct measures 4.7 mm. Pancreas is unremarkable. IMPRESSION: Cholelithiasis without cholecystitis. Pancreas is not visualized. Dictated by: Winter Torres M.D. on 05/21/2024 at 16:20 Approved by: Winter Torres M.D. on 05/21/2024 at 16:21
--- NOTE | 2024-05-21 15:28 | PM.CN ---
History of Present Illness Consult details Date Patient Seen: 05/21/24 Time Patient Seen: 15:28 Chief complaint: vomiting, nausea, stomach cramping Reason for consult: pancreatitis Requesting provider: Vidya Adkins Narrative: This is a 29-year-old white female admitted 5 days ago with hypernatremia elevated pancreatic enzymes and a CT scan showing edema and fluid around the pancreas. She admits to consuming alcoholic beverages 7 days ago, 2-1/2 12 oz drinks of 8% alcohol. This has been so far blamed as the cause of her pancreatitis. The initial CT scan did not show gallstones or ductal dilatation. Her pancreatic enzymes had improved but went up again this morning. Ultrasound performed today shows sludge but no stones. No ductal dilatation. She feels well overall, and would like to eat. She states that she had poor appetite for breakfast this morning but that is improving. Meds Home Medications and Allergies Home Medications Medication Instructions Recorded Confirmed Type No Known Home Medications 05/16/24 05/16/24 History Allergies Allergy/AdvReac Type Severity Reaction Status Date / Time No Known Drug Allergies Allergy Verified 05/16/24 11:26 Review of Systems Review of Systems ROS: Yes All systems reviewed with the patient and are negative except as otherwise documented Constitutional Constitutional: Reports system reviewed and no additional complaints, except as documented, Denies fever(s), Reports malaise and Reports poor appetite Eyes Eyes: Reports system reviewed and no additional complaints, except as documented ENT Ears, Nose, Mouth, and Throat: Yes system reviewed and no additional complaints, except as documented Cardiovascular Cardiovascular: Reports system reviewed and no additional complaints, except as documented Respiratory Respiratory: Reports system reviewed and no additional complaints, except as documented Gastrointestinal Gastrointestinal: Denies abdominal pain, Denies change in stool character, Denies cramping and Reports early satiety Genitourinary Genitourinary: Reports system reviewed and no additional complaints, except as documented Musculoskeletal Musculoskeletal: Reports system reviewed and no additional complaints, except as documented Integumentary/Breasts Skin/Breast: Reports system reviewed and no additional complaints, except as documented Neurologic Neurologic: Reports system reviewed and no additional complaints, except as documented Psychiatric Psychiatric: Reports system reviewed and no additional complaints, except as documented Endocrine Endocrine: Reports system reviewed and no additional complaints, except as documented Hematologic/Lymphatic Hematologic/Lymphatic: Reports system reviewed and no additional complaints, except as documented Allergic/Immunologic Allergic/Immunologic: Reports system reviewed and no additional complaints, except as documented Exam Vital Signs (past 8 hours): - 05/21/24 08:00 05/21/24 08:55 05/21/24 10:00 Temperature 98 F Pulse Rate 69 Respiratory Rate 18 Blood Pressure 128/96 H Pulse Oximetry 98 100 Oxygen Delivery Method Room Air Room Air Oxygen Flow Rate 0 Oxygen Delivery Method Room Air Oxygen Flow Rate 0 Narrative Exam Narrative: Gen: NAD, sitting comfortably in bed, appears well HEENT: Sclera are anicteric, head is normocephalic and atraumatic, trachea is midline. CV: RRR, no JVD Resp: clear to auscultation bilaterally, equal chest wall movement bilaterally Abd: soft, nontender, normoactive bowel sounds Ext: no edema, full range of motion Neuro: Cranial nerves II-XII grossly intact, no focal deficits Skin: No erythema or ecchymosis Objective Imaging US - abdomen: My impression: I was present during the technologists ultrasound. She has layering sludge in the gallbladder, but no stones, no gallbladder wall thickening, no ductal dilatation. Labs 05/21/24 05:25 05/21/24 05:25 Labs: Laboratory Results - last 24 hr 05/21/24 05:25 WBC 6.8 RBC 3.16 L Hgb 11.6 L Hct 34.2 L MCV 108.1 H MCH 36.7 H MCHC 33.9 RDW 16.8 H Plt Count 234 Neut % (Auto) 78.3 H Lymph % (Auto) 12.8 L [place] % (Auto) 7.2 Eos % (Auto) 1.5 L Baso % (Auto) 0.2 Neut # (Auto) 5300 Lymph # (Auto) 900 L [place] # (Auto) 500 Eos # (Auto) 100 Baso # (Auto) 0 Sodium 136 L Potassium 3.0 L Chloride 105 Carbon Dioxide 25 BUN 3 L Creatinine 0.33 L Estimated GFR > 60 BUN/Creatinine Ratio 9.1 Glucose 95 Calcium 8.5 Total Bilirubin 0.7 AST 101 H ALT 56 H Alkaline Phosphatase 127 H Total Protein 5.5 L Albumin 2.8 L Globulin 2.7 Albumin/Globulin Ratio 1.0 Triglycerides 110 Lipase 1035 H D [facility] [place] Medical History Irregular menstrual cycle (~2011) Esophagitis (~2006) Surgical History Hx of toe surgery (2007) Hx of wisdom tooth extraction (2011) Family History Father Age: 62 Hypertension Kidney disease Social History household members: spouse and children Tobacco & Substance Use Smoking Status: Current every day smoker alcohol intake: current substance use type: does not use Assessment & Plan Assessment and plan (1) Pancreatitis: Qualifiers: Acute pancreatitis complication: unspecified Chronicity: acute Pancreatitis type: unspecified pancreatitis type Qualified Code(s): K85.90 - Acute pancreatitis without necrosis or infection, unspecified Status: Acute Assessment & Plan narrative: This is presumed to be alcoholic pancreatitis. Gallbladder sludge without stones is an equivocal finding as a cause for pancreatitis. I told the patient that I am ambivalent as to whether or not she have her gallbladder removed, but given that she feels well and wants to eat I think it is reasonable to repeat her labs in the morning. I explained to her that in some cases, chronic pancreatitis may develop into ductal abnormalities or pseudocyst which can cause persistently increased pancreatic enzymes. If her enzymes are still elevated tomorrow, it is reasonable to repeat her CT scan to re-evaluate the tail of the pancreas. On the initial CT scan, my independent review of the pancreas as it appears to be surrounded with fluid and hypoperfused in the tail. Time-Based Coding :: [TOTAL MINUTES] spent with patient and on the chart (including review of chart, obtaining history, exam, reviewing outside data, placing orders, documenting exam and treatment plan, and counseling patient) on [DATE]. PROFEE Charge Codes Inpatient or Observation consultation: 41587
--- NOTE | 2024-05-21 17:34 | P.PN_ITS ---
Subjective <[facility] - Last Filed: 05/21/24 17:50> Subjective Interval history: Nausea continues with no emesis, improved from this morning. She is trying to eat, currently on regular diet. Appetite was suppressed last night from moderate nausea and now from being NPO all day for US. No new urinary sx. Expresses anxiety related to leaving her daughter at home with other family members taking care of her. Endorses nausea and abdominal pain flares at night, possibly associated with anxiety. Exam <[facility] - Last Filed: 05/21/24 17:50> Vital Signs (past 8 hours): - 05/21/24 10:00 Oxygen Delivery Method Room Air Oxygen Delivery Method Room Air Oxygen Flow Rate 0 Narrative Exam Narrative: abdominal exam soft and no guarding, tenderness with deep palpation diffusely over all quadrants, distension Const Other: laying in bed, looks comfortable with no acute distress Cardio Other: regular rate and rhythm Neuro Other: aox3 Psych Other: speech and movement normal. sad affect when talking about her daughter, borderline tearful when topic is brought up. insight and judgment intact. no emotional lability. <Vidya Adkins MD - Last Filed: 05/21/24 18:24> Chest Other: CTA bilaterally Skin Other: no rash Objective <[facility] - Last Filed: 05/21/24 17:50> Imaging US - abdomen: My impression: no gallstones seen. sludge present. Labs 05/21/24 05:25 05/21/24 05:25 Labs: Laboratory Results - last 24 hr 05/21/24 05:25 WBC 6.8 RBC 3.16 L Hgb 11.6 L Hct 34.2 L MCV 108.1 H MCH 36.7 H MCHC 33.9 RDW 16.8 H Plt Count 234 Neut % (Auto) 78.3 H Lymph % (Auto) 12.8 L [place] % (Auto) 7.2 Eos % (Auto) 1.5 L Baso % (Auto) 0.2 Neut # (Auto) 5300 Lymph # (Auto) 900 L [place] # (Auto) 500 Eos # (Auto) 100 Baso # (Auto) 0 Sodium 136 L Potassium 3.0 L Chloride 105 Carbon Dioxide 25 BUN 3 L Creatinine 0.33 L Estimated GFR > 60 BUN/Creatinine Ratio 9.1 Glucose 95 Calcium 8.5 Total Bilirubin 0.7 AST 101 H ALT 56 H Alkaline Phosphatase 127 H Total Protein 5.5 L Albumin 2.8 L Globulin 2.7 Albumin/Globulin Ratio 1.0 Triglycerides 110 Lipase 1035 H D <Vidya Adkins MD - Last Filed: 05/21/24 18:24> Imaging US - abdomen: My impression: gallstones seen. sludge present. PFSH <[facility] - Last Filed: 05/21/24 17:50> Medical History Irregular menstrual cycle (~2011) Esophagitis (~2006) Surgical History Hx of toe surgery (2006) Hx of wisdom tooth extraction (2011) Family History Father Age: 62 Hypertension Kidney disease Social History household members: spouse and children Smoking Status: Current every day smoker alcohol intake: current substance use type: does not use Assessment & Plan <[facility] - Last Filed: 05/21/24 17:50> Assessment and plan Plan 29y F on HOD#6 for acute pancreatitis with downtrending labs and clinical improvement in nausea and pain but overnight rise in LFTs and lipase to 1000 from 400. dehydration - IV fluids diet - advancing as tolerated, currently on regular. bowel reg now scheduled N/V - controlled with ondansetron, lorazepam for breakthrough nausea low K - repleted with drip today, recheck labs tomorrow anxiety/depression - qd sertraline, lorazepam prn. outpatient fu with counseling pancreatitis - clinically better with benign abd exam but elevated lipase (400s to 1000) and LFTs today. IV pantoprazole restarted, recheck labs tomorrow. Abd US performed and no gallstones seen. Consider further imaging tomorrow. UTI - rocephin course finished today, no urinary sx AUD - outpatient fu DVT prophylaxis - continue with current management Time-Based Coding :: [TOTAL MINUTES] spent with patient and on the chart (including review of chart, obtaining history, exam, reviewing outside data, placing orders, documenting exam and treatment plan, and counseling patient) on [DATE]. <Vidya Adkins MD - Last Filed: 05/21/24 18:24> Assessment & Plan narrative: 29y F on HOD#6 for acute pancreatitis with downtrending labs and clinical improvement in nausea and pain but overnight rise in LFTs and lipase to 1000 from 400. dehydration - IV fluids diet - advancing as tolerated, currently on regular. bowel reg now scheduled N/V - controlled with ondansetron, lorazepam for breakthrough nausea low K - repleted with drip today, recheck labs tomorrow anxiety/depression - qd sertraline, lorazepam prn. outpatient fu with counseling pancreatitis - clinically better with benign abd exam but elevated lipase (400s to 1000) and LFTs today. IV pantoprazole restarted, recheck labs tomorrow. Abd US performed and gallstones seen. Consider further imaging tomorrow. UTI - rocephin course finished today, no urinary sx AUD - outpatient fu DVT prophylaxis - continue with current management Addendum: Patient hospital day 6. For acute pancreatitis thought to be secondary to alcohol. However patient increased p.o. intake yesterday and subsequent significant elevation in lipase and LFTs. Also patient feeling worse. Due to this abdominal ultrasound was done to rule out cholelithiasis. Surgery was consulted and did not feel that the ultrasound was consistent with cholelithiasis but was more sludge. Dr. Xie, general surgery, did not feel that surgery was indicated at this time. We will continue with current IV fluids,pantoprazole, pain management, p.o. intake and will reassess labs in the morning. If LFTs and lipase still significantly elevated then will proceed with CT scan of the abdomen to rule out abscess, pancreatic cyst or necrotizing pancreatitis Code status is full code 65 minutes was spent with patient in reviewing chart, discussing with physician, nursing and seeing patient twice during the day, formulating a plan and documentation Quality <Siri - Last Filed: 05/21/24 17:50> VTE Deep Vein Thrombosis/Pulmonary Embolism Present on Admission: No
[2024-05-21 17:55] LABS: HEMOLYSIS < 15 (0-50); Potassium 3.6 mmol/L (3.4-5.1)
[2024-05-21] MEDS: LORazepam 0.5 MG TABLET PO (21:33)
[2024-05-21] MEDS: SERTRALINE 50 MG TABLET PO (21:33)
[2024-05-21] MEDS: HYDROMORPHONE 2 MG TABLET 1 MG PO (21:34)
[2024-05-22] VITALS (7 sets, daily range): BP systolic 125–138; BP diastolic 87–95; PULSE 65–78; RESP 16–18; TEMP 36.2–37.1; O2SAT 96–98
[2024-05-22] MEDS: HYDROMORPHONE 2 MG TABLET PO ×2 (02:32→21:30)
[2024-05-22] MEDS: LORazepam 0.5 MG TABLET PO ×3 (02:32→21:30)
[2024-05-22] MEDS: SODIUM CHLORIDE 0.9% 1,000 ML 125 ML IV ×3 (02:50→22:51)
[2024-05-22 05:39] LABS: Add Manual Diff / Slide Review NO; Basophils Absolute Auto 0 /uL (0-100); Basophils Percent Auto 0.5 % (0-2); Eosinophils Absolute Auto 200 /uL (0-450); Eosinophils Percent Auto 2.8 % (2-4); Hematocrit 30.2 % (36-46); Hemoglobin 10.4 g/dL (12.0-16.0); Lymphocytes Absolute Auto 1100 /uL (1100-4500); Lymphocytes Percent Auto 20.3 % (25-40); Mean Corpuscular HGB Conc 34.6 % (30-36); Mean Corpuscular Hemoglobin 37.2 PG (26-34); Mean Corpuscular Volume 107.7 fL (80-100); Monocytes Absolute Auto 400 /uL (0-900); Monocytes Percent Auto 7.9 % (3-14); Neutrophils Absolute Auto 3800 /uL (1500-7000); Neutrophils Percent Auto 68.5 % (50-75); Platelet Count 213 X10^3/uL (150-400); Red Cell Distribution Width 16.7 % (11.6-14.8); White Blood Cell Count 5.5 X10^3/uL (4.5-11.0)
[2024-05-22 05:51] LABS: Alanine Aminotransferase 67 IU/L (<35); Albumin 2.8 g/dL (3.5-5.0); Alkaline Phosphatase 123 U/L (38-126); Amylase 111 U/L (30-110); Aspartate Aminotransferase 89 IU/L (14-36); Bilirubin Total 0.5 mg/dL (0.2-1.3); Calcium 8.4 mg/dL (8.4-10.2); Carbon Dioxide 25 mmol/L (22-32); Chloride 108 mmol/L (98-107); Estimated Glomerular Filt Rate > 60 mL/min (>60); Globulin 2.7 g/dL (1.7-4.1); Glucose 104 mg/dL (70-100); HEMOLYSIS < 15 (0-50); Lipase 929 U/L (23-300); Potassium 3.4 mmol/L (3.4-5.1); Sodium 136 mmol/L (137-145); Total Protein 5.5 g/dL (6.3-8.2)
[2024-05-22 05:56] LABS: BUN Creatinine Ratio 6.7 (6-22); Blood Urea Nitrogen < 2 mg/dL (7-17)
[2024-05-22] MEDS: HYDROMORPHONE 2 MG TABLET 1 MG PO (08:32)
[2024-05-22] MEDS: POTASSIUM CHLORIDE IN WATER 10 MEQ/100 ML PIGGYBACK 100 MEQ IV ×2 (08:35→09:52)
[2024-05-22] MEDS: PANTOPRAZOLE 40 MG VIAL IV ×2 (08:36→21:30)
--- NOTE | 2024-05-22 11:06 | DI.CT.S_ITS ---
PROCEDURE: CT ABDOMEN PELVIS W CON INDICATIONS: persistent elevation lipase/liver enzymes TECHNIQUE: After the administration of intravenous contrast, axial sections acquired from the lung bases to the pubic symphysis. Coronal and sagittal reformats were performed. For radiation dose reduction, the following was used: automated exposure control, adjustment of mA and/or kV according to patient size. COMPARISON: [facility], CT, CT ABDOMEN PELVIS W CON, 05/16/2024, 13:23. [facility], US, US ABDOMEN LIMITED, 05/21/2024, 15:11. FINDINGS: Image quality: Diagnostic. Lower Chest: Small bilateral pleural effusions are seen. ABDOMEN: Liver: No solid mass. Areas of decreased liver enhancement can be seen. Gallbladder: No radiopaque gallstones or wall thickening. Biliary ducts: No biliary dilation. Pancreas: There is significant inflammatory change seen surrounding the distal body and tail of the pancreas. No pancreatic duct dilatation can be seen. Spleen: Size is within normal limits. Adrenal Glands: No adrenal nodules. Kidneys and Ureters: No hydronephrosis. No solid mass. No complex renal cystic lesion which requires follow up. Stomach and Bowel: Normal colonic caliber, without significant wall thickening. No dilated loops of small bowel are seen. Peritoneum: A small amount of layering ascites is seen within the pelvis. No free air. Ventral Wall: No significant ventral hernia. Abdominal Nodes: No retroperitoneal or mesenteric adenopathy by size criteria. Vessels: There is partial thrombosis seen within the splenic vein, as on series 2 images 40 through 43. Aorta and inferior vena cava are normal in size. PELVIS: Pelvic Organs: No adnexal masses are seen on either side. Tampon artifact is incidentally noted. Bladder: [id number] generalized bladder wall thickening can be seen. Pelvic Nodes: No enlarged lymph nodes. Miscellaneous: No inguinal hernias are seen. Bones: No aggressive osseous abnormality. IMPRESSION: Continued pancreatitis, which is overall improved compared to the prior examination. Partial thrombosis can be seen within the splenic vein. Areas of decreased enhancement can be seen within the liver. Regional fatty infiltration is suspected, although the imaging appearance is nonspecific. There is a small amount of ascites. [id number] generalized bladder wall thickening can be seen. Please correlate with potential cystitis. Dictated by: Greg Philip M.D. on 05/22/2024 at 11:02 Approved by: Greg Philip M.D. on 05/22/2024 at 11:05
--- NOTE | 2024-05-22 11:30 | PM.PN.1 ---
Subjective Subjective Date Patient Seen: 05/22/24 Interval history: The pt reports feeling minimally improved this morning. She continues to have abdominal pain, worse at night, but this is controlled by the pain medication provided. She denies any further nausea, and has been able to eat small meals without issues. She states that she has had a couple looser BMs, no blood in them, and they are starting to look more like normal. Exam Vital Signs (past 8 hours): - 05/22/24 06:00 05/22/24 07:00 05/22/24 08:28 Temperature 98 F 97.2 F L Pulse Rate 78 65 Respiratory Rate 18 16 Blood Pressure 134/95 H 138/91 H Pulse Oximetry 98 98 98 Oxygen Delivery Method Room Air Oxygen Flow Rate 0 Oxygen Delivery Method Room Air Oxygen Flow Rate 0 Narrative Exam Narrative: Gen: NAD, sitting comfortably in bed CV: RRR, no murmurs Resp: clear to auscultation bilaterally Abd: soft, nontender, nondistended, hypoactive bowel sounds, no guarding/rebound/rigidity, no masses Ext: no edema Objective Labs 05/22/24 05:20 05/22/24 05:20 Labs: Laboratory Results - last 24 hr 05/21/24 05/21/24 05/22/24 05:25 17:40 05:20 WBC 5.5 RBC 2.80 L Hgb 10.4 L Hct 30.2 L MCV 107.7 H MCH 37.2 H MCHC 34.6 RDW 16.7 H Plt Count 213 Neut % (Auto) 68.5 Lymph % (Auto) 20.3 L [place] % (Auto) 7.9 Eos % (Auto) 2.8 Baso % (Auto) 0.5 Neut # (Auto) 3800 Lymph # (Auto) 1100 [place] # (Auto) 400 Eos # (Auto) 200 Baso # (Auto) 0 Sodium 136 L Potassium 3.6 3.4 Chloride 108 H Carbon Dioxide 25 BUN < 2 L Creatinine 0.30 L Estimated GFR > 60 BUN/Creatinine Ratio 6.7 Glucose 104 H Calcium 8.4 Total Bilirubin 0.5 AST 89 H ALT 67 H Alkaline Phosphatase 123 Total Protein 5.5 L Albumin 2.8 L Globulin 2.7 Albumin/Globulin Ratio 1.0 Triglycerides 110 Amylase 111 H Lipase 929 H PFSH Medical History Irregular menstrual cycle (~2011) Esophagitis (~2006) Surgical History Hx of toe surgery (2006) Hx of wisdom tooth extraction (2011) Family History Father Age: 62 Hypertension Kidney disease Social History household members: spouse and children Smoking Status: Current every day smoker alcohol intake: current substance use type: does not use Assessment & Plan Assessment & Plan narrative: 29y F on HOD#7 for acute pancreatitis with clinical improvement in symptoms, however yesterday with acute rise in lipase and liver enzymes - unclear cause. 1) Acute pancreatitis: Thought to be due to alcohol consumption. Lipase improved from yesterday very minimally. Liver enzymes with improvement in AST but rising ALT. U/S yesterday showed cholelithiasis but no cholecystitis. - Surgery consulted, appreciate recommendations - As per discussion yesterday, will order CT abd/pelvis due to no significant improvement in labs to evaluate for possible abscess, pancreatic cyst, or necrotizing pancreatitis - Continue dilaudid for pain control, Zofran - Consider transition to PO pain medications dependent on results of CT scan 2) Dehydration: Improved, tolerating sips of liquids - Continue mIVF for now 3) Hyponatremia: Resolved 4) Anxiety/depression: Stable - Continue home Sertraline - Lorazepam PRN 5) UTI: Completed Ceftriaxone course. Asymptomatic. 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 Quality VTE Deep Vein Thrombosis/Pulmonary Embolism Present on Admission: No IH PROFEE Charge codes Subsequent inpatient/observation care: [id number]
--- NOTE | 2024-05-22 11:40 | CM.DPNOTE ---
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 per chart review, pt remained another day due to low potassium. Pt back on reg diet now. Per RN report, no N/V today. Per surgical consult note, may repeat CT today pending on enzyme levels. no surgical intervention recommended at this time but they will continue to monitor. P: anticipate dc home when medically stable with OP f/u recommended. CM team will continue to follow closely for any additional DCP needs that may arise. GERARDO Isbell
--- NOTE | 2024-05-22 13:06 | PM.PN.1 ---
Subjective Subjective Date Patient Seen: 05/22/24 Time Patient Seen: 13:06 Interval history: Patient has persistently elevated LFTs and lipase. Repeat CT scan shows splenic vein thrombosis. US was read as cholelithiasis, rather than just sludge as previously reported by the tech. Patient is eating pasta for lunch, with minimal appetite. Exam Vital Signs (past 8 hours): - 05/22/24 06:00 05/22/24 07:00 05/22/24 08:28 Temperature 98 F 97.2 F L Pulse Rate 78 65 Respiratory Rate 18 16 Blood Pressure 134/95 H 138/91 H Pulse Oximetry 98 98 98 Oxygen Delivery Method Room Air Oxygen Flow Rate 0 Oxygen Delivery Method Room Air Oxygen Flow Rate 0 Const General: cooperative and comfortable HENMT Head: normal to inspection Eyes Sclera: sclerae normal Neck Neck: normal visual inspection Resp Effort & Inspection: normal respiratory effort Cardio Rate: regular rate GI Inspection: normal to inspection Palpation: No guarding, No rigid and tender Back/Spine/Pelvis Back: normal to inspection Skin General: no rashes or lesions noted Neuro General: patient alert, patient awake and patient oriented x3 Objective Labs 05/22/24 05:20 05/22/24 05:20 Labs: Laboratory Results - last 24 hr 05/21/24 05/22/24 17:40 05:20 WBC 5.5 RBC 2.80 L Hgb 10.4 L Hct 30.2 L MCV 107.7 H MCH 37.2 H MCHC 34.6 RDW 16.7 H Plt Count 213 Neut % (Auto) 68.5 Lymph % (Auto) 20.3 L [place] % (Auto) 7.9 Eos % (Auto) 2.8 Baso % (Auto) 0.5 Neut # (Auto) 3800 Lymph # (Auto) 1100 [place] # (Auto) 400 Eos # (Auto) 200 Baso # (Auto) 0 Sodium 136 L Potassium 3.6 3.4 Chloride 108 H Carbon Dioxide 25 BUN < 2 L Creatinine 0.30 L Estimated GFR > 60 BUN/Creatinine Ratio 6.7 Glucose 104 H Calcium 8.4 Total Bilirubin 0.5 AST 89 H ALT 67 H Alkaline Phosphatase 123 Total Protein 5.5 L Albumin 2.8 L Globulin 2.7 Albumin/Globulin Ratio 1.0 Amylase 111 H Lipase 929 H [facility] Medical History Irregular menstrual cycle (~2011) Esophagitis (~2006) Surgical History Hx of toe surgery (2007) Hx of wisdom tooth extraction (2011) Family History Father Age: 62 Hypertension Kidney disease Social History household members: spouse and children Smoking Status: Current every day smoker alcohol intake: current substance use type: does not use Assessment & Plan Assessment and plan (1) Pancreatitis: Qualifiers: Acute pancreatitis complication: unspecified Chronicity: acute Pancreatitis type: unspecified pancreatitis type Qualified Code(s): K85.90 - Acute pancreatitis without necrosis or infection, unspecified Status: Acute Assessment & Plan narrative: This is presumed to be alcoholic pancreatitis. Gallbladder sludge now reported as stones explained again to the patient as a cause for pancreatitis. I told the patient that the current guidelines are to undergo laparoscopic cholecystectomy with cholangiography on this hospitalization. She does not want to have surgery at this time. I explained to her that in some cases, chronic pancreatitis may develop into ductal abnormalities or pseudocyst which can cause persistently increased pancreatic enzymes. Her next episode of pancreatitis may be worse than this episode. We also discussed the partial splenic vein thrombosis. While she is still contemplating surgery, I would not recommend anticoagulation. If she decides against surgery, anticoagulation may or may not be beneficial. If she decides to have surgery, a duration of anticoagulation for 3-6 months would be recommended. Time-Based Coding :: [TOTAL MINUTES] spent with patient and on the chart (including review of chart, obtaining history, exam, reviewing outside data, placing orders, documenting exam and treatment plan, and counseling patient) on [DATE]. Quality VTE Deep Vein Thrombosis/Pulmonary Embolism Present on Admission: No
[2024-05-22] MEDS: SERTRALINE 50 MG TABLET PO (21:30)
[2024-05-23] VITALS (19 sets, daily range): BP systolic 107–141; BP diastolic 78–98; PULSE 61–87; RESP 10–20; TEMP 35.8–37.1; O2SAT 95–100; BMI 20.5
--- NOTE | 2024-05-23 | PATH_ITS ---
[facility] Accession Number: [id number] No. of containers..01 Tissue . 01 Material submitted: . gallbladder - GALLBLADDER . 01 Diagnosis: GALLBLADDER, CHOLECYSTECTOMY: Mild chronic cholecystitis with reactive changes. Benign lymph node of cystic duct also present. Negative for dysplasia and malignancy. [facility] 05/26/2024 1425 Local . 01 Electronically signed: . Haritha Carson MD, Pathologist NPI- [id number] . 01 Gross description: . Received in formalin with two patient identifiers and gallbladder, is an intact gallbladder, 6.8 x 3.5 x 3.3 cm, with an unremarkable external surface. The cystic duct margin is inked blue. The lumen contains dark green viscous bile with no calculi identified in the lumen or the container. The mucosa is green and velvety with no yellow areas of discoloration, polyps, or lesions identified. The hitchcock average 0.2 cm thick. Metal Baler sections to include the cystic duct margin and full thickness sections are submitted in A1. ([id number]) /MRV 05/26/2024 1117 Local . 01 Pathologist provided ICD-10: K81.1 . 01 CPT . 665485 Specimen Comment: A courtesy copy of this report has been sent to [facility] Performed at: [address] [address], [place], [place] [id number] MD Bernardo Lofton MD Phone: [phone]
[2024-05-23] MEDS: LORazepam 0.5 MG TABLET PO (03:25)
[2024-05-23] MEDS: HYDROMORPHONE 2 MG TABLET PO (03:25)
[2024-05-23] MEDS: SODIUM CHLORIDE 0.9% 1,000 ML 125 ML IV (07:21)
[2024-05-23 07:29] LABS: Calcium 8.2 mg/dL (8.4-10.2); Carbon Dioxide 27 mmol/L (22-32); Chloride 106 mmol/L (98-107); Estimated Glomerular Filt Rate > 60 mL/min (>60); Glucose 94 mg/dL (70-100); HEMOLYSIS < 15 (0-50); Potassium 3.5 mmol/L (3.4-5.1); Sodium 136 mmol/L (137-145)
[2024-05-23 07:56] LABS: BUN Creatinine Ratio 6.9 (6-22); Blood Urea Nitrogen < 2 mg/dL (7-17)
[2024-05-23] MEDS: PANTOPRAZOLE 40 MG VIAL IV ×2 (09:03→21:05)
[2024-05-23] MEDS: SCOPOLAMINE 1 PATCH TOP (10:53)
[2024-05-23] MEDS: CEFAZOLIN 2 GM/100 ML PREMIX 100 ML IV (11:53)
--- NOTE | 2024-05-23 11:53 | PM.PN.1 ---
Subjective Subjective Date Patient Seen: 05/23/24 Interval history: This morning the pt reports no significant abdominal pain, nausea, or vomiting. She continues to have an extremely low appetite, however. Exam Vital Signs (past 8 hours): - 05/23/24 07:00 05/23/24 08:00 05/23/24 10:57 Temperature 97.6 F 97.6 F Pulse Rate 74 70 Respiratory Rate 16 16 Blood Pressure 136/91 H 134/96 H Pulse Oximetry 98 98 97 Oxygen Delivery Method Room Air Room Air Oxygen Flow Rate 0 Oxygen Delivery Method Room Air Oxygen Flow Rate 0 Narrative Exam Narrative: Gen: NAD, sitting comfortably in bed CV: RRR, no murmurs Resp: clear to auscultation bilaterally Abd: soft, nontender, nondistended, hypoactive bowel sounds, no guarding/rebound/rigidity, no masses Ext: no edema Objective Labs 05/22/24 05:20 05/23/24 06:30 Labs: Laboratory Results - last 24 hr 05/23/24 06:30 Sodium 136 L Potassium 3.5 Chloride 106 Carbon Dioxide 27 BUN < 2 L Creatinine 0.29 L Estimated GFR > 60 BUN/Creatinine Ratio 6.9 Glucose 94 Calcium 8.2 L PFSH Medical History Irregular menstrual cycle (~2011) Esophagitis (~2006) Surgical History Hx of toe surgery (2006) Hx of wisdom tooth extraction (2011) Family History Father Age: 62 Hypertension Kidney disease Social History household members: spouse and children Smoking Status: Current every day smoker alcohol intake: current substance use type: does not use Assessment & Plan Assessment & Plan narrative: 29y F on HOD#8 for acute pancreatitis with clinical improvement in symptoms. 1) Acute pancreatitis: Thought to be due to alcohol consumption, however now consider gallstones as likely cause. Lipase and liver enzymes spiked 2 days ago. U/S showed cholelithiasis but no cholecystitis. CT abd/pelvis completed yesterday with ongoing evidence of pancreatitis, improved, but also partial splenic vein thrombosis. 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 Based on literature review, treatment of thrombosis with anticoagulation of questionable utility without additional risk factors. However, after cholecystectomy is more encouraged. - After surgical clearance, start anticoagulation 2) Dehydration: Improved - Continue mIVF until surgical recovery 3) Hyponatremia: Resolved 4) Anxiety/depression: Stable - Continue home Sertraline - Lorazepam PRN 5) UTI: Completed Ceftriaxone course. Asymptomatic. DVT ppx: Lovenox Diet: Advanced to full Code: Roll Forming Machine Set Up Mechanic-Based Coding :: [TOTAL MINUTES] spent with patient and on the chart (including review of chart, obtaining history, exam, reviewing outside data, placing orders, documenting exam and treatment plan, and counseling patient) on [DATE]. Quality VTE Deep Vein Thrombosis/Pulmonary Embolism Present on Admission: No IH PROFEE Charge codes Subsequent inpatient/observation care: [id number]
[2024-05-23] MEDS: ACETAMINOPHEN IV 1,000 MG/100 ML VIAL 400 MG IV (11:57)
--- NOTE | 2024-05-23 12:14 | SUR.OPER ---
Supine on padded OR bed, head on pillow, safety belt at thigh, right arm padded and tucked at side. Left arm secured on padded arm board <90 degrees abduction. Legs uncrossed. Tape over blanket to secure lower legs.
[2024-05-23] MEDS: LACTATED RINGERS 1,000 ML 42 ML IV (12:16)
[2024-05-23] MEDS: iopamidoL 30 ML VIAL INJ (12:22)
[2024-05-23] MEDS: BUPIVACAINE 0.5% W/ EPI (PF) 30 ML VIAL INJ (12:23)
[2024-05-23] MEDS: BUPIVACAINE 0.5% W/ EPI (PF) 10 ML VIAL INJ (12:25)
--- NOTE | 2024-05-23 12:28 | CM.DPNOTE ---
HARIKA Cont Reviewed chart. Patient discussed in multidisciplinary rounds. Surgery has recommended lap karina and patient now agreeable, surgery scheduled 05/23. Plan remains discharge home w/family w/close outpatient follow up. CM team following clinical course closely in case any discharge needs or concerns arise. PAYAM
--- NOTE | 2024-05-23 12:38 | DI.RAD.S_ITS ---
PROCEDURE: XR CHOLANGIOGRAM OPERATIVE INDICATIONS: Surgery COMPARISON: [facility], CT, CT ABDOMEN PELVIS W CON, 05/22/2024, 11:41. [facility], US, US ABDOMEN LIMITED, 05/21/2024, 15:11. FINDINGS: Biliary ducts: The surgeon injected contrast into the biliary ducts after cannulation of the cystic duct stump. Visualized intra- and extrahepatic bile ducts are normal in caliber, without strictures. No intraluminal filling defects to suggest retained ductal stones or sludge. Spillage of contrast is seen, which is attributed to an incomplete seal at the catheter insertion site. Duodenum: Contrast flows through the sphincter of Oddi into the duodenum, which appears normal in caliber. IMPRESSION: No significant intraoperative cholangiogram abnormality is seen. Dictated by: Greg Philip M.D. on 05/23/2024 at 12:03 Approved by: Greg Philip M.D. on 05/23/2024 at 12:04
--- NOTE | 2024-05-23 13:16 | P.OP_ITS ---
Operative Date/Time/Diagnoses Date of procedure: 05/23/24 Time of procedure: 13:16 Pre-op diagnosis: Gallstone pancreatitis Post-op diagnosis: same Procedure & Clinicians Procedure: Laparoscopic cholecystectomy with cholangiography Same procedure as scheduled: Yes Indications: Patient presented to the emergency department with pancreatitis. She was admitted to the medical service and her lipase failed to improve. Ultrasound demonstrated sludge and stones in the gallbladder. Patient agreed to a laparoscopic cholecystectomy with cholangiography prior to discharge. Surgeon: Maury Kc Click Yes if Unassisted: Yes Anesthesia Type: General Operative Notes Findings: Normal cholangiography Closure Type: primary Specimen(s): other (Gallbladder and contents) Estimated Blood Loss (mL): 15 Blood products transfused: none Procedure in detail: Patient was seen in the preoperative holding area. Consent was obtained. Patient was brought to the operating room suite. Time-out was performed. General anesthesia was induced. The abdomen was prepped and draped in the usual fashion with ChloraPrep. Total of 40 mL of 0.5% Marcaine with epinephrine were infiltrated at all trocar sites. 5 mm optical trocar was placed at ya's point in the left upper quadrant. Pneumoperitoneum was achieved in the abdomen was inspected. There was no evidence of entry site injuries. There is no free fluid or blood in the abdomen consistent with her underlying diagnosis of pancreatitis. 12 mm trocar was placed at the umbilicus. Two 5 mm trocars were placed in the right upper quadrant. The gallbladder was grasped from the fundus and retracted laterally and cephalad. Bovie electrocautery is used to open the medial and lateral attachments of the gallbladder mesentery revealing a single cystic duct and cystic artery. [place] dissector was used to obtain a critical view. The artery was doubly clipped and divided. The cystic duct was clipped at the junction of the gallbladder. Combination of Bovie electrocautery and Metzenbaum scissors was used to make a cystic ductotomy. A 5 Marshallese ureteral catheter was placed into the cystic duct. A cholangiogram was obtained which showed immediate emptying into the duodenal and bilateral intrahepatic filling without evidence of filling defect or stricture. This completed the cholangiography. Additional clips were placed on the cystic duct below the cystic ductotomy. Bovie electrocautery was used to remove the gallbladder from the liver bed. There was no spillage of bile or stones. The gallbladder was placed in a bag and brought out through the umbilicus. The right upper quadrant was irrigated and suctioned. There is no evidence of ongoing bleeding or bile spillage. A trans fascial suture Passer was used with an 0 Vicryl to close the 12 mm umbilical port. Pneumoperitoneum was relieved. All skin was closed with 4-0 Monocryl and Dermabond. Patient tolerated the procedure well was awakened transported to PACU in a stable condition for anticipated continued hospital stay. Complications: none Post-operative Condition: stable Disposition: PACU Plan for aftercare: return to medical service until resolution of pancreatitis.
--- NOTE | 2024-05-23 13:48 | SUR.PHASEI ---
Patient resting with eyes closed. Oral airway remains in place. RR even and unlabored on simple face mask at 7 liters oxygen. VSS.
[2024-05-23] MEDS: IBUPROFEN 400 MG TABLET PO ×2 (17:36→21:06)
[2024-05-23] MEDS: LIDOCAINE 5% PATCH 1 EACH TOP (21:05)
[2024-05-23] MEDS: ACETAMINOPHEN 325 MG TABLET 650 MG PO (21:06)
[2024-05-23] MEDS: SERTRALINE 50 MG TABLET PO (21:06)
[2024-05-24] MEDS: ACETAMINOPHEN 325 MG TABLET 650 MG PO ×3 (01:39→13:26)
[2024-05-24] MEDS: IBUPROFEN 400 MG TABLET PO ×4 (01:39→13:45)
[2024-05-24 01:43] VITALS: O2SAT 97
[2024-05-24 05:45] LABS: Add Manual Diff / Slide Review NO; Basophils Absolute Auto 0 /uL (0-100); Basophils Percent Auto 0.1 % (0-2); Eosinophils Absolute Auto 0 /uL (0-450); Eosinophils Percent Auto 0.4 % (2-4); Hematocrit 35.3 % (36-46); Hemoglobin 11.9 g/dL (12.0-16.0); Lymphocytes Absolute Auto 900 /uL (1100-4500); Mean Corpuscular HGB Conc 33.7 % (30-36); Mean Corpuscular Hemoglobin 36.5 PG (26-34); Mean Corpuscular Volume 108.1 fL (80-100); Monocytes Absolute Auto 700 /uL (0-900); Monocytes Percent Auto 9.4 % (3-14); Neutrophils Absolute Auto 5600 /uL (1500-7000); Neutrophils Percent Auto 77.1 % (50-75); Platelet Count 312 X10^3/uL (150-400); Red Blood Cell Count 3.26 X10^6/uL (4.0-5.2); Red Cell Distribution Width 16.5 % (11.6-14.8); White Blood Cell Count 7.3 X10^3/uL (4.5-11.0)
[2024-05-24 05:54] LABS: Alanine Aminotransferase 57 IU/L (<35); Albumin Globulin Ratio 1.1 (1.0-2.8); Alkaline Phosphatase 106 U/L (38-126); Aspartate Aminotransferase 62 IU/L (14-36); BUN Creatinine Ratio 8.8 (6-22); Bilirubin Total 0.6 mg/dL (0.2-1.3); Blood Urea Nitrogen 3 mg/dL (7-17); Calcium 8.9 mg/dL (8.4-10.2); Carbon Dioxide 27 mmol/L (22-32); Chloride 103 mmol/L (98-107); Estimated Glomerular Filt Rate > 60 mL/min (>60); Globulin 2.7 g/dL (1.7-4.1); Glucose 100 mg/dL (70-100); HEMOLYSIS < 15 (0-50); Lipase 717 U/L (23-300); Potassium 3.5 mmol/L (3.4-5.1); Sodium 134 mmol/L (137-145); Total Protein 5.7 g/dL (6.3-8.2)
[2024-05-24 07:00] VITALS: O2SAT 98
[2024-05-24 08:00] VITALS: BP 130/88; PULSE 58; RESP 12; TEMP 36.7; O2SAT 98
--- NOTE | 2024-05-24 08:24 | PM.PN.1 ---
Subjective Subjective Interval history: Pain well controlled with PO tylenol and ibuprofen. She has been able to eat postop (ate breakfast this morning) and ambulate to urinate independently. Nausea is well controlled on scopalamine patch applied yesterday. Has some discomfort over the RUQ, states she's only had mild pain to discomfort postop. No stool yet. Continues to be afebrile. Exam Vital Signs (past 8 hours): - 05/24/24 01:43 Pulse Oximetry 97 Oxygen Delivery Method Room Air Oxygen Delivery Method Room Air Oxygen Flow Rate 0 Narrative Exam Narrative: soft, warm, nondistended abdomen with mild pain over RUQ with deep palpation, discomfort in all other quadrants with deep palpation. Const Other: appears alert and comfortable in hospital bed Chest Other: breathing comfortably with symmetric rise of chest GI Other: 4 port sites (3 over RUQ/LUQ, 1 in the umbilicus) healing well with dermabond still in place. no active drainage, erythema, or pain directly over port sites. nondistended, tender to superficial palpation RUQ, tender to deep palpation LLQ/RLQ/LUQ. no guarding, no rigidity. bowel sounds present. Skin Other: warm and no rashes Neuro Other: aox3 moving all 4 limbs Extrem Other: no edema, no warmth or erythema bilateral LUEs. IV in place R arm, no erythema or signs of irritation Psych Other: smiling and full range of emotion. speech normal rate and rhythm, prosody. fidgets at times. no emotional lability. Objective Labs 05/24/24 05:10 05/24/24 05:10 Labs: Laboratory Results - last 24 hr 05/24/24 05:10 WBC 7.3 RBC 3.26 L Hgb 11.9 L Hct 35.3 L MCV 108.1 H MCH 36.5 H MCHC 33.7 RDW 16.5 H Plt Count 312 Neut % (Auto) 77.1 H Lymph % (Auto) 13.0 L [place] % (Auto) 9.4 Eos % (Auto) 0.4 L Baso % (Auto) 0.1 Neut # (Auto) 5600 Lymph # (Auto) 900 L [place] # (Auto) 700 Eos # (Auto) 0 Baso # (Auto) 0 Sodium 134 L Potassium 3.5 Chloride 103 Carbon Dioxide 27 BUN 3 L Creatinine 0.34 L Estimated GFR > 60 BUN/Creatinine Ratio 8.8 Glucose 100 Calcium 8.9 Total Bilirubin 0.6 AST 62 H ALT 57 H Alkaline Phosphatase 106 Total Protein 5.7 L Albumin 3.0 L Globulin 2.7 Albumin/Globulin Ratio 1.1 Lipase 717 H PFSH Medical History Irregular menstrual cycle (~2011) Esophagitis (~2006) Surgical History Hx of toe surgery (2006) Hx of wisdom tooth extraction (2011) Family History Father Age: 62 Hypertension Kidney disease Social History household members: spouse and children Smoking Status: Current every day smoker alcohol intake: current substance use type: does not use Assessment & Plan Assessment & Plan narrative: 29 y F POD#1 laparoscopic cholecystectomy doing well with pain well controlled on OTC meds, no recurrence of preop nausea, and tolerating PO intake. FEN: continue regular diet. slightly hyponatremic to 134 this AM, likely due to patient reported increase in fluid intake. no neurologic deficits or edema, continue to monitor pancreatitis: doing well POD#1 s/p lap karina with well controlled pain and nausea. she hasn't had any new emesis and is tolerating a regular diet. lipase/alk phos/liver enzymes continue to downtrend. can discharge on current pain regimen and ondansetron PRN. she has not yet stooled or had flatulence, only eructation, continue to monitor for signs of bowel motility splenic vein thrombosis: asymptomatic, no signs of embolization. Will discuss with GI whether she needs anticoagulation therapy and for how long, etc. depression/anxiety: controlled on sertraline and lorazepam PRN, as well as progression towards discharge. planning for outpatient counseling, fu in clinic DVT prophylaxis: enoxaparin and SCDs when she's inactive Time-Based Coding :: [TOTAL MINUTES] spent with patient and on the chart (including review of chart, obtaining history, exam, reviewing outside data, placing orders, documenting exam and treatment plan, and counseling patient) on [DATE]. Quality VTE Deep Vein Thrombosis/Pulmonary Embolism Present on Admission: No
[2024-05-24 09:00] VITALS: O2SAT 98
[2024-05-24] MEDS: PANTOPRAZOLE 40 MG VIAL IV (09:10)
[2024-05-24] MEDS: LIDOCAINE 5% PATCH 1 EACH TOP (09:10)
[2024-05-24 11:45] LABS: Appearance Urine UA CLEAR; Bilirubin Urine UA NEGATIVE (NEGATIVE); Color Urine UA YELLOW; Glucose Urine UA NEGATIVE (Negative); Ketones Urine UA TRACE (NEGATIVE); Leukocyte Esterase Urine UA NEGATIVE (NEGATIVE); Nitrite Urine UA NEGATIVE (Negative); Occult Blood Urine UA NEGATIVE (Negative); Protein Urine UA NEGATIVE (Negative); Urobilinogen Urine UA 0.2 E.U./dL (0.2)
[2024-05-24 11:53] LABS: Urine Volume 10mL (spun)
[2024-05-24 11:54] LABS: Bacteria Urine None Seen; Culture Indicated Urine Cult Not Indicated; RBC Urine None Seen (0-5/HPF); Squamous Epithelial Cell Urine None Seen (0-5/HPF); WBC Urine None Seen (0-5/HPF)
--- NOTE | 2024-05-24 12:28 | PM.PN.1 ---
Subjective Subjective Date Patient Seen: 05/24/24 Time Patient Seen: 11:30 Interval history: Patient looks and feels well today. She says her appetite has improved since surgery. Exam Vital Signs (past 8 hours): - 05/24/24 07:00 05/24/24 08:00 05/24/24 09:00 Temperature 98.1 F Pulse Rate 58 L Respiratory Rate 12 Blood Pressure 130/88 Pulse Oximetry 98 98 98 Oxygen Delivery Method Room Air Room Air Oxygen Flow Rate 0 Oxygen Delivery Method Room Air Oxygen Flow Rate 0 Narrative Exam Narrative: Gen: NAD, sitting comfortably in bed, appears well HEENT: Sclera are anicteric, head is normocephalic and atraumatic, trachea is midline. CV: RRR, no JVD Resp: clear to auscultation bilaterally, equal chest wall movement bilaterally Abd: soft, nontender, normoactive bowel sounds. Incisions are clean, dry, intact. Ext: no edema, full range of motion Neuro: Cranial nerves II-XII grossly intact, no focal deficits Skin: No erythema or ecchymosis Objective Labs 05/24/24 05:10 05/24/24 05:10 Labs: Laboratory Results - last 24 hr 05/24/24 05/24/24 05:10 10:00 WBC 7.3 RBC 3.26 L Hgb 11.9 L Hct 35.3 L MCV 108.1 H MCH 36.5 H MCHC 33.7 RDW 16.5 H Plt Count 312 Neut % (Auto) 77.1 H Lymph % (Auto) 13.0 L [place] % (Auto) 9.4 Eos % (Auto) 0.4 L Baso % (Auto) 0.1 Neut # (Auto) 5600 Lymph # (Auto) 900 L [place] # (Auto) 700 Eos # (Auto) 0 Baso # (Auto) 0 Sodium 134 L Potassium 3.5 Chloride 103 Carbon Dioxide 27 BUN 3 L Creatinine 0.34 L Estimated GFR > 60 BUN/Creatinine Ratio 8.8 Glucose 100 Calcium 8.9 Total Bilirubin 0.6 AST 62 H ALT 57 H Alkaline Phosphatase 106 Total Protein 5.7 L Albumin 3.0 L Globulin 2.7 Albumin/Globulin Ratio 1.1 Lipase 717 H Urine Color Yellow Urine Appearance Clear Urine pH 7.0 Ur Specific [place] 1.010 Urine Protein Negative Urine Glucose (UA) Negative Urine Ketones Trace H Urine Occult Blood Negative Urine Nitrate Negative Urine Bilirubin Negative Urine Urobilinogen 0.2 Ur Leukocyte Esterase Negative Urine RBC None seen Urine WBC None seen Ur Squamous Epith Cells None seen Urine Bacteria None seen Ur Culture Indicated? Cult not indicated Vol Urine Centrifuged 10ml (spun) [facility] Medical History Irregular menstrual cycle (~2011) Esophagitis (~2006) Surgical History Hx of toe surgery (2006) Hx of wisdom tooth extraction (2011) Family History Father Age: 62 Hypertension Kidney disease Social History household members: spouse and children Smoking Status: Current every day smoker alcohol intake: current substance use type: does not use Assessment & Plan Assessment & Plan narrative: 29 y F POD#1 laparoscopic cholecystectomy doing well with pain well controlled on OTC meds, no recurrence of preop nausea, and tolerating PO intake. Patient seems to be improving and would be appropriate for discharge today. She has not required any narcotic pain medications, so we will prescribe just Robaxin for her. Encouraged Tylenol and ibuprofen for the next couple of days. Advised her she is increased risk of bruising and bleeding for ibuprofen with anticoagulants. Would recommend anticoagulation for 3-6 months. If repeat imaging at 3 months reveals resolution of the splenic vein thrombosis, it could be stopped. If imaging at 3 months shows continued thrombosis or propagation she should continue on anticoagulation longer. We will defer to primary team choice between a DOAC, Coumadin or an injectable. Time-Based Coding :: [TOTAL MINUTES] spent with patient and on the chart (including review of chart, obtaining history, exam, reviewing outside data, placing orders, documenting exam and treatment plan, and counseling patient) on [DATE]. Quality VTE Deep Vein Thrombosis/Pulmonary Embolism Present on Admission: No
[2024-05-24 13:00] VITALS: O2SAT 98
--- NOTE | 2024-05-24 13:13 | P.DS_ITS ---
History of Present Illness History of Present Illness Date Patient Seen: 05/24/24 Time Patient Seen: 13:15 Date of Onset of Symptoms: 05/11/24 Chief complaint: vomiting, nausea, stomach cramping Narrative: 29-year-old female who normally sees Dr. Meng Brady admitted with severe nausea vomiting and abdominal pain. Symptoms have been present for 24 hours or so. Patient initially started with more kind of upper respiratory symptoms that she had a sinus infection for about a week with headache some photophobia maybe some queasiness in her stomach. Than the morning of admission develop much more significant abdominal pain in the epigastric area. Maybe goes around to her back. Significant vomiting through the course of the morning was unable to keep anything down. Came to the ER where with pain meds and parental antiemetics her symptoms are much improved No prior experience with symptoms like this ER evaluation demonstrated evidence of pancreatitis with a significantly elevated lipase and findings on CT imaging as well consistent with pancreatitis. Electrolytes were abnormal with a sodium initially of 161 but normal creatinine and glucose of 149. Slight bump in her LFTs as well which has been seen previously Patient does admit to alcohol intake least 2 drinks daily perhaps more in the past. Has had nothing to drink for the last 48 hours she says. Past medical history otherwise fairly benign. On no prescription medication. Recently being evaluated for possible carpal tunnel syndrome and was taking ibuprofen 400 mg to 1 3 times a day but that is not had any that for over a week Discharge Providers Provider Date of admission: 05/16/24 15:58 Discharge Date: 05/24/24 Primary care physician: Meng Brady MD Consults: 05/16/24 16:03 Consult to Hospitalist Service Routine Comment: Consulting Provider: Lisandro Emery Reason for consultation: acute pancreatitis and hypernatremia Has provider been notified: Yes 05/21/24 10:55 Consult to Physician Routine Comment: Consulting Provider: Maury Kc Reason for consultation: Pancreatitis 05/23/24 13:22 Consult to Discharge Planning Routine Comment: Discharge provider: Meng Brady MD Summary Hospital Course Discharge Diagnosis: pancreatitis Cholelithiasis dehydration Splenic vein /thrombosis UTI Depression Alcohol abuse Hospital Course: pancreatitis. Patient was admitted to the hospital with severe nausea and vomiting. Pretty significant pain. Exam showed no evidence of significant tenderness except maybe some epigastric tenderness. Patient was kept on NPO and hydrated with fluids. Patient was feeling better on Friday and diet was attempted to be increased and was not tolerated. Slight worsening in LFTs on the next day. We have resumed back to NPO and exam continued to be non significant. During this time it was felt to be secondary to her increase in alcohol use although she was not drinking and exceeding amount. But was with increased drinking. On Friday on the week of admission she had worsening LFTs and pancreas and an ultrasound was obtained which showed gallstones. discussed with the patient and it was felt that this all was possibly secondary to gallstone pancreatitis. Initial CT scan did not show any dilation of the collecting duct. After consult with surgeons they felt this was recommended to be removed and she had her gallbladder out. Postop day 1. She was feeling great much better pain was improved numbers were improving and she otherwise look good she will be sent home to be followed up in 1 week. Cholelithiasis. Patient was noted on day 6 to have gallstones after consult with the surgeon was felt to be probable cause of her pancreatitis and with worsening she had surgical procedure for removal. Postop day to 1 doing well surgeon felt like things were good and could go home. Dehydration. Patient was markedly dehydrated when she presented. She was aggressively hydrated it over the 1st week of her presentation and is euvolemic at this time. Doing well. Splenic vein thrombosis. Patient on initial CT scan showed no abnormality. Due to her pain and her worsening condition on days [address] she had [address] repeat CT scan which showed not a lot of change but did show a partial splenic vein thrombosis. This was discussed with the surgeon, GI, and Hematology. Risk of splenic vein thrombosis is vein enlarging around the esophagus. This time she has no pain or problems. Slight risk for bleeding but since it seems to be a partial thrombosis we are hoping she does not have those complications. This is a known complication of pancreatitis. And after discussion it was elected that we should treat with oral anticoagulation. Hopefully her insurance will cover that will start with newer generation Eliquis and if we have to go to Coumadin. Patient does not want to do injectables. This will be followed up in 3 months. UTI. Patient was noted on day want to have a UTI. Treated with Rocephin throughout the course of her admission since she was not taking p.o.. Attempted due switch to p.o. on day 4 which failed. UA was repeated and found to be negative. No further antibiotics at this time. Depression. Patient has been noted to be depressed and why she was drinking extra alcohol. She has been previously on sertraline. She has no suicidal ideations she is stressed about and worried all the time about where they are going to live since they are losing their house. Social service was contacted and they are hopefully going to help her find locations. But she is otherwise doing well she was placed on sertraline and feeling better will follow up as an outpatient. Alcohol abuse. Patient with increased drinking. I do not think this is a significant issue but certainly was worried that this was part of her pancreatitis. We discussed her need to stop. She will be on anticoagulation she will have her pancreas still irritated and at this point recommendation quits drinking and she thinks she can do that. Will follow-up next week. Greater than 35 minutes was spent on discussion with the patient hematology GI nursing dictation orders Exam Vital Signs (past 8 hours): - 05/24/24 07:00 05/24/24 08:00 05/24/24 09:00 Temperature 98.1 F Pulse Rate 58 L Respiratory Rate 12 Blood Pressure 130/88 Pulse Oximetry 98 98 98 Oxygen Delivery Method Room Air Room Air Oxygen Flow Rate 0 Oxygen Delivery Method Room Air Oxygen Flow Rate 0 Narrative Exam Narrative: alert female in no acute distressMuch less fatigued in appearance Lungs are clear heart is regular rate and rhythm abdomen with incisions Look good. No other change. Extremities normal Objective Labs 05/24/24 05:10 05/24/24 05:10 Labs: Laboratory Results - last 24 hr 05/24/24 05/24/24 05:10 10:00 WBC 7.3 RBC 3.26 L Hgb 11.9 L Hct 35.3 L MCV 108.1 H MCH 36.5 H MCHC 33.7 RDW 16.5 H Plt Count 312 Neut % (Auto) 77.1 H Lymph % (Auto) 13.0 L [place] % (Auto) 9.4 Eos % (Auto) 0.4 L Baso % (Auto) 0.1 Neut # (Auto) 5600 Lymph # (Auto) 900 L [place] # (Auto) 700 Eos # (Auto) 0 Baso # (Auto) 0 Sodium 134 L Potassium 3.5 Chloride 103 Carbon Dioxide 27 BUN 3 L Creatinine 0.34 L Estimated GFR > 60 BUN/Creatinine Ratio 8.8 Glucose 100 Calcium 8.9 Total Bilirubin 0.6 AST 62 H ALT 57 H Alkaline Phosphatase 106 Total Protein 5.7 L Albumin 3.0 L Globulin 2.7 Albumin/Globulin Ratio 1.1 Lipase 717 H Urine Color Yellow Urine Appearance Clear Urine pH 7.0 Ur Specific [place] 1.010 Urine Protein Negative Urine Glucose (UA) Negative Urine Ketones Trace H Urine Occult Blood Negative Urine Nitrate Negative Urine Bilirubin Negative Urine Urobilinogen 0.2 Ur Leukocyte Esterase Negative Urine RBC None seen Urine WBC None seen Ur Squamous Epith Cells None seen Urine Bacteria None seen Ur Culture Indicated? Cult not indicated Vol Urine Centrifuged 10ml (spun) PFSH Medical History Irregular menstrual cycle (~2011) Esophagitis (~2006) Surgical History Hx of toe surgery (2006) Hx of wisdom tooth extraction (2011) Family History Father Age: 62 Hypertension Kidney disease Social History household members: spouse and children Smoking Status: Current every day smoker alcohol intake: current substance use type: does not use Discharge Assessment & Plan Assessment and Plan Assessment: improved Plan of Treatment: discharge home Discharge Plan Nursing Discharge Comment: Patient to not use ibuprofen due to anticoagulation. Hold Lovenox injections and will be using Eliquis twice a day Discharge orders & Medications Discharge Orders: Discharge (Order); Ordered 05/24/24 Ordered By: Meng Brady Prescriptions: New enoxaparin [Lovenox] 40 mg/0.4 mL Syringe 40 mg SUBCUT DAILY 90 Days Qty: 36 1RF ibuprofen 400 mg Tablet 400 mg PO Q4H 5 Days Qty: 30 0RF methocarbamol 500 mg Tablet 500 mg PO QID PRN (Reason: Muscle Spasm) 14 Days Qty: 56 0RF acetaminophen 325 mg Tablet 650 mg PO Q6H 30 Days Qty: 240 0RF No Action No Known Home Medications Follow up/Referrals: Meng Brady MD [Primary Care Provider] - 1 Week ( please call for appointment) Discharge Health Status Multidrug resistant organism: No MDRO Precautions: [place] Diet/Activity/Treatments Diet: Diet as Tolerated Liquid consistency: Normal/Thin Food texture: Regular Activity: as tolerated Skin/Wound/Dressing Care Report to your healthcare provider any signs of infection, such as:: chills, fever, night sweats and increased pain Visit Report/Discharge Packet Instructions: DI for Laparoscopic Cholecystectomy Discharge Data Primary Care Provider: Meng Brady VTE Deep Vein Thrombosis/Pulmonary Embolism Present on Admission: No
--- NOTE | 2024-05-24 13:43 | CM.DPNOTE ---
DCP Note [employer] reviewed EMR. pt POD1 lap karina. Per surgeon and provider, medically cleared to dc home today. Per RN report,pt eating and drinking, doing well. no new CM needs identified. P: home today with family and OP f.u. CM team will continue to follow as needed. GERARDO Isbell
--- NOTE | 2024-05-24 15:34 | PC.NURSE ---
Patient is A&OX4, VSS, afebrile on RA. Lap sites to abdomen x4 CDI, TWISTER HAND. She reports pain is minimal and has a fair appetite. + flatus. U/A sent per MD Brady orders. MD Kc at bedside clearing patient for discharge home on anticoagulation. MD Bullock arrives to d/c patient home after lunch. She verbalizes understanding of medications, s/sx of complications, as well as infection, site care and follow up appointment in x1 week. Patient is escorted via [facility] to private vehicle with friend at 1430 this afternoon with all of her belongings.
--- NOTE | 2024-06-02 07:00 | PC.NURSE ---
NOC Shift Note/ Late entry: Dilaudid 1mg given at 0635am on 05/20/2024.
== END 2024-05-24 14:25 | disposition home or self-care (01) | DRG 263 ==
LOC: ED 15:57 → AC 15:59
PROVIDERS: Family Medicine; Surgery; Admitting Provider Internal Medicine; Emergency Provider Student in an Organized Health Care Education/Training Program; PCP Family Medicine; Referring Provider Student in an Organized Health Care Education/Training Program; Visit Provider Family Medicine
PROC: 0FT44ZZ Resection of Gallbladder, Percutaneous Endoscopic Approach (ICD-10-PCS; CPT 47562; principal; 2024-05-23 12:00)
DX: K85.10 Biliary acute pancreatitis without necrosis or infection (principal); E87.0 Hyperosmolality and hypernatremia; I82.890 Acute embolism and thrombosis of other specified veins; K80.20 Calculus of gallbladder without cholecystitis without obstruction; F17.200 Nicotine dependence, unspecified, uncomplicated; E86.0 Dehydration; N39.0 Urinary tract infection, site not specified; B96.20 Unspecified Escherichia coli [E. coli] as the cause of diseases classified elsewhere; F32.A Depression, unspecified; F41.9 Anxiety disorder, unspecified; F10.10 Alcohol abuse, uncomplicated; Y90.9 Presence of alcohol in blood, level not specified
CPT/HCPCS: 0241U; 36415; 74177; 74300; 76705; 80048; 80053; 81001; 82150; 83540; 83550; 83690; 84132; 84478; 84702; 85025; 87077; 87086; 87186; 96374; 96375; 96376; 99222; 99232; 99284; 99285; J0134; J0330; J0690; J0696; J1100; J1171; J1650; J1885; J2250; J2405; J2470; J2704; J2765; J3010; J3490; Q9967

== ENCOUNTER → 2024-08-19 10:47 | Outpatient (CLI) | payer OTHER, SELFPAY ==
[2024-05-16 17:59] VITALS: BMI 18.8
== END ==
LOC: PHYS 10:48
PROVIDERS: Family Provider Family Medicine; PCP Family Medicine; Referring Provider Family Medicine; Visit Provider Family Medicine
DX: R20.0 Anesthesia of skin (principal); R20.2 Paresthesia of skin
CPT/HCPCS: 95886; 95911

== ENCOUNTER → 2024-09-01 15:44 | Outpatient (CLI) | payer OTHER, SELFPAY ==
[2024-05-16 17:59] VITALS: BMI 18.8
--- NOTE | 2024-09-01 15:45 | DI.CT.S_ITS ---
PROCEDURE: CT ABDOMEN PELVIS W CON INDICATIONS: ACUTE BILIARY PANCREATITIS W/O INFECTION TECHNIQUE: After the administration of intravenous contrast, axial sections acquired from the lung bases to the pubic symphysis. Coronal and sagittal reformats were performed. For radiation dose reduction, the following was used: automated exposure control, adjustment of mA and/or kV according to patient size. COMPARISON: [facility], CT, CT ABDOMEN PELVIS W CON, 05/22/2024, 11:41. [facility], CT, CT ABDOMEN PELVIS W CON, 05/16/2024, 13:23. FINDINGS: Image quality: Diagnostic. Lower Chest: No significant findings. ABDOMEN: Liver: No solid mass. Liver is normal in size. There are geographic scattered areas of slightly lower attenuation within the liver parenchyma consistent with multifocal fatty infiltration Gallbladder: Previously resected Biliary ducts: No biliary dilation. Pancreas: No ductal dilation. Spleen: Size is within normal limits. Adrenal Glands: No adrenal nodules. Kidneys and Ureters: No hydronephrosis. No solid mass. No complex renal cystic lesion which requires follow up. Stomach and Bowel: Normal colonic caliber, without significant wall thickening. Peritoneum: No abnormal intraperitoneal fluid. No free air. Ventral Wall: No significant ventral hernia. Abdominal Nodes: No retroperitoneal or mesenteric adenopathy by size criteria. Vessels: Aorta and inferior vena cava are normal in size. PELVIS: Pelvic Organs: Unremarkable. Bladder: No bladder wall thickening, accounting for underdistention. Pelvic Nodes: No enlarged lymph nodes. Miscellaneous: No inguinal hernias are seen. Bones: No aggressive osseous abnormality. IMPRESSION: Scattered areas of geographic multifocal fatty infiltration within the liver, without evidence of hepatosplenomegaly. Prior cholecystectomy. No operative complication found. No evidence of pancreatic inflammation or peripancreatic edema. Please note that [id number] pancreatitis may not show identifiable CT changes. Dictated by: Alexsander Cuevas M.D. on 09/02/2024 at 11:14 Approved by: Alexsander Cuevas M.D. on 09/02/2024 at 11:19
== END ==
PROVIDERS: Family Provider Family Medicine; PCP Family Medicine; Referring Provider Family Medicine; Visit Provider Family Medicine
DX: K85.10 Biliary acute pancreatitis without necrosis or infection (principal); Z90.49 Acquired absence of other specified parts of digestive tract
CPT/HCPCS: 74177; Q9967

== ENCOUNTER 2025-05-15 12:13 | Emergency (ER) | payer OTHER, SELFPAY ==
[2024-05-16 17:59] VITALS: BMI 18.8
[2025-05-15] VITALS (13 sets, daily range): BP systolic 115–154; BP diastolic 66–100; PULSE 73–118; RESP 12–21; TEMP 36.3; O2SAT 96–100; BMI 15.2
--- NOTE | 2025-05-15 12:31 | DI.CT.S_ITS ---
PROCEDURE: CT ABDOMEN PELVIS W CON INDICATIONS: pain prior karina TECHNIQUE: After the administration of intravenous contrast, axial sections acquired from the lung bases to the pubic symphysis. Coronal and sagittal reformats were performed. For radiation dose reduction, the following was used: automated exposure control, adjustment of mA and/or kV according to patient size. COMPARISON: [facility], CT, CT ABDOMEN PELVIS W CON, 09/01/2024, 15:52. FINDINGS: Image quality: Diagnostic. Lower Chest: No significant findings. ABDOMEN: Liver: No solid mass. Hepatic steatosis. Focal fatty infiltration near the falciform ligament Gallbladder: Surgically absent Biliary ducts: No biliary dilation. Pancreas: No ductal dilation. Spleen: Mild splenomegaly. Adrenal Glands: No adrenal nodules. Kidneys and Ureters: No hydronephrosis. No solid mass. No complex renal cystic lesion which requires follow up. Stomach and Bowel: No obstruction. Normal appendix. Questionable mild wall thickening of the rectum Peritoneum: No abnormal intraperitoneal fluid. No free air. Ventral Wall: No significant ventral hernia. Abdominal Nodes: No retroperitoneal or mesenteric adenopathy by size criteria. Vessels: Aorta and inferior vena cava are normal in size. PELVIS: Pelvic Organs: Unremarkable. Bladder: No bladder wall thickening, accounting for underdistention. Pelvic Nodes: No enlarged lymph nodes. Miscellaneous: No inguinal hernias are seen. Bones: No aggressive osseous abnormality. IMPRESSION: No acute finding abdomen pelvis to explain patient's symptoms. Hepatic steatosis. Possible mild wall thickening the rectum, correlate for proctitis. Dictated by: Houston Byrd M.D. on 05/15/2025 at 12:52 Approved by: Houston Byrd M.D. on 05/15/2025 at 12:58
[2025-05-15] MEDS: ONDANSETRON 4 MG/2 ML INJ IV ×2 (12:40→15:51)
[2025-05-15] MEDS: SODIUM CHLORIDE 0.9% 1,000 ML 1000 ML IV ×2 (12:40→15:01)
[2025-05-15 12:57] LABS: Hematocrit 52.6 % (36-46); Hemoglobin 18.3 g/dL (12.0-16.0); Lymphocytes Absolute Auto 800 /uL (1100-4500); Mean Corpuscular HGB Conc 34.8 % (30-36); Mean Corpuscular Hemoglobin 34.4 PG (26-34); Mean Corpuscular Volume 98.9 fL (80-100); Platelet Count 325 X10^3/uL (150-400)
[2025-05-15 13:01] LABS: Add Manual Diff / Slide Review SLIDE REVIEW
[2025-05-15 13:04] LABS: Alanine Aminotransferase 28 IU/L (<35); Albumin 5.4 g/dL (3.5-5.0); Albumin Globulin Ratio 1.4 (1.0-2.8); Alkaline Phosphatase 115 U/L (38-126); Blood Urea Nitrogen 11 mg/dL (7-17); Calcium 10.3 mg/dL (8.4-10.2); Carbon Dioxide 23 mmol/L (22-32); Chloride 92 mmol/L (98-107); Estimated Glomerular Filt Rate > 60 mL/min (>60); Globulin 4.0 g/dL (1.7-4.1); Glucose 112 mg/dL (70-99); HEMOLYSIS 15 (0-50); Lactate (Lactic Acid) 1.6 mmol/L (0.7-2.1); Lipase 256 U/L (23-300); Potassium 3.4 mmol/L (3.4-5.1); Sodium 138 mmol/L (137-145); Total Protein 9.4 g/dL (6.3-8.2)
--- NOTE | 2025-05-15 13:14 | ED.ABDPAIN ---
HPI - Abdominal Pain General Chief Complaint: Abdominal Pain Stated Complaint: Abdominal pain/Nausea/Vomiting Time Seen by Provider: 05/15/25 12:31 Source: patient Mode of arrival: Ambulatory History of Present Illness HPI narrative: Patient is a 30-year-old female history of cholecystectomy 1 year ago presenting today with ongoing nausea vomiting abdominal pain. She has been not able to keep anything in for a number of days. She feels dizzy lightheaded she feels like she is very dehydrated. She has lost about 10 lb in a couple of weeks. Related Data Previous Rx's ?Medication ?Instructions ?Recorded enoxaparin 40 mg/0.4 mL 40 mg (0.4 mL) SUBCUT DAILY 90 05/24/24 subcutaneous syringe (Lovenox) days #36 mL amoxicillin 875 mg-potassium 1 tab PO BID #20 tabs 05/15/25 clavulanate 125 mg tablet hydrocodone 5 mg-acetaminophen 325 1 tab PO Q6H PRN pain #10 tabs 05/15/25 mg tablet ondansetron 4 mg disintegrating 4 mg PO Q8H PRN nausea and 05/15/25 tablet vomiting #20 tabs Allergies Allergy/AdvReac Type Severity Reaction Status Date / Time No Known Drug Allergies Allergy Verified 05/15/25 12:25 Patient History Medical History Irregular menstrual cycle (~2011) Esophagitis (~2006) Surgical History Hx of toe surgery (2006) Hx of wisdom tooth extraction (2011) Family History Father Age: 63 Hypertension Kidney disease Social History household members: spouse and children alcohol intake: current substance use type: does not use alcohol intake frequency: 3 or more drinks per day Exam Initial Vital Signs Initial Vital Signs: Vital Signs Temperature 97.4 F L 05/15/25 12:25 Pulse Rate 118 H 05/15/25 12:25 Respiratory Rate 18 05/15/25 12:25 Blood Pressure 154/93 H 05/15/25 12:25 Pulse Oximetry 96 05/15/25 12:25 Oxygen Delivery Method Room Air 05/15/25 12:25 GENERAL: Alert anxious tearful thin 30-year-old female and in no acute distress. HEENT: Head atraumatic,EOMI, pupils reactive, face symmetric, moist mucous membranes CARDIOVASCULAR: Regular rate and rhythm without murmurs, rubs or gallops. RESPIRATORY: Breath sounds equal bilaterally, no wheezes rales or rhonchi. ABDOMEN: Soft, tender diffusely no significant distention no guarding no rebound : No CVA tenderness EXTREMITIES: Normal range of motion, no clubbing or edema. Neurovascularly intact NEUROLOGICAL: Alert and oriented x4.Normal gait and speech. SKIN: Warm, dry, no laceration, no petechiae, no rashes or lesions. Course Orders Ordered: ED Orders 05/15/25 12:31 CT abdomen pelvis w con Stat 05/15/25 12:40 Complete Blood Count AUTO DIFF Stat Comprehensive Metabolic Panel Stat Lactate (Lactic Acid) Stat Lipase Stat 05/15/25 12:43 Urine Microscopic Stat Discontinued Medications Hydromorphone HCl (Hydromorphone Hcl 0.5 Mg/0.5 Ml Syringe) 0.5 mg IV NOW ONE Stop: 05/15/25 12:32 Last Admin: 05/15/25 12:40 Dose: 0.5 mg Documented By: KAMERON Hydromorphone HCl (Hydromorphone 1 Mg/Ml Syringe) 1 mg IV Q2HR PRN PRN Reason: Pain, Moderate (4-6) Last Admin: 05/15/25 15:51 Dose: 1 mg Documented By: KIMBERLY Sodium Chloride (Normal Saline 0.9%) 1,000 mls @ 1,000 mls/hr IV BOLUS ONE Stop: 05/15/25 13:30 Last Infusion: 05/15/25 15:19 Dose: Infused Documented By: Admin: 05/15/25 12:40 Dose: 1,000 mls/hr Documented By: KAMERON Sodium Chloride (Normal Saline 0.9%) 1,000 mls @ 1,000 mls/hr IV BOLUS ONE Stop: 05/15/25 14:14 Last Admin: 05/15/25 15:01 Dose: 1,000 mls/hr Documented By: KAMERON Ondansetron HCl (Ondansetron 4 Mg/2 Ml Inj) 4 mg IV NOW ONE Stop: 05/15/25 12:32 Last Admin: 05/15/25 12:40 Dose: 4 mg Documented By: KAMERON Ondansetron HCl (Ondansetron 4 Mg/2 Ml Inj) 4 mg IV NOW ONE Stop: 05/15/25 15:34 Last Admin: 05/15/25 15:51 Dose: 4 mg Documented By: KIMBERLY Vital Signs Vital signs: Vital Signs - 8 hr 05/15/25 12:25 05/15/25 12:54 05/15/25 12:55 Temperature 97.4 F L Pulse Rate 118 H 114 H Respiratory Rate 18 Blood Pressure 154/93 H 128/100 H Pulse Oximetry 96 98 Oxygen Delivery Method Room Air 05/15/25 12:55 05/15/25 12:59 05/15/25 12:59 Temperature Pulse Rate 95 H 92 H Respiratory Rate 12 Blood Pressure 125/96 H Pulse Oximetry 97 100 Oxygen Delivery Method 05/15/25 13:00 05/15/25 13:00 05/15/25 13:30 Temperature Pulse Rate 99 H 78 Respiratory Rate 20 20 Blood Pressure 126/99 H Pulse Oximetry 99 99 Oxygen Delivery Method 05/15/25 14:00 05/15/25 14:30 05/15/25 15:00 Temperature Pulse Rate 73 73 78 Respiratory Rate 18 21 20 Blood Pressure Pulse Oximetry 99 98 97 Oxygen Delivery Method 05/15/25 15:09 05/15/25 15:09 05/15/25 15:30 Temperature Pulse Rate 76 Respiratory Rate 18 Blood Pressure 120/86 132/93 H Pulse Oximetry 99 Oxygen Delivery Method 05/15/25 15:30 05/15/25 16:00 05/15/25 16:00 Temperature Pulse Rate 113 H 107 H Respiratory Rate 18 18 Blood Pressure 132/87 Pulse Oximetry 100 100 Oxygen Delivery Method 05/15/25 16:30 05/15/25 16:30 Temperature Pulse Rate 82 Respiratory Rate 16 Blood Pressure 115/66 Pulse Oximetry 98 Oxygen Delivery Method MDM - Abdominal Pain Lab Data 05/15/25 12:40 05/15/25 12:40 Labs: Lab Results 05/15/25 05/15/25 Range/Units 12:40 12:43 WBC 12.9 H (4.5-11.0) X10^3/uL RBC 5.32 H (4.0-5.2) X10^6/uL Hgb 18.3 H (12.0-16.0) g/dL Hct 52.6 H (36-46) % MCV 98.9 (80-100) fL MCH 34.4 H (26-34) PG MCHC 34.8 (30-36) % RDW 16.1 H (11.6-14.8) % Plt Count 325 (150-400) X10^3/uL Neut % (Auto) 88.9 H (50-75) % Lymph % (Auto) 6.1 L (25-40) % [place] % (Auto) 4.6 (3-14) % Eos % (Auto) 0.1 L (2-4) % Baso % (Auto) 0.3 (0-2) % Neut # (Auto) 74657 H (9191-2990) /uL Lymph # (Auto) 800 L (9086-5743) /uL [place] # (Auto) 600 (0-900) /uL Eos # (Auto) 0 (0-450) /uL Baso # (Auto) 0 (0-100) /uL RBC Morphology Normal morphology Sodium 138 (137-145) mmol/L Potassium 3.4 (3.4-5.1) mmol/L Chloride 92 L (98-107) mmol/L Carbon Dioxide 23 (22-32) mmol/L BUN 11 (7-17) mg/dL Creatinine 0.45 L (0.52-1.04) mg/dL Estimated GFR > 60 (>60) mL/min BUN/Creatinine Ratio 24.4 H (6-22) Glucose 112 H (70-99) mg/dL Lactate 1.6 (0.7-2.1) mmol/L Calcium 10.3 H (8.4-10.2) mg/dL Total Bilirubin 1.2 (0.2-1.3) mg/dL AST 33 (14-36) IU/L ALT 28 (<35) IU/L Alkaline Phosphatase 115 (38-126) U/L Total Protein 9.4 H (6.3-8.2) g/dL Albumin 5.4 H (3.5-5.0) g/dL Globulin 4.0 (1.7-4.1) g/dL Albumin/Globulin Ratio 1.4 (1.0-2.8) Lipase 256 (23-300) U/L Urine RBC None seen (0-5/HPF) Urine WBC 0-1/hpf (0-5/HPF) Ur Squamous Epith Cells 0-1 /hpf (0-5/HPF) Urine Bacteria None seen (None) Hyaline Casts 1-5/lpf (None) Ur Culture Indicated? Cult not indicated Vol Urine Centrifuged 10ml (spun) Point of care testing: Point of Care Testing Test Results Negative Urine Dip Bedside Urine Glucose Negative Bedside Urine Bilirubin + 1 Bedside Urine Ketone +++ 80 Urine Specific [place] 1.030 Bedside Urine Occult Blood +/- Bedside Urine pH 6.0 Bedside Urine Protein + 30 Bedside Urine Urobilinogen - Negative Bedside Urine Nitrite - Negative Bedside Urine Leukocytes +/- [address] scan - abdomen/pelvis: Radiologist's Impression: PROCEDURE: CT ABDOMEN PELVIS W CON INDICATIONS: pain prior karina TECHNIQUE: After the administration of intravenous contrast, axial sections acquired from the lung bases to the pubic symphysis. Coronal and sagittal reformats were performed. For radiation dose reduction, the following was used: automated exposure control, adjustment of mA and/or kV according to patient size. COMPARISON: [facility], CT, CT ABDOMEN PELVIS W CON, 09/01/2024, 15:52. FINDINGS: Image quality: Diagnostic. Lower Chest: No significant findings. ABDOMEN: Liver: No solid mass. Hepatic steatosis. Focal fatty infiltration near the falciform ligament Gallbladder: Surgically absent Biliary ducts: No biliary dilation. Pancreas: No ductal dilation. Spleen: Mild splenomegaly. Adrenal Glands: No adrenal nodules. Kidneys and Ureters: No hydronephrosis. No solid mass. No complex renal cystic lesion which requires follow up. Stomach and Bowel: No obstruction. Normal appendix. Questionable mild wall thickening of the rectum Peritoneum: No abnormal intraperitoneal fluid. No free air. Ventral Wall: No significant ventral hernia. Abdominal Nodes: No retroperitoneal or mesenteric adenopathy by size criteria. Vessels: Aorta and inferior vena cava are normal in size. PELVIS: Pelvic Organs: Unremarkable. Bladder: No bladder wall thickening, accounting for underdistention. Pelvic Nodes: No enlarged lymph nodes. Miscellaneous: No inguinal hernias are seen. Bones: No aggressive osseous abnormality. IMPRESSION: No acute finding abdomen pelvis to explain patient's symptoms. Hepatic steatosis. Possible mild wall thickening the rectum, correlate for proctitis. Dictated by: Houston Byrd M.D. on 05/15/2025 at 12:52 MDM Narrative Medical decision making narrative: MDM CC: Abdominal pain Complicating co-morbidities: Prior cholecystectomy 1 year ago Data collected from: patient Medical records reviewed: Surgery of cholecystectomy done on 05/23/2024 Differential considered: Gastroenteritis, Exam documented above, pertinent findings include: Alert anxious 30-year-old female abdomen is soft nontender very thin-appearing Lab Test results independently reviewed as above. Pertinent findings: CBC shows leukocytosis of 12.9, concentrated hemoglobin 18.3 hematocrit 52.6 platelets are 325 Chemistry electrolytes within normal limits creatinine 0.45 glucose 112 Lactate 1.6 Bilirubin liver enzymes within normal limits lipase 256 Imaging studies independently reviewed: CT abdomen no acute finding to suggest patient's symptoms possible thickening of the rectum correlate for proctitis Consultations:none Treatments: IV fluids Dilaudid Zofran Re-evaluations: Patient is feeling much better she is tolerating fluids abdomen is softer. Discussion: Patient is a 30-year-old female presenting today with nausea vomiting. Pain has been ongoing for a couple of days. She is tolerating fluids but then suddenly vomits. No significant diarrhea quite anxious at triage. She is found to be quite dehydrated and hemoconcentrated with a hemoglobin of 18 and hematocrit 52. Given 2 L of IV fluid Dilaudid and Zofran. Otherwise electrolytes and kidney function are within normal limits. CT does not really show any evidence of obstruction, but does suggest possible proctitis. Patient is having significant pain we will go ahead and start her on antibiotics she does have significant leukocytosis. She requests something for pain at home. Given [place] Zofran and Augmentin. Instruction to return as needed. Discharge Plan Departure Patient Disposition: Home Clinical Impression: Acute proctitis Instructions: Proctitis Activity Restrictions/Additional Instructions: *You have been diagnosed with proctitis nausea vomiting *What to do: At this time increase fluid as tolerated recommend Gatorade or Gatorade like substance. Hopefully pain starts feeling better soon *Continue to take medications as directed Augmentin 875 mg twice a day for 10 days Zofran 4 mg every 8 hours if needed for nausea or vomiting [place] 1 tablet every 4-6 hours if needed for severe pain do not combine with Tylenol Motrin 600 mg every 6 hours for [id number] pain *Follow up with your primary care provider in 2-3 days or call [phone] *Return to ER if you should have increasing pain, persistent nausea vomiting fevers or any new, worsening or concerning symptoms CONTROLLED SUBSTANCE DISCHARGE (Narcotoic/benzodiazepine/Flexeril/Phenergan) 1. You have been prescribed narcotic medications, it does have acetaminophen/Tylenol/paracetamol in it, DO NOT TAKE MORE THAN 4,00mg in 24 hours of Tylenol. TRAMADOL DOES NOT CONTAIN TYLENOL 2. Please understand that we cannot provide further refills of narcotics, benzodiazepines or controlled substances through the ED and her pain management will need to be through your provider. 3. While on these medications you cannot drive or operate heavy machinery. 4. You cannot sign legal documents or perform any duties such as this. 5. As long as you're taking opiate pain medications he should also be taking a stool softener such as Colace, Dulcolax, MiraLAX or prune juice, to help avoid constipation. Prescriptions: New hydrocodone-acetaminophen 5-325 mg tablet 1 tab PO Q6H PRN (Reason: pain) Qty: 10 0RF ondansetron 4 mg tablet,disintegrating 4 mg PO Q8H PRN (Reason: nausea and vomiting) Qty: 20 0RF amoxicillin-pot clavulanate 875-125 mg tablet 1 tab PO BID Qty: 20 0RF No Action enoxaparin [Lovenox] 40 mg/0.4 mL Syringe 40 mg SUBCUT DAILY 90 Days Qty: 36 1RF Referrals: Meng Brady MD [Primary Care Provider, Family Practice] Stand Alone Forms: Patient Portal/API
[2025-05-15 13:17] LABS: RBC Morphology Normal Morphology
[2025-05-15 13:37] LABS: Culture Indicated Urine Cult Not Indicated
--- NOTE | 2025-05-15 15:20 | PC.NURSE ---
pt having ongoing nausea / weight loss / vomiting since removal of her gall bladder. no vomiting since arrival
== END 2025-05-15 16:53 | disposition home or self-care (01) ==
PROVIDERS: Emergency Provider Emergency Medicine; Family Provider Family Medicine; PCP Family Medicine
DX: K62.89 Other specified diseases of anus and rectum (principal); R11.2 Nausea with vomiting, unspecified; R42 Dizziness and giddiness
CPT/HCPCS: 36415; 74177; 80053; 81003; 81015; 81025; 83605; 83690; 85025; 96374; 96375; 96376; 99284; J1171; J2405; J7030; Q9967

== ENCOUNTER 2025-06-08 08:34 | Inpatient (IN) | payer SELFPAY ==
[2024-05-16 17:59] VITALS: BMI 18.8
[2025-06-08] VITALS (7 sets, daily range): BP systolic 114–150; BP diastolic 72–101; PULSE 53–113; RESP 16–18; TEMP 36.4–36.9; O2SAT 97–100; BMI 15.5
--- NOTE | 2025-06-08 08:51 | ED.GENADULT ---
HPI - General Adult General Chief complaint: Abdominal Pain Stated complaint: Lower Abdominal pain 2 days ago Time Seen by Provider: 06/08/25 08:45 History of Present Illness HPI narrative: 30-year-old woman 1 year post cholecystectomy presents complaining of significant abdominal pain. She had significant presentation similar to this May [address] scan that suggested possible mild wall thickening to the rectum with no other abnormalities including normal pancreas. She had been doing relatively well over the last month and this morning woke with severe pain. She describes it as the epigastrium and left upper quadrant. Associated with nausea and vomiting, no fevers or chills. She does note almost 30 lb weight loss due to similar symptoms over the last year. She has been having intermittent episodes of diarrhea since her gallbladder has come out. Related Data Home Medications ?Medication ?Instructions ?Recorded ?Confirmed omeprazole 20 mg capsule,delayed 20 mg PO DAILY 06/08/25 06/08/25 release Previous Rx's ?Medication ?Instructions ?Recorded enoxaparin 40 mg/0.4 mL 40 mg (0.4 mL) SUBCUT DAILY 05/24/24 subcutaneous syringe (Lovenox) days #36 mL amoxicillin 875 mg-potassium 1 tab PO BID #20 tabs 05/15/25 clavulanate 125 mg tablet hydrocodone 5 mg-acetaminophen 325 1 tab PO Q6H PRN pain #10 tabs 05/15/25 mg tablet ondansetron 4 mg disintegrating 4 mg PO Q8H PRN nausea and 05/15/25 tablet vomiting #20 tabs Allergies Allergy/AdvReac Type Severity Reaction Status Date / Time No Known Drug Allergies Allergy Verified 05/15/25 12:25 Review of Systems Review of Systems Narrative: Pertinent positive and negative findings as per HPI Patient History Medical History Irregular menstrual cycle (~2011) Esophagitis (~2006) Surgical History Hx of toe surgery (2006) Hx of wisdom tooth extraction (2011) Family History Father Age: 63 Hypertension Kidney disease Social History household members: spouse and children Smoking Status: Current some day smoker alcohol intake: current substance use type: does not use alcohol intake frequency: 3 or more drinks per day Exam Initial Vital Signs Initial Vital Signs: Vital Signs Temperature 97.5 F L 06/08/25 08:47 Pulse Rate 113 H 06/08/25 08:47 Respiratory Rate 16 06/08/25 08:47 Blood Pressure 129/101 H 06/08/25 08:47 Pulse Oximetry 97 06/08/25 08:47 Oxygen Delivery Method Room Air 06/08/25 08:47 General: Thin, pale, in obvious pain HEENT: Moist mucous membranes, normal sclera with reactive pupils, Respiratory: Lungs are clear to auscultation, no wheezing no rales no rhonchi. Full and symmetrical air movement Cardiac: Regular rate and rhythm no murmurs no bruits Abdomen: she is significantly tender in the left upper quadrant without rebound or guarding. She does not have any flank pain Skin: Pale but otherwise Warm and dry, no rashes Neurologic: Grossly neurologically intact with no obvious asymmetries or abnormalities Extremities: No trauma, well perfused Psych: Cooperative, appropriate insight and affect Course Orders Ordered: ED Orders 06/08/25 19:32 Consult to Dietitian, Adult Routine Consult to Pastoral Services Routine 06/09/25 06:00 Amylase Urgent CMP [Comprehensive Metabolic Panel] Urgent Complete Blood Count AUTO DIFF Urgent Acetaminophen (Acetaminophen 325 Mg Tablet) 650 mg PO Q6H PRN PRN Reason: Fever/Mild Pain (1-3) Enoxaparin Sodium (Enoxaparin 40 Mg/0.4 Ml Syringe) 40 mg SUBCUT DAILY PAULA Hydromorphone HCl (Hydromorphone Hcl 0.5 Mg/0.5 Ml Syringe) 0.5 mg IV Q15MIN PRN PRN Reason: Pain, Last Admin: 06/08/25 17:09 Dose: 0.5 mg Documented By: Admin: 06/08/25 13:52 Dose: 0.5 mg Documented By: Admin: 06/08/25 11:49 Dose: 0.5 mg Documented By: KIM Hydromorphone HCl (Hydromorphone Hcl 0.5 Mg/0.5 Ml Syringe) 0.5 mg IV Q2H PRN PRN Reason: Pain, Severe (7-10) Lactated Ringer's (Lactated Ringers) 1,000 mls @ 125 mls/hr IV CONT [facility] Last Admin: 06/08/25 13:50 Dose: 125 mls/hr Documented By: KIM Naloxone HCl (Naloxone 0.4 Mg/Ml Vial) 0.2 mg IV Q2MIN PRN PRN Reason: Opiate Reversal Ondansetron HCl (Ondansetron 4 Mg/2 Ml Inj) 4 mg IV NOW PRN PRN Reason: Nausea And Vomiting Last Admin: 06/08/25 17:17 Dose: 4 mg Documented By: Admin: 06/08/25 13:52 Dose: 4 mg Documented By: Admin: 06/08/25 09:16 Dose: 4 mg Documented By: KAROLINA Ondansetron HCl (Ondansetron 4 Mg Odt) 4 mg PO NOW PRN PRN Reason: Nausea And Vomiting Ondansetron HCl (Ondansetron 4 Mg/2 Ml Inj) 4 mg IV Q8HR PRN PRN Reason: Nausea And Vomiting Pantoprazole Sodium (Pantoprazole 40 Mg Vial) 20 mg IV DAILY [facility] Last Admin: 06/08/25 13:52 Dose: 20 mg Documented By: KIM Discontinued Medications Hydromorphone HCl (Hydromorphone Hcl 0.5 Mg/0.5 Ml Syringe) 0.5 mg IV NOW ONE Stop: 06/08/25 08:54 Last Admin: 06/08/25 09:16 Dose: 0.5 mg Documented By: KAROLINA Sodium Chloride (Normal Saline 0.9%) 1,000 mls @ 1,000 mls/hr IV BOLUS ONE Stop: 06/08/25 09:52 Last Infusion: 06/08/25 10:08 Dose: Infused Documented By: Admin: 06/08/25 09:16 Dose: 1,000 mls/hr Documented By: KAROLINA Sodium Chloride (Normal Saline 0.9%) 1,000 mls @ 1,000 mls/hr IV BOLUS ONE Stop: 06/08/25 12:34 Last Infusion: 06/08/25 13:12 Dose: Infused Documented By: Admin: 06/08/25 12:16 Dose: 1,000 mls/hr Documented By: KAROLINA Ondansetron HCl (Ondansetron 4 Mg/2 Ml Inj) 4 mg IV NOW ONE Stop: 06/08/25 11:36 Last Admin: 06/08/25 11:49 Dose: 4 mg Documented By: CTS Vital Signs Vital signs: Vital Signs - 8 hr 06/08/25 13:00 06/08/25 16:49 06/08/25 19:15 Temperature 98.5 F Pulse Rate 64 53 L 87 Respiratory Rate 16 16 Blood Pressure 114/72 150/92 H 132/78 Pulse Oximetry 98 99 99 Oxygen Delivery Method Room Air Room Air Medical Decision Making Lab Data 06/08/25 09:00 06/08/25 09:00 Labs: Lab Results 06/08/25 Range/Units 09:00 WBC 11.3 H (4.5-11.0) X10^3/uL RBC 4.63 (4.0-5.2) X10^6/uL Hgb 16.2 H (12.0-16.0) g/dL Hct 47.1 H (36-46) % MCV 101.8 H (80-100) fL MCH 35.1 H (26-34) PG MCHC 34.5 (30-36) % RDW 16.9 H (11.6-14.8) % Plt Count 235 (150-400) X10^3/uL Neut % (Auto) 91.1 H (50-75) % Lymph % (Auto) 4.3 L (25-40) % [place] % (Auto) 4.2 (3-14) % Eos % (Auto) 0.1 L (2-4) % Baso % (Auto) 0.3 (0-2) % Neut # (Auto) 85805 H (6345-4995) /uL Lymph # (Auto) 500 L (4538-3979) /uL [place] # (Auto) 500 (0-900) /uL Eos # (Auto) 0 (0-450) /uL Baso # (Auto) 0 (0-100) /uL Sodium 139 (137-145) mmol/L Potassium 3.6 (3.4-5.1) mmol/L Chloride 101 (98-107) mmol/L Carbon Dioxide 28 (22-32) mmol/L BUN 4 L (7-17) mg/dL Creatinine 0.36 L (0.52-1.04) mg/dL Estimated GFR > 60 (>60) mL/min BUN/Creatinine Ratio 11.1 (6-22) Glucose 142 H (70-99) mg/dL Calcium 9.3 (8.4-10.2) mg/dL Total Bilirubin 1.5 H (0.2-1.3) mg/dL AST 46 H (14-36) IU/L ALT 47 H (<35) IU/L Alkaline Phosphatase 109 (38-126) U/L Total Protein 7.1 (6.3-8.2) g/dL Albumin 4.2 (3.5-5.0) g/dL Globulin 2.9 (1.7-4.1) g/dL Albumin/Globulin Ratio 1.4 (1.0-2.8) Lipase 707 H (23-300) U/L Point of Care Testing Test Results Negative Urine Dip Bedside Urine Glucose Negative Bedside Urine Bilirubin - Negative Bedside Urine Ketone - Negative Urine Specific [place] 1.000 Bedside Urine Occult Blood - Negative Bedside Urine pH 6.5 Bedside Urine Protein +/- 15 Bedside Urine Urobilinogen - Negative Bedside Urine Nitrite - Negative Bedside Urine Leukocytes - Negative Esterase Point of care testing: Point of Care Testing Test Results Negative Urine Dip Bedside Urine Glucose Negative Bedside Urine Bilirubin - Negative Bedside Urine Ketone - Negative Urine Specific [place] 1.000 Bedside Urine Occult Blood - Negative Bedside Urine pH 6.5 Bedside Urine Protein +/- 15 Bedside Urine Urobilinogen - Negative Bedside Urine Nitrite - Negative Bedside Urine Leukocytes - Negative Esterase Imaging Data CT scan - abdomen/pelvis: Radiologist's Impression: PROCEDURE: CT ABDOMEN PELVIS W CON INDICATIONS: epigastric and LUQ pain TECHNIQUE: After the administration of intravenous contrast, axial sections acquired from the lung bases to the pubic symphysis. Coronal and sagittal reformats were performed. For radiation dose reduction, the following was used: automated exposure control, adjustment of mA and/or kV according to patient size. COMPARISON: [facility], CT, CT ABDOMEN PELVIS W CON, 05/15/2025, 13:05. FINDINGS: Image quality: Diagnostic. Lower Chest: No significant findings. ABDOMEN: Liver: No solid mass. Jjhv-hv-abslirkq diffuse hepatic steatosis. Gallbladder: Absent Biliary ducts: No biliary dilation. Pancreas: Acute pancreatitis. Edema in the pancreatic head and uncinate process with peripancreatic fluid. No pancreatic necrosis identified. Spleen: Size is within normal limits. Adrenal Glands: No adrenal nodules. Kidneys and Ureters: No hydronephrosis. No solid mass. No complex renal cystic lesion which requires follow up. Stomach and Bowel: Normal colonic caliber, without significant wall thickening. Peritoneum: No abnormal intraperitoneal fluid. No free air. Ventral Wall: No significant ventral hernia. Abdominal Nodes: No retroperitoneal or mesenteric adenopathy by size criteria. Vessels: Aorta and inferior vena cava are normal in size. PELVIS: Pelvic Organs: Unremarkable. Bladder: No bladder wall thickening, accounting for underdistention. Pelvic Nodes: No enlarged lymph nodes. Miscellaneous: No inguinal hernias are seen. Bones: No aggressive osseous abnormality. IMPRESSION: 1. Remote cholecystectomy. 2. Rlhq-yv-bzsuzkmr diffuse hepatic steatosis. 3. Acute pancreatitis. Dictated by: Kunal August M.D. on 06/08/2025 at 9:29 MDM Narrative Medical decision making narrative: CC: Abdominal pain Complicating co-morbidities: 10 lb weight loss over the last month, similar pain almost exactly a month ago. Cholecystectomy a year ago Data collected from: patient Medical records reviewed: ER note from May 15 as well as imaging studies reviewed Differential considered: Gastritis, gastric ulcer, bowel obstruction, pancreatitis doubt constipation Exam documented above, pertinent findings include: she is significantly tender in the left upper quadrant without rebound or guarding. She does not have any flank pain, heart and lungs are otherwise benign Lab Test results independently reviewed as above. Pertinent findings: CBC shows minimal leukocytosis at 11.3 however neutrophils are at 91%. Hemoglobin is elevated suspect this is volume concentration Chemistries show appropriate renal function. Bilirubin slightly elevated at 1.5, AST is elevated at 46, ALT is 47. Normal alkaline phosphatase Lipase is elevated at 700 Independently reviewed EKG: Sinus rhythm at a rate of 57. No acute ischemic changes appreciated Imaging studies independently reviewed: Due to the severity of pain and describe a weight loss, CT scan of the abdomen was repeated. Of note this is her 3rd scan this year for similar complaints Findings today show acute pancreatitis without abscess or pancreatic necrosis. No obvious ductal dilatation Treatments: IV fluids, IV Dilaudid Discussion: 30-year-old woman with acutely worsened left upper quadrant abdominal pain, acute pancreatitis according to lab work and CT scan with no evidence of infection. Fluids and pain medications have been initiated. She has been having significant abdominal pain over the last year, concurrent with her gallbladder being removed. It sounds like her primary care physician has recently ordered a GI consult. She may benefit from trying simple things like Questran, nutrition consult to help with better suggestions on bio availability and absorption. She would very much like to be eating better and not losing weight. She is agreeable to hospitalization at this time Discharge Plan Departure Patient Disposition: Admitted as Observation Clinical Impression: Recent unexplained weight loss Pancreatitis Qualifiers: Chronicity: acute Pancreatitis type: unspecified pancreatitis type Acute pancreatitis complication: unspecified Qualified Code(s): K85.90 - Acute pancreatitis without necrosis or infection, unspecified Admit Date/Time: 06/08/25 19:35 Admit Provider: Meng Brady
--- NOTE | 2025-06-08 08:53 | EKG_ITS ---
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
[2025-06-08 09:06] LABS: Add Manual Diff / Slide Review NO; Hematocrit 47.1 % (36-46); Hemoglobin 16.2 g/dL (12.0-16.0); Lymphocytes Absolute Auto 500 /uL (1100-4500); Mean Corpuscular HGB Conc 34.5 % (30-36); Mean Corpuscular Hemoglobin 35.1 PG (26-34); Mean Corpuscular Volume 101.8 fL (80-100); Platelet Count 235 X10^3/uL (150-400)
[2025-06-08] MEDS: SODIUM CHLORIDE 0.9% 1,000 ML 1000 ML IV ×2 (09:16→12:16)
[2025-06-08] MEDS: ONDANSETRON 4 MG/2 ML INJ IV ×4 (09:16→17:17)
[2025-06-08 09:21] LABS: Alanine Aminotransferase 47 IU/L (<35); Albumin 4.2 g/dL (3.5-5.0); Albumin Globulin Ratio 1.4 (1.0-2.8); Alkaline Phosphatase 109 U/L (38-126); Blood Urea Nitrogen 4 mg/dL (7-17); Calcium 9.3 mg/dL (8.4-10.2); Carbon Dioxide 28 mmol/L (22-32); Chloride 101 mmol/L (98-107); Estimated Glomerular Filt Rate > 60 mL/min (>60); Globulin 2.9 g/dL (1.7-4.1); Glucose 142 mg/dL (70-99); HEMOLYSIS 19 (0-50); Lipase 707 U/L (23-300); Potassium 3.6 mmol/L (3.4-5.1); Sodium 139 mmol/L (137-145); Total Protein 7.1 g/dL (6.3-8.2)
--- NOTE | 2025-06-08 13:37 | PM.HP.1 ---
History of Present Illness History of Present Illness Date Patient Seen: 06/08/25 Time Patient Seen: 13:38 Chief complaint: Lower Abdominal pain 2 days ago Narrative: Patient is a 30-year-old female well known to me who presents for abdominal pain. Patient has had recurrent episodes of abdominal pain over the course of the last couple of years. She had pancreatitis at least 2 or 3 times. With the felt like it was secondary to her gallbladder disease she would her gallbladder removed and has had 2 episodes since then. Patient has resumed drinking again and has been drinking 2 bottles of alcohol a day. Sometimes 3. She noted 2 days ago that she started feeling nauseated a little less appetite yesterday she started having some mild comfort in the her central abdomen epigastric area and today she woke up with it quite bad. Presented to the hospital had 1 episode of vomiting no real diarrhea no blood. Patient has had a 30 lb weight loss over the last year. Not intentional. No other changes. She has had no fevers chills nausea vomiting blood in her stool. Blood in her vomit. No headaches chest pain shortness for breath cough fevers myalgias [facility] Medical History Irregular menstrual cycle (~2011) Esophagitis (~2006) Surgical History Hx of toe surgery (2006) Hx of wisdom tooth extraction (2011) Family History Father Age: 63 Hypertension Kidney disease Social History household members: spouse and children alcohol intake: current substance use type: does not use Meds Home Medications and Allergies Home Medications ?Medication ?Instructions ?Recorded ?Confirmed ?Type enoxaparin 40 mg/0.4 mL 40 mg (0.4 mL) SUBCUT DAILY 90 05/24/24 Rx subcutaneous syringe (Lovenox) days #36 mL amoxicillin 875 mg-potassium 1 tab PO BID #20 tabs 05/15/25 Rx clavulanate 125 mg tablet hydrocodone 5 mg-acetaminophen 325 1 tab PO Q6H PRN pain #10 tabs 05/15/25 Rx mg tablet ondansetron 4 mg disintegrating 4 mg PO Q8H PRN nausea and 05/15/25 Rx tablet vomiting #20 tabs Allergies Allergy/AdvReac Type Severity Reaction Status Date / Time No Known Drug Allergies Allergy Verified 05/15/25 12:25 Review of Systems Review of Systems Narrative: Please see history and physical Exam Vital Signs (past 8 hours): - 06/08/25 08:47 06/08/25 09:22 06/08/25 09:57 Temperature 97.5 F L Pulse Rate 113 H 82 71 Respiratory Rate 16 18 16 Blood Pressure 129/101 H 118/82 130/82 Pulse Oximetry 97 98 100 Oxygen Delivery Method Room Air Room Air Room Air 06/08/25 13:00 Temperature 98.5 F Pulse Rate 64 Respiratory Rate 16 Blood Pressure 114/72 Pulse Oximetry 98 Oxygen Delivery Method Room Air Oxygen Delivery Method Room Air Narrative Exam Narrative: Alert female sitting in chair in no acute distress HEENT exam mucous membranes mildly dry neck supple without adenopathy JVD or bruits lungs are clear. Heart is regular rate and rhythm without murmurs clicks rubs or gallops abdomen is soft positive bowel sounds with [id number] epigastric pain no rebound guarding no hepatosplenomegaly no masses Objective Labs 06/08/25 09:00 06/08/25 09:00 Labs: Laboratory Results - last 24 hr 06/08/25 09:00 WBC 11.3 H RBC 4.63 Hgb 16.2 H Hct 47.1 H MCV 101.8 H MCH 35.1 H MCHC 34.5 RDW 16.9 H Plt Count 235 Neut % (Auto) 91.1 H Lymph % (Auto) 4.3 L [place] % (Auto) 4.2 Eos % (Auto) 0.1 L Baso % (Auto) 0.3 Neut # (Auto) 95410 H Lymph # (Auto) 500 L [place] # (Auto) 500 Eos # (Auto) 0 Baso # (Auto) 0 Sodium 139 Potassium 3.6 Chloride 101 Carbon Dioxide 28 BUN 4 L Creatinine 0.36 L Estimated GFR > 60 BUN/Creatinine Ratio 11.1 Glucose 142 H Calcium 9.3 Total Bilirubin 1.5 H AST 46 H ALT 47 H Alkaline Phosphatase 109 Total Protein 7.1 Albumin 4.2 Globulin 2.9 Albumin/Globulin Ratio 1.4 Lipase 707 H Assessment & Plan Assessment & Plan narrative: Pancreatitis. Probably alcohol related. Will start fluids. Recheck lipase amylase in a.m.. Follow other labs closely. Electrolytes. We will give clear liquids for now. And then see how she does. Recheck a.m.. Discussed need to stop drinking. I think this is all related to pancreatitis but hard to know. Will give IV fluids and we will cover with PPI Hepatitis. Mild. Maybe secondary to her pancreatitis will just have to see. Maybe related to her drinking. Will see what her numbers do over the next 24 hours and follow. Unexplained weight loss. Maybe related to her drinking in her pancreatitis but will have to see. Workup has been started as an outpatient will be followed. Dehydration. [id number]-ct-[id number] will just give 125 cc LR and follow. Mild elevation in blood sugar. Will see what it is in the morning. I do not think she is diabetic but will need to see where we go. History of splenic vein thrombosis. Does not seem to be active on CT scan. Will cover with DVT prophylaxis and hopes to not get recurrence DVT prophylaxis on Lovenox GI prophylaxis on PPI. Code status full. Disposition. Unclear how long this will take the resolved. She is going to be taking p.o. and having no pain by the time we discharge last time it was 2-3 days. My anticipation would be that. Will see how the next 24 hours goes. Time-Based Coding :: [TOTAL MINUTES] spent with patient and on the chart (including review of chart, obtaining history, exam, reviewing outside data, placing orders, documenting exam and treatment plan, and counseling patient) on [DATE].
[2025-06-08] MEDS: LACTATED RINGERS 1,000 ML 125 ML IV ×2 (13:50→19:56)
[2025-06-08] MEDS: PANTOPRAZOLE 40 MG VIAL 20 MG IV (13:52)
[2025-06-08] MEDS: ONDANSETRON 4 MG ODT PO (22:41)
[2025-06-08] MEDS: METOCLOPRAMIDE 10 MG/2 ML INJ IV (23:08)
[2025-06-09 01:00] VITALS: BP 106/87; PULSE 78; RESP 15; TEMP 36.5; O2SAT 99
[2025-06-09] MEDS: LACTATED RINGERS 1,000 ML 125 ML IV ×3 (03:47→19:37)
[2025-06-09] MEDS: ONDANSETRON 4 MG/2 ML INJ IV ×3 (03:47→20:41)
[2025-06-09 07:36] LABS: Add Manual Diff / Slide Review NO; Hematocrit 40.9 % (36-46); Hemoglobin 14.0 g/dL (12.0-16.0); Lymphocytes Absolute Auto 800 /uL (1100-4500); Mean Corpuscular HGB Conc 34.2 % (30-36); Mean Corpuscular Hemoglobin 35.1 PG (26-34); Mean Corpuscular Volume 102.7 fL (80-100); Platelet Count 193 X10^3/uL (150-400)
[2025-06-09 07:50] LABS: Alanine Aminotransferase 28 IU/L (<35); Albumin 3.2 g/dL (3.5-5.0); Albumin Globulin Ratio 1.3 (1.0-2.8); Alkaline Phosphatase 75 U/L (38-126); Amylase 148 U/L (30-110); Blood Urea Nitrogen 3 mg/dL (7-17); Calcium 8.5 mg/dL (8.4-10.2); Carbon Dioxide 28 mmol/L (22-32); Chloride 103 mmol/L (98-107); Estimated Glomerular Filt Rate > 60 mL/min (>60); Globulin 2.5 g/dL (1.7-4.1); Glucose 114 mg/dL (70-99); HEMOLYSIS < 15 (0-50); Potassium 3.6 mmol/L (3.4-5.1); Sodium 138 mmol/L (137-145); Total Protein 5.7 g/dL (6.3-8.2)
[2025-06-09 08:00] VITALS: BP 108/77; PULSE 62; RESP 12; TEMP 37; O2SAT 99
[2025-06-09] MEDS: PANTOPRAZOLE 40 MG VIAL 20 MG IV (08:00)
[2025-06-09] MEDS: METOCLOPRAMIDE 10 MG/2 ML INJ IV ×2 (08:00→17:16)
--- NOTE | 2025-06-09 08:29 | P.PN_ITS ---
Subjective Subjective Date Patient Seen: 06/09/25 Time Patient Seen: 08:29 Interval history: Patient seen in follow-up of pancreatitis, dehydration, nausea vomiting hepatitis. Patient overall is feeling well. With no significant new change or complaints. No increase in pain but still baseline abdominal discomfort. Some nausea whenever she moves. He has not vomited. Otherwise no change. No other complaint or problem Exam Vital Signs (past 8 hours): - 06/09/25 01:00 Temperature 97.7 F Pulse Rate 78 Respiratory Rate 15 Blood Pressure 106/87 Pulse Oximetry 99 Oxygen Flow Rate 0 Oxygen Delivery Method Room Air Oxygen Flow Rate 0 Narrative Exam Narrative: Alert fatigued female in no acute distress Mucous membranes are improved lungs are clear heart is regular rate and rhythm abdomen is soft positive bowel sounds nontender Objective Labs 06/09/25 07:25 06/09/25 07:25 Labs: Laboratory Results - last 24 hr 06/08/25 06/09/25 09:00 07:25 WBC 11.3 H 8.9 RBC 4.63 3.98 L Hgb 16.2 H 14.0 Hct 47.1 H 40.9 MCV 101.8 H 102.7 H MCH 35.1 H 35.1 H MCHC 34.5 34.2 RDW 16.9 H 16.8 H Plt Count 235 193 Neut % (Auto) 91.1 H 84.5 H Lymph % (Auto) 4.3 L 9.0 L [place] % (Auto) 4.2 5.7 Eos % (Auto) 0.1 L 0.4 L Baso % (Auto) 0.3 0.4 Neut # (Auto) 92505 H 7500 H Lymph # (Auto) 500 L 800 L [place] # (Auto) 500 500 Eos # (Auto) 0 0 Baso # (Auto) 0 0 Sodium 139 138 Potassium 3.6 3.6 Chloride 101 103 Carbon Dioxide 28 28 BUN 4 L 3 L Creatinine 0.36 L 0.36 L Estimated GFR > 60 > 60 BUN/Creatinine Ratio 11.1 8.3 Glucose 142 H 114 H Calcium 9.3 8.5 Total Bilirubin 1.5 H 1.4 H AST 46 H 28 ALT 47 H 28 Alkaline Phosphatase 109 75 Total Protein 7.1 5.7 L Albumin 4.2 3.2 L Globulin 2.9 2.5 Albumin/Globulin Ratio 1.4 1.3 Amylase 148 H Lipase 707 H PFSH Medical History Irregular menstrual cycle (~2011) Esophagitis (~2006) Surgical History Hx of toe surgery (2007) Hx of wisdom tooth extraction (2011) Family History Father Age: 63 Hypertension Kidney disease Social History household members: spouse and children Smoking Status: Current some day smoker alcohol intake: current substance use type: does not use Assessment & Plan Assessment & Plan narrative: Pancreatitis. Probable alcoholic. No significant change in symptoms. Lipase is pending amylase is not significantly elevated and will need to follow. Continue clear liquids as tolerated IV hydration and follow electrolytes overall is stable. Alcohol use. She is never withdrew on us before. I do not think she is going to withdraw but will need to follow. Discussion needs to quit. Alcoholic hepatitis. Resolved. Will follow. Dehydration IV fluid will continue. Patient is not taking much p.o.. Seems to be doing well. Mild elevation of blood sugar seems improved will follow DVT prophylaxis on Lovenox. GI prophylaxis on PPI Code status full. Disposition. Probably will be a couple of days but will have to see how things go. Hopefully maybe tomorrow we can start to feed her if she does well she can go home. She understands we discussed the importance of not drinking Time-Based Coding :: [TOTAL MINUTES] spent with patient and on the chart (including review of chart, obtaining history, exam, reviewing outside data, placing orders, documenting exam and treatment plan, and counseling patient) on [DATE].
[2025-06-09 08:37] LABS: Lipase 1118 U/L (23-300)
--- NOTE | 2025-06-09 11:03 | DIET.CONS ---
Dietary Consultation Note Admission Date: 06/08/2025 19:35 Assessment: 30 y F admitted for acute pancreatitis. Dietitian consulted for severe weight loss and appetite change. Met with pt at bedside who reports no solid PO intake for last 2 days and a decrease in PO intakes over the last week <50% of what she normally does per diet recall r/t N/V adb pain. Reports another incident in April this past year where she had 1 week of limited PO intakes as well related to N/V. Reports outside these 2 incidents in the last year, she has had normal PO intakes where she grazes throughout the day on various foods. Confirms a 30 lb weight loss over the past year. Hx of severe PCM last admission in Apr 2024. EMR ED note- notes 2-3 bottles of alcohol per day. Hx of acute pancreatitis thought to be related to alcohol consumption. NFPE with moderate muscle wasting in temples and deltoids. Ht: 170.18 cm Wt: 45.087 kg BMI: 15.5 UBW: 130 lb per pt (-24% weight loss within a year, severe) Last BM: 06/07/25 (06/08/25 19:26) MNA: 4 Lee Score: 20 Diet: 06/08/25 08:53 NPO Diet Diet Modifications: NPO Type: NPO except for Meds 06/08/25 Dinner Clear Liquid Diet Diet Modifications: Labs: RBC 3.98 X10^6/uL (4.0-5.2) L 06/09/25 07:25 Hgb 14.0 g/dL (12.0-16.0) 06/09/25 07:25 Hct 40.9 % (36-46) 06/09/25 07:25 Creatinine 0.36 mg/dL (0.52-1.04) L 06/09/25 07:25 Nutrition Diagnosis: Severe acute on chronic protein calorie malnutrition r/t excessive EtOH intakes with inadequate oral intakes and alterations in function of GI related organs as evidenced by ongoing nausea/vomiting with pancreatitis, 24% weight loss in 1 year (severe), BMI underweight for age (15.6), 2-3 bottles of alcohol per day, <50% of estimated energy intake for 7 days with <75% of estimated energy intake in >6 months Interventions: Discussed well tolerated options, setting intentional meals, nutrient dense options, protein supplementation Following for diet advancements per MD and PO tolerance EER: 1700 kcals (35 kcals vs MSJx1.25+250) 70 g protein (1.5 g/kg per PCM/pancreatitis) Monitoring/Evaluations: diet advancement Electronically Signed by: Lita Delvalle 06/09/25 11:03 Clinical Dietitian [address] [id number]
[2025-06-09 12:00] VITALS: BP 127/87; PULSE 62; RESP 14; TEMP 37.1; O2SAT 98
--- NOTE | 2025-06-09 15:25 | CM.DANOTE ---
Patient is a 30 yo female who was admitted INPT Status on 06/08/25 for Pancreatitis. Pt has NO INSURANCE at this time as BUTTS is inactive and pt's PCP is Dr. Meng Brady at [facility]. EMR was reviewed. Per MD, pt with ETOH pancreatitis and has been increasing her drinking to about 2 bottles a day and also being treated for dehydration. Discussion regarding need for cessation. Pt not yet tolerating clears and not yet stable for discharge. SW met briefly bedside with pt as she clearly is feeling unwell and explained role and pt confirms she is still living in [place] with her Sig Other and their kids and pt is independent with ADLs at baseline. Pt confirms she was admitted for similar last year and was able to identify that she tends to drink to deal with stressors. Pt had been given community resources for ETOH and housing support at that time and pt states she is aware of supportive options and declines further resources today. Pt plans to work on cessation of alcohol. Sig Other plans to provide transport at d/c. GERARDO Caruso Discharge Planning/Care Management CM Discharge Assessment Start: 06/08/25 13:34 Freq: Status: Active Protocol: Document 06/09/25 15:22 BF (Rec: 06/09/25 15:25 BF [id number]) Discharge Planning Assessment Assigned Discharge GERARDO Swift Rehabilitation Engineer Provider Meng Brady Insurance Comment currently Butts shows as inactive DPOA/Assigned informally spouse Moi Designee Name Contact Information [phone] Advance Directives? No Advance Directives No on File History Provided By Patient,Significant Other,Medical Record Has Patient been No admitted in last 30 days? Comment Last admit a year ago in Apr 2024 for similar Prior Living House Arrangements Household Members spouse,children Type of Drives own vehicle transporation used prior to admit Independent with ADL Yes 's Is patient alert and Yes oriented? Caregiver for Yes: kids at home Another Barriers to Yes Discharge Comment Currently pt's Benjamín is inactive Discharge Plan Home Transportation Family Arrangement Referrals Initiated None needed Whiteboard Updated Yes in Patient Room with name and ext. # of Fermenter Review Status In Process Please Provide Date 06/09/25 Initial DC Assessment Was Performed Next Review Type Continued Stay Review
[2025-06-09 18:00] VITALS: BP 127/87; PULSE 62; RESP 14; TEMP 37.1; O2SAT 98
[2025-06-09 20:00] VITALS: BP 109/74; PULSE 61; RESP 17; TEMP 36.6; O2SAT 98
[2025-06-10] MEDS: METOCLOPRAMIDE 10 MG/2 ML INJ IV ×3 (00:12→17:14)
[2025-06-10 02:00] VITALS: BP 122/82; PULSE 67; RESP 17; TEMP 36.8; O2SAT 97
[2025-06-10] MEDS: LACTATED RINGERS 1,000 ML 125 ML IV ×3 (03:20→19:44)
[2025-06-10] MEDS: ONDANSETRON 4 MG/2 ML INJ IV ×3 (06:14→21:05)
[2025-06-10 06:49] LABS: Alanine Aminotransferase 21 IU/L (<35); Albumin 3.2 g/dL (3.5-5.0); Albumin Globulin Ratio 1.3 (1.0-2.8); Alkaline Phosphatase 76 U/L (38-126); Blood Urea Nitrogen 3 mg/dL (7-17); Calcium 8.4 mg/dL (8.4-10.2); Carbon Dioxide 25 mmol/L (22-32); Chloride 103 mmol/L (98-107); Estimated Glomerular Filt Rate > 60 mL/min (>60); Globulin 2.5 g/dL (1.7-4.1); Glucose 81 mg/dL (70-99); HEMOLYSIS < 15 (0-50); Lipase 679 U/L (23-300); Potassium 3.5 mmol/L (3.4-5.1); Sodium 135 mmol/L (137-145); Total Protein 5.7 g/dL (6.3-8.2)
[2025-06-10] MEDS: PANTOPRAZOLE 40 MG VIAL 20 MG IV (07:50)
[2025-06-10 08:32] VITALS: BP 109/70; PULSE 66; RESP 14; TEMP 37.3; O2SAT 97
--- NOTE | 2025-06-10 10:03 | PM.PN.1 ---
Subjective Subjective Date Patient Seen: 06/10/25 Time Patient Seen: 10:00 Interval history: cc: pancreatitis dehydration nausea Feeling a little better today - able to drink some fluids apple juice staying down but no jello yet. Belly still achey. Sad today but agrees she is feeling better. Exam Vital Signs (past 8 hours): - 06/10/25 08:32 Temperature 99.1 F Pulse Rate 66 Respiratory Rate 14 Blood Pressure 109/70 Pulse Oximetry 97 Oxygen Flow Rate 0 Oxygen Delivery Method Room Air Oxygen Flow Rate 0 Narrative Exam Narrative: sitting up in bed watching TV Const Other: well developed, thin Resp Other: clear to auscultation bilaterally Cardio Other: regular rate s1/s2 no pedal edema GI Other: soft active bowel sounds with epigastric moderate tenderness to palpation Neuro Other: alert awake oriented Psych Other: :( Objective Labs 06/09/25 07:25 06/10/25 06:13 Labs: Laboratory Results - last 24 hr 06/10/25 06:13 Sodium 135 L Potassium 3.5 Chloride 103 Carbon Dioxide 25 BUN 3 L Creatinine 0.32 L Estimated GFR > 60 BUN/Creatinine Ratio 9.4 Glucose 81 Calcium 8.4 Total Bilirubin 1.3 AST 23 ALT 21 Alkaline Phosphatase 76 Total Protein 5.7 L Albumin 3.2 L Globulin 2.5 Albumin/Globulin Ratio 1.3 Lipase 679 H [facility] Medical History Irregular menstrual cycle (~2011) Esophagitis (~2006) Surgical History Hx of toe surgery (2006) Hx of wisdom tooth extraction (2011) Family History Father Age: 63 Hypertension Kidney disease Social History household members: spouse and children Smoking Status: Current some day smoker alcohol intake: current substance use type: does not use Assessment & Plan Assessment & Plan narrative: #Pancreatitis Improved after 2 days NPO, lipase now trending down she is able to take small amounts of fluids today. Continue clear liquids as tolerated IV hydration and follow electrolytes overall is stable. #Alcohol use No hx of withdrawal but does well with a bedtime ativan, agree I do not think she is going to withdraw but will need to follow. #Alcoholic hepatitis Resolved. Will follow. #Dehydration Continue IV fluid, taking much p.o.. Seems to be doing well. #Mild elevation of blood sugar improved will follow Dispo: may be ready to go home sat or sun when able to eat and take enough PO fluids DVT prophylaxis on Lovenox. GI prophylaxis on PPI Code status full PCP: Jose Antonio Diet: Clears, ADAT Time-Based Coding :: [TOTAL MINUTES] spent with patient and on the chart (including review of chart, obtaining history, exam, reviewing outside data, placing orders, documenting exam and treatment plan, and counseling patient) on [DATE].
[2025-06-10] MEDS: POTASSIUM CHLORIDE 20 MEQ/15 ML UDC 40 MEQ PO (10:42)
--- NOTE | 2025-06-10 12:37 | CM.DPC ---
DCP Cont. Reviewed EMR and team rounds for pt's medical status and updates. Per PCP, pt is advancing her diet from clears, slow to advance. Monitoring for any further evolving home d/c needs.
--- NOTE | 2025-06-10 14:23 | DIET.PN1 ---
Dietary Progress Note Assessment: F/u. Tolerating juice and lemon ice. Reports concern over trying anything else that she won't be able to tolerate it/will cause pain. Discussed starting slow and can trial a few sips and then wait awhile and continue as tolerated. Reviewed plan for increasing kcals/protein with set meals and snacks and bedtime snack. Provided handout on increasing kcals/protein and coupon for Ensure supplement drinks. Recc Ensure with meals when diet is advanced and pt is tolerating. Ht: 170.18 cm Wt: 45.087 kg BMI: 15.5 Last BM: 06/07/25 (06/08/25 19:26) MNA: 4 Lee Score: 21 Diet: 06/08/25 Dinner Clear Liquid Diet Diet Modifications: Labs: RBC 3.98 X10^6/uL (4.0-5.2) L 06/09/25 07:25 Hgb 14.0 g/dL (12.0-16.0) 06/09/25 07:25 Hct 40.9 % (36-46) 06/09/25 07:25 Creatinine 0.32 mg/dL (0.52-1.04) L 06/10/25 06:13 Electronically Signed by: Lita Delvalle 06/10/25 14:23 Clinical Dietitian [address] [address]
[2025-06-10 20:00] VITALS: BP 121/71; PULSE 82; RESP 17; TEMP 37.3; O2SAT 99
[2025-06-11 02:00] VITALS: BP 129/89; PULSE 79; RESP 17; TEMP 36.6; O2SAT 99
[2025-06-11] MEDS: LACTATED RINGERS 1,000 ML 125 ML IV ×3 (03:10→22:01)
[2025-06-11 06:57] LABS: Calcium 8.7 mg/dL (8.4-10.2); Carbon Dioxide 26 mmol/L (22-32); Chloride 102 mmol/L (98-107); Estimated Glomerular Filt Rate > 60 mL/min (>60); Glucose 86 mg/dL (70-99); HEMOLYSIS 21 (0-50); Potassium 3.7 mmol/L (3.4-5.1); Sodium 136 mmol/L (137-145)
[2025-06-11 06:59] LABS: Magnesium 1.6 mg/dL (1.6-2.3)
[2025-06-11 07:19] LABS: Blood Urea Nitrogen < 2 mg/dL (7-17)
[2025-06-11] MEDS: PANTOPRAZOLE 40 MG VIAL 20 MG IV (08:01)
[2025-06-11] MEDS: METOCLOPRAMIDE 10 MG/2 ML INJ IV ×2 (08:01→17:35)
[2025-06-11] MEDS: ENOXAPARIN 40 MG/0.4 ML SYRINGE SUBCUT (08:02)
[2025-06-11 08:19] VITALS: BP 122/91; PULSE 79; RESP 14; TEMP 36.6; O2SAT 99
--- NOTE | 2025-06-11 10:00 | PC.NURSE ---
Pt ambulated several times around the floor with IV pole; pt tolerated very well, stated pain improved with ambulating.
--- NOTE | 2025-06-11 10:30 | CM.DPC ---
DCP Cont: Per RN, pt still remains on clears but anticipates possible advancing of her diet today as pt is feeling better than she had previously. Pt has been ambulating the halls independently. Currently no concerns noted. Plan: SW to follow for pt to tolerate advancing diet for plan of home with spouse and kids when stable and pt aware of the ETOH community resources. GERARDO Caruso
[2025-06-11] MEDS: ONDANSETRON 4 MG/2 ML INJ IV ×2 (11:07→22:09)
--- NOTE | 2025-06-11 11:20 | PM.PN.1 ---
Subjective Subjective Date Patient Seen: 06/11/25 Time Patient Seen: 11:21 Interval history: Reviewed chart and events during hospitalization. [facility] in [facility] for Dr. Brady. Patient is doing better today. She was able to ambulate. She was some cramping yesterday evening but was able to ambulate and this resolved. She was on a clear liquid diet and has not advanced. She was hesitant to eat due to concern for pain. She is receiving IV pain medications every 4 hours. She is on IV fluids at 125 cc an hour. She is drinking much better yesterday and today. Patient has received lorazepam at bedtime she received 0.5 last night and did well with this. History of alcohol disuse syndrome but no history of withdrawal or withdrawal currently. Patient is urinating and is and no bowel movement No change in history 12 point review of systems unremarkable Exam Vital Signs (past 8 hours): - 06/11/25 08:19 Temperature 97.8 F Pulse Rate 79 Respiratory Rate 14 Blood Pressure 122/91 H Pulse Oximetry 99 Oxygen Flow Rate 0 Oxygen Delivery Method Room Air Oxygen Flow Rate 0 Narrative Exam Narrative: Afebrile vital signs are stable Patient is alert and oriented no apparent distress up brushing her teeth at the time I evaluate her HEENT is unremarkable mucous membranes moist and pink Neck: Supple without adenopathy Chest: Clear to auscultation without wheezes rhonchi crackles Cor: Regular rate and rhythm distant S1-S2 Abdomen: Positive bowel sounds, soft, nontender, nondistended Extremities: No edema, pulses intact Objective Labs 06/09/25 07:25 06/11/25 06:24 Labs: Laboratory Results - last 24 hr 06/11/25 06:24 Sodium 136 L Potassium 3.7 Chloride 102 Carbon Dioxide 26 BUN < 2 L Creatinine 0.31 L Estimated GFR > 60 BUN/Creatinine Ratio 6.5 Glucose 86 Calcium 8.7 Magnesium 1.6 [facility] Medical History Irregular menstrual cycle (~2011) Esophagitis (~2006) Surgical History Hx of toe surgery (2006) Hx of wisdom tooth extraction (2011) Family History Father Age: 63 Hypertension Kidney disease Social History household members: spouse and children Smoking Status: Current some day smoker alcohol intake: current substance use type: does not use Assessment & Plan Assessment & Plan narrative: #Pancreatitis Improved after 2 days NPO, lipase now trending down she is able to take small amounts of fluids today. Continue clear liquids as tolerated IV hydration and follow electrolytes overall is stable. Patient continues to slowly improve. We will encourage her to advance her diet and increase her p.o. intake. We will continue with the IV PPI and trial of p.o. pain medications in hopes for discharge tomorrow. Unfortunately lipase was not ordered today but has been trending down. Current lipase is pending. Will also consult dietary due to patient struggling with p.o. intake since having her gallbladder out in April of 2024 Patient has not been using much alcohol but does state prior to the onset of symptoms she did have 3 buzz balls in 1 setting. Suspect this may have been the causative agent #Alcohol use No hx of withdrawal but does well with a bedtime ativan, agree I do not think she is going to withdraw but will need to follow. Due to macrocytosis we will check vitamin B12 and folate and replace as indicated #Alcoholic hepatitis Resolved. Will follow. Will check LFTs tomorrow. #Dehydration Continue IV fluid, taking much p.o.. Seems to be doing well. We will decrease IV fluids to 75 cc an hour #Mild elevation of blood sugar improved will follow Dispo: Home once p.o. intake is improved and patient is tolerating p.o. medications DVT prophylaxis on Lovenox. GI prophylaxis on PPI Code full PCP: Jose Antonio Diet: Clears, ADAT 53 minutes was spent with patient in reviewing her chart both clinic in hospital in hospitalization meeting with patient and formulating a plan and documentation Time-Based Coding :: [TOTAL MINUTES] spent with patient and on the chart (including review of chart, obtaining history, exam, reviewing outside data, placing orders, documenting exam and treatment plan, and counseling patient) on [DATE].
[2025-06-11 11:43] LABS: Lipase 404 U/L (23-300)
[2025-06-11 12:00] LABS: Add Manual Diff / Slide Review NO; Hematocrit 40.2 % (36-46); Hemoglobin 13.5 g/dL (12.0-16.0); Lymphocytes Absolute Auto 1300 /uL (1100-4500); Mean Corpuscular HGB Conc 33.6 % (30-36); Mean Corpuscular Hemoglobin 35.3 PG (26-34); Mean Corpuscular Volume 105.1 fL (80-100); Platelet Count 170 X10^3/uL (150-400)
[2025-06-11 12:50] LABS: Folate 2.5 ng/mL (2.76-20.0); Vitamin B12 912 pg/mL (239-931)
[2025-06-11 20:00] VITALS: BP 123/80; PULSE 65; RESP 16; TEMP 37.3; O2SAT 99
[2025-06-12] MEDS: ONDANSETRON 4 MG/2 ML INJ IV (04:32)
[2025-06-12 07:00] VITALS: BP 115/84; PULSE 96; RESP 16; TEMP 37.3; O2SAT 98
[2025-06-12 08:00] LABS: Add Manual Diff / Slide Review NO; Hematocrit 41.1 % (36-46); Hemoglobin 14.1 g/dL (12.0-16.0); Lymphocytes Absolute Auto 800 /uL (1100-4500); Mean Corpuscular HGB Conc 34.2 % (30-36); Mean Corpuscular Hemoglobin 35.7 PG (26-34); Mean Corpuscular Volume 104.3 fL (80-100); Platelet Count 178 X10^3/uL (150-400)
[2025-06-12 08:06] LABS: Alanine Aminotransferase 15 IU/L (<35); Albumin 3.4 g/dL (3.5-5.0); Albumin Globulin Ratio 1.3 (1.0-2.8); Alkaline Phosphatase 72 U/L (38-126); Amylase 54 U/L (30-110); Calcium 8.6 mg/dL (8.4-10.2); Carbon Dioxide 24 mmol/L (22-32); Chloride 102 mmol/L (98-107); Estimated Glomerular Filt Rate > 60 mL/min (>60); Globulin 2.7 g/dL (1.7-4.1); Glucose 91 mg/dL (70-99); HEMOLYSIS < 15 (0-50); Lipase 269 U/L (23-300); Potassium 3.6 mmol/L (3.4-5.1); Sodium 136 mmol/L (137-145); Total Protein 6.1 g/dL (6.3-8.2)
[2025-06-12 08:07] LABS: Magnesium 1.6 mg/dL (1.6-2.3)
[2025-06-12 08:10] LABS: Blood Urea Nitrogen < 2 mg/dL (7-17)
[2025-06-12] MEDS: PANTOPRAZOLE 40 MG VIAL 20 MG IV (10:05)
[2025-06-12] MEDS: ENOXAPARIN 40 MG/0.4 ML SYRINGE SUBCUT (10:05)
[2025-06-12] MEDS: MAGNESIUM CHLORIDE 64 MG TABLET 128 MG PO (10:06)
--- NOTE | 2025-06-12 12:08 | P.DS_ITS ---
History of Present Illness History of Present Illness Date Patient Seen: 06/12/25 Time Patient Seen: 12:08 Chief complaint: Lower Abdominal pain 2 days ago Narrative: Patient is doing much better. She feels she was turned the corner. She was able to tolerate p.o. hydrocodone is only had to take 2 of them. She feels the nausea is much better she is working to be able to eat more. She did have a bowel movement. She was urinating normally and not having any vomiting overall markedly improved. 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 Suspect this was secondary to ingestion of alcohol. 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 She was admitted to the hospital was made NPO nausea vomiting and pain was controlled and patient is very slowly advanced her diet and was switched over the oral analgesics and was discharged home on June 12. Discharge medications will be omeprazole daily, abstinence from alcohol, hydrocodone as needed and Zofran as needed Patient will follow up with Dr. Brady next week Exam Vital Signs (past 8 hours): - 06/12/25 07:00 Temperature 99.2 F Pulse Rate 96 H Respiratory Rate 16 Blood Pressure 115/84 Pulse Oximetry 98 Oxygen Delivery Method Room Air Oxygen Flow Rate 0 Narrative Exam Narrative: Afebrile vital signs are stable Patient looks much better today HEENT is unremarkable Neck: Supple Chest: Clear to auscultation without wheezes rhonchi or crackles Cor: Regular rate and rhythm without murmur rubs or gallops Abdomen: Positive bowel sounds, soft, nontender, nondistended Extremities unremarkable Objective Labs 06/12/25 06:56 06/12/25 06:56 Labs: Laboratory Results - last 24 hr 06/11/25 06/12/25 06:24 06:56 WBC 4.9 RBC 3.94 L Hgb 14.1 Hct 41.1 MCV 104.3 H MCH 35.7 H MCHC 34.2 RDW 17.3 H Plt Count 178 Neut % (Auto) 73.2 Lymph % (Auto) 16.7 L Spink % (Auto) 7.5 Eos % (Auto) 2.1 Baso % (Auto) 0.5 Neut # (Auto) 3600 Lymph # (Auto) 800 L Spink # (Auto) 400 Eos # (Auto) 100 Baso # (Auto) 0 Sodium 136 L Potassium 3.6 Chloride 102 Carbon Dioxide 24 BUN < 2 L Creatinine 0.31 L Estimated GFR > 60 BUN/Creatinine Ratio 6.5 Glucose 91 Calcium 8.6 Magnesium 1.6 Total Bilirubin 0.8 AST 23 ALT 15 Alkaline Phosphatase 72 Total Protein 6.1 L Albumin 3.4 L Globulin 2.7 Albumin/Globulin Ratio 1.3 Amylase 54 Lipase 269 Vitamin B12 912 Folate 2.5 L PFSH Medical History Irregular menstrual cycle (~2011) Esophagitis (~2006) Surgical History Hx of toe surgery (2006) Hx of wisdom tooth extraction (2011) Family History Father Age: 63 Hypertension Kidney disease Social History household members: spouse and children Smoking Status: Current some day smoker alcohol intake: current substance use type: does not use Discharge Assessment & Plan Assessment and Plan Assessment: #Pancreatitis Patient is doing much better. She was able to tolerate p.o. hydrocodone and is not having significant nausea or abdominal pain. She has only had to take 2 hydrocodone. She was working hard on increasing her diet. Will discharge to home with small amount of hydrocodone to take as needed and Zofran. She will abstain from alcohol and will follow up with Dr. Brady next week #Alcohol use Patient will continue to abstain from alcohol and she does not feel this will be a problem #Alcoholic hepatitis Resolved. Will follow. #Dehydration Continue IV fluid, taking much p.o.. Seems to be doing well. Stable off IV fluids #Mild elevation of blood sugar improved will follow 36 minutes was spent with patient in reviewing her chart both clinic in hospital in hospitalization meeting with patient and formulating a plan and documentation and organizing discharge Discharge Plan Discharge Plan Patient Disposition: Home Discharge orders & Medications Prescriptions: New hydrocodone-acetaminophen 5-325 mg Tablet 1 tab PO Q4HR PRN (Reason: Pain, Moderate (4-6)) Qty: 20 0RF ondansetron HCl 4 mg tablet 4 mg PO Q8H Qty: 20 0RF Continued omeprazole 20 mg capsule,delayed release(DR/EC) 20 mg PO DAILY Follow up/Referrals: Meng Brady MD [Primary Care Provider, [facility]] Visit Report/Discharge Packet Stand Alone Forms: Patient Portal/API, Stroke Signs & Symptoms Discharge Data Primary Care Provider: Meng Brady
== END 2025-06-12 13:00 | disposition home or self-care (01) | DRG 439 ==
LOC: ED 12:04 → AC 13:42 → LABOR 19:39 → AC 06-09 06:48
PROVIDERS: Family Medicine; Pharmacist Pharmacist Clinician (PhC)/ Clinical Pharmacy Specialist; Admitting Provider Family Medicine; Emergency Provider Emergency Medicine; Family Provider Family Medicine; PCP Family Medicine; Referring Provider Emergency Medicine; Visit Provider Family Medicine
DX: K85.20 Alcohol induced acute pancreatitis without necrosis or infection (principal); F10.988 Alcohol use, unspecified with other alcohol-induced disorder; Z68.1 Body mass index [BMI] 19.9 or less, adult; R63.4 Abnormal weight loss; E86.0 Dehydration; K70.10 Alcoholic hepatitis without ascites; F17.200 Nicotine dependence, unspecified, uncomplicated; R79.89 Other specified abnormal findings of blood chemistry; Z90.49 Acquired absence of other specified parts of digestive tract; Z86.718 Personal history of other venous thrombosis and embolism
CPT/HCPCS: 36415; 74177; 80048; 80053; 81003; 81025; 82150; 82607; 82746; 83690; 83735; 85025; 93005; 96361; 96374; 96375; 96376; 99284; J1171; J1650; J2060; J2405; J2470; J2765; J7030; J7120; Q9967